=== PATIENT | male | born 1955 | race Caucasian/White ===

== ENCOUNTER 2020-02-08 06:24 | Inpatient (IN) ==
--- OUTSIDE RECORDS SUMMARY | 2020-02-08 06:28 | External Medical Summary | Continuity of Care Document ---
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 Refills: 0 metFORMIN HCl - 500 MG Oral Tablet; Take 1 tablet twice ugo y with meals Quantity: 60 Refills: 3 Spironolactone 25 MG Oral Tablet; TAKE 1 TABLET DAILY. Refills: 0 Potassium Chloride 10 MEQ TBCR; TAKE 1 TABLET DAILY. Refills: 0 Furosemide 40 MG Oral Tablet; TAKE 1 TABLET DAILY. Refills: 0 Amiodarone HCl - 200 MG Oral Tablet; TAKE 1/2 TABLET DAILY. Refills: 0 Valsartan 160 MG Oral Tablet; take 1/2 tablet once daily. Refills: 0 Atorvastatin Calcium 40 MG Oral Tablet; TAKE 1/2 TABLET UGO Y. Refills: 0 Warfarin Sodium 7.5 MG Oral Tablet; TAKE 1 1/2 TABLET DAILY. Refills: 0 Procedures History of Appendectomy Status: Complete d History of Pilonidal Cyst Resection Stat us: Completed History of Surgery Vas Deferens Vasectomy Status: Completed History of Tonsillectomy Status: Complet ed History of Foot Surgery Status: Complete d History of Complete Colonoscopy Status: Completed History of Incision And Drainage Of Skin Abscess Status: Completed Neck Posterior History of Excision Of Lesion Neck Benign 2.1 To Status: Completed 29-Dec-2015 0:00 3cm Immunizations Immunizations not documented Family History Mother Family history of hypertension (V17.49) (Z82.49) Status: Act christiano Family history of borderline diabetes mellitus (V18.0) (Z83. 3) Status: Active Family history of malignant neoplasm (V16.9) (Z80.9) Status: Active Father Family history of hypertension (V17.49) (Z82.49) Status: Act christiano Family history of Emphysema lung (492.8) (J43.9) Status: Act christiano Grandmother Family history of borderline diabetes mellitus (V18.0) (Z83. 3) Status: Active Grandfather Family history of cardiac disorder (V17.49) (Z82.49) Status: Active Social History - Smoking Status Ex-smoker Plan of Treatment Planned Observations Planned Goals not documented Results No Known Results Results not documented Encounters Appointment; Surg SC1, Nursing Station 12-Jan-2016 8:30 Encounter Diagnosis: Problem not documented
--- OUTSIDE RECORDS SUMMARY | 2020-02-08 06:28 | External Medical Summary | Continuity of Care Document ---
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 Refills: 0 Atorvastatin Calcium 40 MG Oral Tablet; TAKE 1/2 TABLET UGO Y. Refills: 0 Valsartan 160 MG Oral Tablet; take 1/2 tablet once daily. Refills: 0 Amiodarone HCl - 200 MG Oral Tablet; TAKE 1/2 TABLET DAILY. Refills: 0 Furosemide 40 MG Oral Tablet; TAKE 1 TABLET DAILY. Refills: 0 Potassium Chloride 10 MEQ TBCR; TAKE 1 TABLET DAILY. Refills: 0 Spironolactone 25 MG Oral Tablet; TAKE 1 TABLET DAILY. Refills: 0 metFORMIN HCl - 500 MG Oral Tablet; Take 1 tablet twice ugo y with meals Quantity: 60 Refills: 3 Coreg 6.25 MG Oral Tablet; TAKE 1 TABLET TWICE DAILY WITH ME ALS. Refills: 0 Procedures History of Appendectomy Status: [...] (Z82.49) Status: Act christiano Family history of malignant neoplasm (V16.9) (Z80.9) Status: Active Family history of borderline diabetes mellitus (V18.0) (Z83. 3) Status: Active Father Family history of hypertension (V17.49) (Z82.49) Status: Act christiano Family history of Emphysema lung (492.8) (J43.9) Status: Act christiano Grandfather Family history of cardiac disorder (V17.49) (Z82.49) Status: Active Grandmother Family history of borderline diabetes mellitus (V18.0) (Z83. 3) Status: Active Social History - Smoking Status Ex-smoker Plan of Treatment Planned Observations Planned Goals not documented Results No Known Results Results not documented Encounters Appointment; Surg SC1, Nursing Station 12-Jan-2016 8:30 Encounter Diagnosis: Problem not documented
[2020-02-08] MEDS ORDERED: METOPROLOL TARTRATE 1 MG/ML VIAL IV STA ×2 (06:35→07:27)
[2020-02-08 06:52] LABS: Basophils # (auto) 0.03 K/uL (0-0.2); Basophils % (auto) 0.2 %; Eosinophils # (auto) 0.26 K/uL (0-0.5); Eosinophils % (auto) 1.9 %; Hematocrit (blood only) 41.1 % (42-52); Hemoglobin 13.3 g/dL (14.0-18.0); Immature Granulocytes # (auto) 0.05 K/uL (0.00-0.02); Immature Granulocytes % (auto) 0.4 %; Lymphocytes # (auto) 2.88 K/uL (1.2-3.4); Lymphocytes % (auto) 20.7 %; Mean Corpuscular Hemoglobin 26.3 pg (25-34); Mean Corpuscular Hgb Conc 32.4 g/dL (32-36); Mean Corpuscular Volume 81.4 fL (80-100); Mean Platelet Volume 10.5 fL (7.4-10.4); Monocytes # (auto) 1.13 K/uL (0.11-0.59); Monocytes % (auto) 8.1 %; Neutrophils # (auto) 9.59 K/uL (1.4-6.5); Neutrophils % (auto) 68.7 %; Platelet Count 274 K/uL (130-400); RDW Coefficient of Variation 14.3 % (11.5-14.5); RDW Standard Deviation 42.3 fL (36.4-46.3); Red Blood Count 5.05 M/uL (4.7-6.1); White Blood Count 13.94 K/uL (4.8-10.8)
[2020-02-08 07:09] LABS: Albumin Level 3.9 gm/dl (3.4-5.0); BUN Creatinine Ratio 13.6 (10-20); Calcium 9.1 mg/dl (8.5-10.1); Creatinine Clr Calc Pharmacy 64.8 ml/min; Est GFR (African American) 56.4; Est GFR (Non-African American) 48.7; Magnesium 2.2 mg/dl (1.8-2.4); Potassium 4.3 mmol/L (3.5-5.1)
[2020-02-08 07:20] LABS: Globulin 4.1 gm/dl (2.5-4.0); Phosphorus 3.4 mg/dl (2.5-4.9); Thyroid Stimulating Hormone 1.5 uIu/ml (0.300-4.500)
[2020-02-08 07:45] LABS: Partial Thromboplastin Ratio 1.1; Partial Thromboplastin Time 29.9 Seconds (21.0-31.0)
[2020-02-08] MEDS ORDERED: dilTIAZem HCl 5 MG/ML 5 ML VIAL IV STA (07:47)
--- NOTE | 2020-02-08 07:52 | XRay Report ---
XR chest 1V portable CLINICAL HISTORY: atrial fib COMPARISON STUDY: Chest radiograph May 05, 2015. FINDINGS: Lung volumes are normal. There is moderate cardiomegaly. No pneumothorax is noted. There ar e suspected trace bilateral pleural effusions. Interstitial thickening favors mild pulmonary edema. T here are Cecy B lines. Cardiomegaly is unchanged. IMPRESSION: 1. Interstitial thickening suggestive of mild pulmonary edema. 2. Suspected trace bilateral pleural effusions. 3. Cardiomegaly. ACT 112: Negative or not required by law. Electronically signed by: Bird Chatman M.D. 02/08/2020 7:51 AM
[2020-02-08] MEDS ORDERED: FUROSEMIDE 40 MG/4 ML VIAL IV STA (08:36)
[2020-02-08] MEDS ORDERED: ACETAMINOPHEN 325 MG TAB PO PRN (08:38)
[2020-02-08] MEDS ORDERED: POLYETHYLENE (MIRALAX) 17 GM PACK PO PRN (08:38)
--- NOTE | 2020-02-08 09:07 | History & Physical Report ---
Date of Service February 08, 2020 Assessment & Plan (1) Atrial fibrillation with RVR: History of A. fib with RVR, status post cardioversion in 2016 Recurrence of A. fib with RVR, and was planned for cardioversion early next week, however presented with increased shortness of breath EKG in ED, shows A. fib with RVR, and chronic LBBB, chest x-ray notable for increased interstitial markings, proBNP around 3000 potassium normal at 4.3, magnesium normal at 2.2, will keep K>4, Mg>2 TSH normal 1.5 History of cardiomyopathy, in 2016, then return to normal LV function, however now presents with CHF exacerbation likely secondary to increased heart rate Plan to obtain echocardiogram Plan for cardioversion tomorrow, February 08 NPO after MN Cont. home medications, Coreg, losartan, spironolactone, furosemide Patient received 40 mg IV furosemide in the ED Dr. Bolden, cardiology, contacted by the ED provider, appreciate their input (2) Hypertension: Continue home Coreg, losartan, spironolactone (3) Hyperlipidemia: Continue home Lipitor (4) CKD (chronic kidney disease) stage 3, GFR 30-59 ml/min: Continue monitor renal function, currently at baseline Try to avoid NSAIDs, nephrotoxic agents (5) Diabetes: At home, patient is on oral regimen Metformin and Invokana As it is expected that patient will be likely discharged after cardioversion tomorrow, will continue home medications DVT ppx: On Eliquis Full code Disposition: Plan to return home after cardioversion tomorrow History of Present Illness Chief Complaint: Shortness of breath, Afib w/ RVR Primary Care Provider: Ivan Justin DO Patient is a 65-year-old male, with history of A. fib, hx of nonischemic cardiomyopathy in 2016, with return to normal LV function, chronic left bundle branch block, hypertension, hyperlipidemia, type of diabetes mellitus, hyperferritinenemia, who presents with shortness of breath. Patient has history of A. fib with RVR, underwent cardioversion in 2016. Since then he has been doing well until about 3 weeks ago when he again became dizzy, and short of breath. Patient states he never experienced palpitations. He follows with Dr. Bolden, from cardiology service, for his atrial fibrillation and as a matter of fact he was scheduled for cardioversion early next week. However over the weekend patient developed increased shortness of breath and therefore now presented to the emergency room. Patient was also recently started on Eliquis by Dr. Bolden. Patient denies any fevers or chills. Denies any sick contacts. Had Covid testing done on February 05, and was negative. Denies any abdominal pain, nausea or vomiting. Says that he has good appetite, however he lost significant amount of weight, since his [facility] in June 2019 . Patient states that he has been more active in his yard, and unfortunately his work was very sedentary. He did notice though that in the past couple of days he accumulated more fluid in his abdominal girth and lower extremities. Patient's is at the bedside, and confirms that his abdomen is now little bigger than his normal after he lost weight. Also she feels that his lower extremities are slightly more swollen. Chest x-ray in emergency room showed some interstitial pulmonary edema. In emergency room, patient was given IV Lasix 40 mg, metoprolol IV and diltiazem IV. Dr. Bolden was contacted by ED provider. Plan for cardioversion tomorrow (02/09/2020). Allergies Allergy/AdvReac Type Severity Reaction Status Date / Time cephalexin Allergy Intermediate hives Verified 02/08/20 06:54 Home Medications Home Medications Medication Instructions Recorded Confirmed Type apixaban [Eliquis] 5 mg PO BID 02/08/20 02/08/20 History atorvastatin 40 mg PO DAILY 02/08/20 02/08/20 History canagliflozin [Invokana] 300 mg PO DAILY 02/08/20 02/08/20 History carvedilol 9.375 mg PO BID 02/08/20 02/08/20 History furosemide [Lasix] 20 mg PO DAILY 02/08/20 02/08/20 History losartan 50 mg PO DAILY 02/08/20 02/08/20 History metformin 1,000 mg PO BIDM 02/08/20 02/08/20 History potassium chloride 10 meq PO DAILY 02/08/20 02/08/20 History spironolactone 25 mg PO DAILY 02/08/20 02/08/20 History Past Med/Surg History Medical History (Updated 02/08/20 @ 11:41 by [place] Mckinney MD) Atrial fibrillation with RVR CKD (chronic kidney disease) stage 3, GFR 30-59 ml/min Diabetes H/O pilonidal cyst Hyperlipidemia Hypertension LBBB (left bundle branch block) Tachycardia induced cardiomyopathy Thyroid nodule Surgical History H/O colonoscopy S/P appendectomy S/P T&A (status post tonsillectomy and adenoidectomy) S/P vasectomy Family History Mother Cancer lung Father Emphysema lung Hypertension Grandfather (Paternal) Heart disease [place] at age 65 Grandmother Diabetes Social History Smoking Status: Never smoker Hx Alcohol Use: Yes Hx Substance Use: No Preferred Language: German Communication Ability: Effective Beliefs That Will Affect Care: None Current Living Situation: Spouse Other Information That Helps Us Care for You: No Feels Safe at Home: Yes Safety Concerns: Feels Safe At This Time Assistive Devices: Glasses Assistive Devices Comment: reading glasses Review of Systems Review of Systems: All systems reviewed & are unremarkable except as noted in HPI & below Constitutional: no fever and no chills Eyes: no problem reported Ear, Nose, Mouth, Throat: no problem reported Respiratory: + dyspnea; no cough Cardiovascular: + edema (abdominal girth and LE edema b/l); no chest pain and no palpitations Gastrointestinal: no abdominal pain, no nausea and no vomiting Genitourinary: no problem reported Musculoskeletal: no problem reported Integumentary: no problem reported Neurologic: no problem reported Psychiatric: no problem reported Endocrine: no problem reported Hematologic / Lymphatic: no problem reported Allergy / Immunological: no problem reported Physical Exam Physical Exam: Constitutional: Elderly male, lying in bed, in no acute distress, WD/WN, vitals as above Eyes: PERRL, EOMI, conjunctivae normal, anicteric sclerae ENMT: external ear and nose normal, oropharynx normal Neck: trachea midline, no thyromegaly Respiratory: normal respiratory effort, lungs clear to auscultation Cardiovascular: Rate/Rhythm: + tachycardic and + irregularly irregular Heart Sounds: normal S1 and normal S2; no gallop and no murmur, no JVD and no carotid bruit Extremities: + edema (1-2+) Gastrointestinal (Abdomen): normal bowel sounds, soft, nontender, mildly distended Musculoskeletal: no cyanosis or clubbing, extremities motor strength 5/5, moves extremities spontaneously Skin: no rashes, warm and dry Neurologic: PERRL, EOMI, no face palsy, no dysarthria, moves extremities spontaneously Psychiatric: A+Ox3, euthymic affect Results & Data Results & Data ([facility]) Vital Signs (Past 12 Hours) Vital Signs Temp Pulse Pulse Resp BP BP Pulse Ox 02/08/20 08:30 95 H 18 130/83 96 02/08/20 08:20 110 H 20 97 02/08/20 08:10 93 H 18 96 02/08/20 08:02 126 H 19 121/95 95 02/08/20 08:01 118 H 132 H 19 121/95 96 02/08/20 08:00 121 H 21 97 02/08/20 07:50 113 H 18 95 02/08/20 07:40 102 H 18 95 02/08/20 07:35 102 H 20 136/85 96 02/08/20 07:31 120 H 20 136/85 96 02/08/20 07:30 127 H 16 97 02/08/20 07:20 118 H 21 96 02/08/20 07:10 130 H 18 96 02/08/20 07:00 122 H 17 96 02/08/20 06:50 106 H 17 98 02/08/20 06:44 132 H 123/89 02/08/20 06:41 98 02/08/20 06:40 136 H 16 97 02/08/20 06:32 37.1 C 126 H 20 123/89 99 02/08/20 06:31 157 H 18 123/89 98 02/08/20 06:30 117 H 9 L Laboratory Results 02/08/20 02/08/20 02/08/20 Range/Units 06:37 06:37 06:37 WBC 13.94 H (4.8-10.8) K/uL RBC 5.05 (4.7-6.1) M/uL Hgb 13.3 L (14.0-18.0) g/dL Hct 41.1 L (42-52) % MCV 81.4 (80-100) fL MCH 26.3 (25-34) pg MCHC 32.4 (32-36) g/dL RDW Std Deviation 42.3 (36.4-46.3) fL RDW Coeff of Josey 14.3 (11.5-14.5) % Plt Count 274 (130-400) K/uL MPV 10.5 H (7.4-10.4) fL Immature Gran % (Auto) 0.4 % Neut % (Auto) 68.7 % Lymph % (Auto) 20.7 % [place] % (Auto) 8.1 % Eos % (Auto) 1.9 % Baso % (Auto) 0.2 % Neut # (Auto) 9.59 H (1.4-6.5) K/uL Lymph # (Auto) 2.88 (1.2-3.4) K/uL [place] # (Auto) 1.13 H (0.11-0.59) K/uL Eos # (Auto) 0.26 (0-0.5) K/uL Baso # (Auto) 0.03 (0-0.2) K/uL Immature Gran # (Auto) 0.05 H (0.00-0.02) K/uL APTT 29.9 (21.0-31.0) Seconds PTT Ratio 1.1 Sodium 137 (136-145) mmol/L Potassium 4.3 (3.5-5.1) mmol/L Chloride 105 (98-107) mmol/L Carbon Dioxide 26 (21-32) mmol/L Anion Gap 6.0 (3-11) BUN 20 H (7-18) mg/dl Creatinine 1.47 H (0.6-1.4) mg/dl Est Cr Clr Drug Dosing 64.8 ml/min Est GFR ( Amer) 56.4 Est GFR (Non-Af Amer) 48.7 BUN/Creatinine Ratio 13.6 (10-20) Glucose 144 H (70-99) mg/dl Calcium 9.1 (8.5-10.1) mg/dl Phosphorus 3.4 (2.5-4.9) mg/dl Magnesium 2.2 (1.8-2.4) mg/dl Total Bilirubin 1.0 (0.2-1) mg/dl AST 15 (15-37) U/L ALT 28 (12-78) U/L Alkaline Phosphatase 73 (45-117) U/L Total Protein 8.0 (6.4-8.2) gm/dl Albumin 3.9 (3.4-5.0) gm/dl Globulin 4.1 H (2.5-4.0) gm/dl Albumin/Globulin Ratio 1.0 (0.9-2) TSH 1.500 (0.300-4.500) uIu/ml Diagnostic Findings CXR 02/08/2020 IMPRESSION: 1. Interstitial thickening suggestive of mild pulmonary edema. 2. Suspected trace bilateral pleural effusions. 3. Cardiomegaly.
--- NOTE | 2020-02-08 10:27 | Cardiology Consultation ---
Date of Consultation February 08, 2020 Assessment & Plan (1) Atrial fibrillation with RVR: Patient is a 65-year-old male with past history of tachycardia mediated cardiomyopathy, chronic left bundle branch block presents now with episodic dyspnea. He is recently been observed of lapsed back into atrial fibrillation and has anticipated synchronized electrical cardioversion. Exam and history suggest moderate heart failure due to elevation in heart rates, possible decline in overall systolic Plan: Patient received a single dose of IV furosemide appropriately in the emergency room. Echocardiogram will be ordered to assess LV function Patient to be kept n.p.o. with anticipation of synchronized electrical cardioversion in a.m. Continue prehospital medications (2) LBBB (left bundle branch block): (3) Tachycardia induced cardiomyopathy: Echocardiogram to be reviewed today (4) Congestive heart failure due to cardiomyopathy: Agree with IV furosemide administered today (5) CKD (chronic kidney disease) stage 3, GFR 30-59 ml/min: (6) Hypertension: (7) Diabetes: History of Present Illness Reason for Consultation: Atrial fibrillation with rapid response, acute dyspnea Requesting Physician: Dr. Guerra Attending Physician: Dr Mckinney History of Present Illness Patient is a 65-year-old male with ongoing issues which include 1. Nonischemic cardiomyopathy diagnosed April 2015 with return to normal LV function 2. Tachycardia mediated LV dysfunction with atrial fibrillation with rapid response 3. Chronic left bundle branch block 4. Hypertension 5. Cardiac catheterization 2015 without obstructive coronary disease 6. Hyperlipidemia on therapy 7. Hyperglycemia Patient's recent history is notable for a lapse back into atrial fibrillation documented on 01/15/2020. Anticoagulation was reinitiated. He is currently scheduled for planned cardioversion next week however is had episodic events of acute dyspnea at night. He presented emergency room due to symptoms or complaints. Atrial fibrillation rates elevated on presentation. Chest x-ray with mild increase in interstitial markings and edema. No fevers chills unexplained infections. No bleeding difficulties. COVID-19 screen 02/06/2020 negative Allergies Allergy/AdvReac Type Severity Reaction Status Date / Time cephalexin Allergy Intermediate hives Verified 02/08/20 06:54 Home Medications Home Medications Medication Instructions Recorded Confirmed Type apixaban [Eliquis] 5 mg PO BID 02/08/20 02/08/20 History atorvastatin 40 mg PO DAILY 02/08/20 02/08/20 History canagliflozin [Invokana] 300 mg PO DAILY 02/08/20 02/08/20 History carvedilol 9.375 mg PO BID 02/08/20 02/08/20 History furosemide [Lasix] 20 mg PO DAILY 02/08/20 02/08/20 History losartan 50 mg PO DAILY 02/08/20 02/08/20 History metformin 1,000 mg PO BIDM 02/08/20 02/08/20 History potassium chloride 10 meq PO DAILY 02/08/20 02/08/20 History spironolactone 25 mg PO DAILY 02/08/20 02/08/20 History Patient History Medical History Atrial fibrillation with RVR Diabetes H/O pilonidal cyst Hyperlipidemia Hypertension Thyroid nodule Surgical History H/O colonoscopy S/P appendectomy S/P T&A (status post tonsillectomy and adenoidectomy) S/P vasectomy Family History Mother Cancer lung Father Emphysema lung Hypertension Grandfather (Paternal) Heart disease [place] at age 65 Grandmother Diabetes Social History Smoking Status: Never smoker Feels Safe at Home: Yes Review of Systems Review of Systems: All systems reviewed & are unremarkable except as noted in HPI & below Physical Exam Constitutional: WD/WN, vitals as above Eyes: PERRL, conjunctivae normal, anicteric sclerae ENMT: external ear and nose normal, oropharynx normal Neck: trachea midline, no thyromegaly Respiratory: normal respiratory effort, lungs clear to auscultation Cardiovascular: Rate/Rhythm: + tachycardic and + irregularly irregular Heart Sounds: normal S1 and normal S2; no gallop and no murmur Palpation: normal PMI Vessels: normal carotid upstroke and radial pulses present; no JVD and no carotid bruit Extremities: + edema (1-2+) Gastrointestinal (Abdomen): normal bowel sounds, soft, nontender, no hepatosplenomegaly Musculoskeletal: no cyanosis or clubbing, extremities motor strength 5/5 Skin: no rashes, warm and dry Neurologic: PERRL, EOMI, accommodation nl, no face palsy, no dysarthria Psychiatric: A+Ox3, euthymic affect Results & Data ([facility]) Vital Signs (Past 12 Hours) Vital Signs Temp Pulse Pulse Resp BP BP Pulse Ox 02/08/20 10:00 110 H 19 97/84 L 97 02/08/20 09:50 89 17 98 02/08/20 09:40 75 15 98 02/08/20 09:34 104 H 20 126/79 98 02/08/20 09:33 120 H 18 97 02/08/20 09:20 98 H 19 96 02/08/20 09:10 94 H 18 96 02/08/20 09:00 117 H 22 120/85 97 02/08/20 08:50 99 H 17 96 02/08/20 08:40 95 H 15 97 02/08/20 08:30 95 H 18 130/83 96 02/08/20 08:20 110 H 20 97 02/08/20 08:10 93 H 18 96 02/08/20 08:02 126 H 19 121/95 95 02/08/20 08:01 118 H 132 H 19 121/95 96 02/08/20 08:00 121 H 21 97 02/08/20 07:50 113 H 18 95 02/08/20 07:40 102 H 18 95 02/08/20 07:35 102 H 20 136/85 96 02/08/20 07:31 120 H 20 136/85 96 02/08/20 07:30 127 H 16 97 02/08/20 07:20 118 H 21 96 02/08/20 07:10 130 H 18 96 02/08/20 07:00 122 H 17 96 02/08/20 06:50 106 H 17 98 02/08/20 06:44 132 H 123/89 02/08/20 06:41 98 02/08/20 06:40 136 H 16 97 02/08/20 06:32 37.1 C 126 H 20 123/89 99 02/08/20 06:31 157 H 18 123/89 98 02/08/20 06:30 117 H 9 L Laboratory Results Laboratory Results - last 24 hr 02/08/20 02/08/20 02/08/20 06:37 06:37 06:37 WBC 13.94 H RBC 5.05 Hgb 13.3 L Hct 41.1 L MCV 81.4 MCH 26.3 MCHC 32.4 RDW Std Deviation 42.3 RDW Coeff of Josey 14.3 Plt Count 274 MPV 10.5 H Immature Gran % (Auto) 0.4 Neut % (Auto) 68.7 Lymph % (Auto) 20.7 [place] % (Auto) 8.1 Eos % (Auto) 1.9 Baso % (Auto) 0.2 Neut # (Auto) 9.59 H Lymph # (Auto) 2.88 [place] # (Auto) 1.13 H Eos # (Auto) 0.26 Baso # (Auto) 0.03 Immature Gran # (Auto) 0.05 H APTT 29.9 PTT Ratio 1.1 Sodium 137 Potassium 4.3 Chloride 105 Carbon Dioxide 26 Anion Gap 6.0 BUN 20 H Creatinine 1.47 H Est Cr Clr Drug Dosing 64.8 Est GFR ( Amer) 56.4 Est GFR (Non-Af Amer) 48.7 BUN/Creatinine Ratio 13.6 Glucose 144 H Calcium 9.1 Phosphorus 3.4 Magnesium 2.2 Total Bilirubin 1.0 AST 15 ALT 28 Alkaline Phosphatase 73 NT-Pro-B Natriuret Pep Total Protein 8.0 Albumin 3.9 Globulin 4.1 H Albumin/Globulin Ratio 1.0 TSH 1.500 02/08/20 06:37 WBC RBC Hgb Hct MCV MCH MCHC RDW Std Deviation RDW Coeff of Josey Plt Count MPV Immature Gran % (Auto) Neut % (Auto) Lymph % (Auto) [place] % (Auto) Eos % (Auto) Baso % (Auto) Neut # (Auto) Lymph # (Auto) [place] # (Auto) Eos # (Auto) Baso # (Auto) Immature Gran # (Auto) APTT PTT Ratio Sodium Potassium Chloride Carbon Dioxide Anion Gap BUN Creatinine Est Cr Clr Drug Dosing Est GFR ( Amer) Est GFR (Non-Af Amer) BUN/Creatinine Ratio Glucose Calcium Phosphorus Magnesium Total Bilirubin AST ALT Alkaline Phosphatase NT-Pro-B Natriuret Pep 3037 H Total Protein Albumin Globulin Albumin/Globulin Ratio TSH
[2020-02-08] MEDS ORDERED: PERFLUTREN LIPID MICROSPHERE (DEFINITY) IV ONE (11:44)
[2020-02-08] MEDS: carvediloL 6.25 MG TAB PO SCH ×2 (12:15→20:33)
[2020-02-08] MEDS: SPIRONOLACTONE 25 MG TAB PO SCH (12:16)
[2020-02-08] MEDS: LOSARTAN POTASSIUM 50 MG TAB PO SCH (12:16)
[2020-02-08] MEDS: FUROSEMIDE 20 MG TAB PO SCH (12:17)
[2020-02-08] MEDS: ATORVASTATIN 40 MG TAB PO SCH (12:17)
[2020-02-08] MEDS: APIXABAN 5 MG TABLET PO SCH ×2 (12:17→20:34)
--- NOTE | 2020-02-08 13:17 | Anesthesiology Consultation ---
Date of Service February 08, 2020 Assessment & Plan Chart Review Chart Review: Acceptable Risk for Surgery and Patient NOT seen in Pre Admission Testing History Height/Weight Height: 6 ft 1 in Weight: 112.5 kg Allergies Allergy/AdvReac Type Severity Reaction Status Date / Time cephalexin Allergy Intermediate hives Verified 02/08/20 06:54 Medications Home Medications Medication Instructions Recorded Confirmed Last Taken apixaban [Eliquis] 5 mg PO BID 02/08/20 02/08/20 02/07/20 atorvastatin 40 mg PO DAILY 02/08/20 02/08/20 02/07/20 canagliflozin [Invokana] 300 mg PO DAILY 02/08/20 02/08/20 02/07/20 carvedilol 9.375 mg PO BID 02/08/20 02/08/20 02/07/20 furosemide [Lasix] 20 mg PO DAILY 02/08/20 02/08/20 02/07/20 losartan 50 mg PO DAILY 02/08/20 02/08/20 02/07/20 metformin 1,000 mg PO BIDM 02/08/20 02/08/20 02/07/20 potassium chloride 10 meq PO DAILY 02/08/20 02/08/20 02/07/20 spironolactone 25 mg PO DAILY 02/08/20 02/08/20 02/07/20 Active Medications Generic Name Dose Route Start Last Admin Trade Name Freq PRN Reason Stop Dose Admin Apixaban 5 mg 02/08/20 11:15 02/08/20 12:17 Apixaban 5 Mg Tablet PO 03/09/20 11:14 5 mg BID MYNOR Administration Atorvastatin Calcium 40 mg 02/08/20 11:15 02/08/20 12:17 Atorvastatin 40 Mg Tab PO 03/09/20 11:14 40 mg DAILY MYNOR Administration Carvedilol 9.375 mg 02/08/20 11:15 02/08/20 12:15 Carvedilol 6.25 Mg Tab PO 03/09/20 11:14 9.375 mg BID MYNOR Administration Furosemide 20 mg 02/08/20 11:15 02/08/20 12:17 Furosemide 20 Mg Tab PO 03/09/20 11:14 Not Given DAILY MYNOR Losartan Potassium 50 mg 02/08/20 11:15 02/08/20 12:16 Losartan Potassium 50 Mg Tab PO 03/09/20 11:14 50 mg DAILY MYNOR Administration Miscellaneous 1 ea 02/08/20 12:00 02/08/20 12:18 Canagliflozin [Invokana] 300 Mg: Order Awaiting Action N/A 03/09/20 11:59 Not Given QS MYNOR Spironolactone 25 mg 02/08/20 11:15 02/08/20 12:16 Spironolactone 25 Mg Tab PO 03/09/20 11:14 25 mg DAILY MYNOR Administration Past Medical History Medical History Atrial fibrillation with RVR CKD (chronic kidney disease) stage 3, GFR 30-59 ml/min Diabetes H/O pilonidal cyst Hyperlipidemia Hypertension LBBB (left bundle branch block) Tachycardia induced cardiomyopathy Thyroid nodule Past Family History Family History Mother Cancer lung Father Emphysema lung Hypertension Grandfather (Paternal) Heart disease [place] at age 65 Grandmother Diabetes Past Surgical History Surgical History H/O colonoscopy S/P appendectomy S/P T&A (status post tonsillectomy and adenoidectomy) S/P vasectomy Social History Smoking Status: Never smoker Hx Alcohol Use: Yes alcohol intake frequency: a few times a month Hx Substance Use: No substance use type: does not use Physical Exam Vital Signs Last Vital Signs Temp 36.3 C L 02/08/20 11:45 Pulse 109 H 02/08/20 11:45 Resp 18 02/08/20 11:45 BP 135/85 02/08/20 11:45 Pulse Ox 99 02/08/20 11:45 Testing Laboratory Results 02/08/20 06:37 02/08/20 06:37 APTT 29.9 Seconds (21.0-31.0) 02/08/20 06:37 02/08/20 11:58 POC Glucose 113 H
--- NOTE | 2020-02-08 14:06 | Emergency Department Note ---
History of Present Illness General Chief complaint: Tachycardia Stated complaint: SOB,A-FIB Time Seen by Provider: 02/08/20 06:34 Source: patient and RN notes reviewed Mode of arrival: ambulatory Limitations: no limitations History of Present Illness Provider complaint: Shortness of breath, cough Maximum Pain Intensity: 0 This patient is a 65-year-old male who presents to the emergency department with complaints of sudden onset shortness of breath sometime around 2 AM. The patient states he has a history of atrial fibrillation and follows with Dr. Edgar Bolden of cardiology at [facility]. He is scheduled for cardioversion in 3 days, patient states he is taking Eliquis and has tested Covid negative in preparation for the procedure. He denies any palpitations or chest pain related to the atrial fibrillation, rather states he is primarily short of breath. He states last time he was "in congestive heart failure" and his symptoms were much worse, but he waited much longer. He denies any cough, fever, abdominal pain, vomiting or diarrhea. The patient did not take his morning medications. The patient had a half a cup of tea at approximately 130/2:00 this morning but denies any other food or fluid ingestion in the last 8 hours. Home Medications Home Medications Medication Instructions Recorded Confirmed Type apixaban [Eliquis] 5 mg PO BID 02/08/20 02/08/20 History atorvastatin 40 mg PO DAILY 02/08/20 02/08/20 History canagliflozin [Invokana] 300 mg PO DAILY 02/08/20 02/08/20 History carvedilol 9.375 mg PO BID 02/08/20 02/08/20 History furosemide [Lasix] 20 mg PO DAILY 02/08/20 02/08/20 History losartan 50 mg PO DAILY 02/08/20 02/08/20 History metformin 1,000 mg PO BIDM 02/08/20 02/08/20 History potassium chloride 10 meq PO DAILY 02/08/20 02/08/20 History spironolactone 25 mg PO DAILY 02/08/20 02/08/20 History Allergies Allergy/AdvReac Type Severity Reaction Status Date / Time cephalexin Allergy Intermediate hives Verified 02/08/20 06:54 Past Med/Surg History Medical History Atrial fibrillation with RVR CKD (chronic kidney disease) stage 3, GFR 30-59 ml/min Diabetes H/O pilonidal cyst Hyperlipidemia Hypertension LBBB (left bundle branch block) Tachycardia induced cardiomyopathy Thyroid nodule Surgical History H/O colonoscopy S/P appendectomy S/P T&A (status post tonsillectomy and adenoidectomy) S/P vasectomy Family History Mother Cancer lung Father Emphysema lung Hypertension Grandfather (Paternal) Heart disease [place] at age 65 Grandmother Diabetes Social History Smoking Status: Never smoker Hx Alcohol Use: Yes Hx Substance Use: No Preferred Language: Romanian Communication Ability: Effective Beliefs That Will Affect Care: None Current Living Situation: Spouse Other Information That Helps Us Care for You: No Feels Safe at Home: Yes Safety Concerns: Feels Safe At This Time Assistive Devices: Glasses Assistive Devices Comment: reading glasses Review of Systems See HPI for pertinent positives & negatives. and A total of 10 systems reviewed and were otherwise negative Physical Exam Vital Signs Vital Signs - 24 hr 02/08/20 06:30 02/08/20 06:31 02/08/20 06:32 Temperature 37.1 C Temperature Source Oral Pulse Rate 117 H 157 H 126 H Pulse Rate [Right Finger] Pulse Rate from SpO2 Sensor 114 H Pulse Rhythm Irregular Respiratory Rate 9 L 18 20 Respiratory Effort / Characteristics Non-Labored Respiratory Depth Normal Respiratory Pattern Blood Pressure 123/89 123/89 Blood Pressure [Right Arm] Blood Pressure Mean 102 100 Blood Pressure Mean [Right Arm] Blood Pressure Position [Right Arm] Pulse Oximetry 98 99 Oxygen Delivery Method Room Air Room Air Sepsis Recent Fever Within 48 Hours No Sepsis New/Unexplained Change in Mental Status No Sepsis Action Taken by Nursing No Action Required 02/08/20 06:40 02/08/20 06:41 02/08/20 06:44 Temperature Temperature Source Pulse Rate 136 H 132 H Pulse Rate [Right Finger] Pulse Rate from SpO2 Sensor 126 H Pulse Rhythm Respiratory Rate 16 Respiratory Effort / Characteristics Respiratory Depth Respiratory Pattern Blood Pressure 123/89 Blood Pressure [Right Arm] Blood Pressure Mean Blood Pressure Mean [Right Arm] Blood Pressure Position [Right Arm] Pulse Oximetry 97 98 Oxygen Delivery Method Room Air Sepsis Recent Fever Within 48 Hours Sepsis New/Unexplained Change in Mental Status Sepsis Action Taken by Nursing 02/08/20 06:50 02/08/20 07:00 02/08/20 07:10 Temperature Temperature Source Pulse Rate 106 H 122 H 130 H Pulse Rate [Right Finger] Pulse Rate from SpO2 Sensor 97 H 107 H 118 H Pulse Rhythm Respiratory Rate 17 17 18 Respiratory Effort / Characteristics Respiratory Depth Respiratory Pattern Blood Pressure Blood Pressure [Right Arm] Blood Pressure Mean Blood Pressure Mean [Right Arm] Blood Pressure Position [Right Arm] Pulse Oximetry 98 96 96 Oxygen Delivery Method Room Air Room Air Sepsis Recent Fever Within 48 Hours Sepsis New/Unexplained Change in Mental Status Sepsis Action Taken by Nursing 02/08/20 07:20 02/08/20 07:30 02/08/20 07:31 Temperature Temperature Source Pulse Rate 118 H 127 H 120 H Pulse Rate [Right Finger] Pulse Rate from SpO2 Sensor 117 H 100 H 94 H Pulse Rhythm Respiratory Rate 21 16 20 Respiratory Effort / Characteristics Respiratory Depth Respiratory Pattern Blood Pressure 136/85 Blood Pressure [Right Arm] Blood Pressure Mean 94 Blood Pressure Mean [Right Arm] Blood Pressure Position [Right Arm] Pulse Oximetry 96 97 96 Oxygen Delivery Method Room Air Sepsis Recent Fever Within 48 Hours Sepsis New/Unexplained Change in Mental Status Sepsis Action Taken by Nursing 02/08/20 07:35 02/08/20 07:40 02/08/20 07:50 Temperature Temperature Source Pulse Rate 102 H 113 H Pulse Rate [Right Finger] 102 H Pulse Rate from SpO2 Sensor 111 H 100 H Pulse Rhythm Respiratory Rate 20 18 18 Respiratory Effort / Characteristics Non-Labored Spontaneous Respiratory Depth Normal Respiratory Pattern Regular Blood Pressure Blood Pressure [Right Arm] 136/85 Blood Pressure Mean Blood Pressure Mean [Right Arm] 102 Blood Pressure Position [Right Arm] Lying Pulse Oximetry 96 95 95 Oxygen Delivery Method Room Air Sepsis Recent Fever Within 48 Hours Sepsis New/Unexplained Change in Mental Status Sepsis Action Taken by Nursing 02/08/20 08:00 02/08/20 08:01 02/08/20 08:02 Temperature Temperature Source Pulse Rate 121 H 118 H 126 H Pulse Rate [Right Finger] 132 H Pulse Rate from SpO2 Sensor 113 H 109 H 100 H Pulse Rhythm Respiratory Rate 21 19 19 Respiratory Effort / Characteristics Respiratory Depth Respiratory Pattern Blood Pressure 121/95 Blood Pressure [Right Arm] 121/95 Blood Pressure Mean 96 99 Blood Pressure Mean [Right Arm] 103 Blood Pressure Position [Right Arm] Pulse Oximetry 97 96 95 Oxygen Delivery Method Room Air Sepsis Recent Fever Within 48 Hours Sepsis New/Unexplained Change in Mental Status Sepsis Action Taken by Nursing 02/08/20 08:10 02/08/20 08:20 02/08/20 08:30 Temperature Temperature Source Pulse Rate 93 H 110 H 95 H Pulse Rate [Right Finger] Pulse Rate from SpO2 Sensor 105 H 104 H 85 Pulse Rhythm Respiratory Rate 18 20 18 Respiratory Effort / Characteristics Respiratory Depth Respiratory Pattern Blood Pressure 130/83 Blood Pressure [Right Arm] Blood Pressure Mean 91 Blood Pressure Mean [Right Arm] Blood Pressure Position [Right Arm] Pulse Oximetry 96 97 96 Oxygen Delivery Method Sepsis Recent Fever Within 48 Hours Sepsis New/Unexplained Change in Mental Status Sepsis Action Taken by Nursing Vital signs reviewed. General: Well-appearing 65-year-old male, in no significant distress. HEENT: No scleral icterus, PERRLA, neck supple. Atraumatic. Cardiovascular: Rapid and irregular, no extra sounds. Pulmonary: Clear to auscultation bilaterally, normal work of breathing. Abdomen: Soft, obese, nontender, nondistended, positive bowel sounds. Musculoskeletal: Atraumatic, minimal peripheral edema. Neurologic: Patient awake alert and oriented x 3 Skin: Warm, dry, no rash. Superficial spider varicosities noted to the distal lower extremities Course Administered Medications Apixaban (Apixaban 5 Mg Tablet) 5 mg PO BID MYNOR Stop: 03/09/20 11:14 Last Admin: 02/08/20 12:17 Dose: 5 mg Documented by: [id number] Atorvastatin Calcium (Atorvastatin 40 Mg Tab) 40 mg PO DAILY MYNOR Stop: 03/09/20 11:14 Last Admin: 02/08/20 12:17 Dose: 40 mg Documented by: [id number] Carvedilol (Carvedilol 6.25 Mg Tab) 9.375 mg PO BID MYNOR Stop: 03/09/20 11:14 Last Admin: 02/08/20 12:15 Dose: 9.375 mg Documented by: [id number] Furosemide (Furosemide 20 Mg Tab) 20 mg PO DAILY MYNOR Stop: 03/09/20 11:14 Last Admin: 02/08/20 12:17 Dose: Not Given Documented by: [id number] Losartan Potassium (Losartan Potassium 50 Mg Tab) 50 mg PO DAILY MYNOR Stop: 03/09/20 11:14 Last Admin: 02/08/20 12:16 Dose: 50 mg Documented by: [id number] Miscellaneous (Canagliflozin [Invokana] 300 Mg: Order Awaiting Action) 1 ea N/A QS MYNOR Stop: 03/09/20 11:59 Last Admin: 02/08/20 12:18 Dose: Not Given Documented by: [id number] Spironolactone (Spironolactone 25 Mg Tab) 25 mg PO DAILY MYNOR Stop: 03/09/20 11:14 Last Admin: 02/08/20 12:16 Dose: 25 mg Documented by: [id number] Discontinued Medications Diltiazem HCl (Diltiazem Hcl 5 Mg/Ml 5 Ml Vial) 10 mg IV NOW STA Stop: 02/08/20 07:48 Last Admin: 02/08/20 08:02 Dose: 10 mg Documented by: [id number] Cosigned by: [id number] Furosemide (Furosemide 40 Mg/4 Ml Vial) 40 mg IV NOW STA Stop: 02/08/20 08:37 Last Admin: 02/08/20 08:55 Dose: 40 mg Documented by: [id number] Metoprolol Tartrate (Metoprolol Tartrate 1 Mg/Ml Vial) 5 mg IV NOW STA Stop: 02/08/20 06:36 Last Admin: 02/08/20 06:44 Dose: 5 mg Documented by: [id number] Metoprolol Tartrate (Metoprolol Tartrate 1 Mg/Ml Vial) 5 mg IV NOW STA Stop: 02/08/20 07:28 Last Admin: 02/08/20 07:31 Dose: 5 mg Documented by: [id number] Perflutren Lipid Microsphere (Perflutren Lipid Microsphere (Definity)) 2 ml IV ONCE ONE Stop: 02/08/20 11:45 Last Admin: 02/08/20 11:45 Dose: 2 ml Documented by: [id number] Critical Care Time Critical Care Time: Yes Total Critical Care Time: 40 I have personally spent greater than 40 minutes of critical care time in the direct management of this patient. This includes bedside care, interpretation of diagnostic studies, and testing, discussion with consultants, patient, and family members, and other required patient management activities. This 40 minutes is in excess of all separately billable procedures. Medical Decision Making Differential Diagnosis DDx: Dysrhythmia, reactive airway disease, pneumonia, pneumothorax, COPD, CHF, infections, cardiac ischemia, pulmonary embolism, musculoskeletal, gastrointestinal, as well as other pathologies. Medical Records Attestation: I reviewed the patient's medical records. Home Medications Current Medication List: was personally reviewed by me Laboratory Data Attestation: I reviewed the patient's lab results. Result diagrams: 02/08/20 06:37 02/08/20 06:37 Lab Results 02/08/20 02/08/20 02/08/20 Range/Units 06:37 06:37 06:37 WBC 13.94 H (4.8-10.8) K/uL RBC 5.05 (4.7-6.1) M/uL Hgb 13.3 L (14.0-18.0) g/dL Hct 41.1 L (42-52) % MCV 81.4 (80-100) fL MCH 26.3 (25-34) pg MCHC 32.4 (32-36) g/dL RDW Std Deviation 42.3 (36.4-46.3) fL RDW Coeff of Josey 14.3 (11.5-14.5) % Plt Count 274 (130-400) K/uL MPV 10.5 H (7.4-10.4) fL Immature Gran % (Auto) 0.4 % Neut % (Auto) 68.7 % Lymph % (Auto) 20.7 % Kleberg % (Auto) 8.1 % Eos % (Auto) 1.9 % Baso % (Auto) 0.2 % Neut # (Auto) 9.59 H (1.4-6.5) K/uL Lymph # (Auto) 2.88 (1.2-3.4) K/uL Kleberg # (Auto) 1.13 H (0.11-0.59) K/uL Eos # (Auto) 0.26 (0-0.5) K/uL Baso # (Auto) 0.03 (0-0.2) K/uL Immature Gran # (Auto) 0.05 H (0.00-0.02) K/uL APTT 29.9 (21.0-31.0) Seconds PTT Ratio 1.1 Sodium 137 (136-145) mmol/L Potassium 4.3 (3.5-5.1) mmol/L Chloride 105 (98-107) mmol/L Carbon Dioxide 26 (21-32) mmol/L Anion Gap 6.0 (3-11) BUN 20 H (7-18) mg/dl Creatinine 1.47 H (0.6-1.4) mg/dl Est Cr Clr Drug Dosing 64.8 ml/min Est GFR ( Amer) 56.4 Est GFR (Non-Af Amer) 48.7 BUN/Creatinine Ratio 13.6 (10-20) Glucose 144 H (70-99) mg/dl Calcium 9.1 (8.5-10.1) mg/dl Phosphorus 3.4 (2.5-4.9) mg/dl Magnesium 2.2 (1.8-2.4) mg/dl Total Bilirubin 1.0 (0.2-1) mg/dl AST 15 (15-37) U/L ALT 28 (12-78) U/L Alkaline Phosphatase 73 (45-117) U/L NT-Pro-B Natriuret Pep (0-900) pg/ml Total Protein 8.0 (6.4-8.2) gm/dl Albumin 3.9 (3.4-5.0) gm/dl Globulin 4.1 H (2.5-4.0) gm/dl Albumin/Globulin Ratio 1.0 (0.9-2) TSH 1.500 (0.300-4.500) uIu/ml 02/08/20 Range/Units 06:37 WBC (4.8-10.8) K/uL RBC (4.7-6.1) M/uL Hgb (14.0-18.0) g/dL Hct (42-52) % MCV (80-100) fL MCH (25-34) pg MCHC (32-36) g/dL RDW Std Deviation (36.4-46.3) fL RDW Coeff of Josey (11.5-14.5) % Plt Count (130-400) K/uL MPV (7.4-10.4) fL Immature Gran % (Auto) % Neut % (Auto) % Lymph % (Auto) % Kleberg % (Auto) % Eos % (Auto) % Baso % (Auto) % Neut # (Auto) (1.4-6.5) K/uL Lymph # (Auto) (1.2-3.4) K/uL Kleberg # (Auto) (0.11-0.59) K/uL Eos # (Auto) (0-0.5) K/uL Baso # (Auto) (0-0.2) K/uL Immature Gran # (Auto) (0.00-0.02) K/uL APTT (21.0-31.0) Seconds PTT Ratio Sodium (136-145) mmol/L Potassium (3.5-5.1) mmol/L Chloride (98-107) mmol/L Carbon Dioxide (21-32) mmol/L Anion Gap (3-11) BUN (7-18) mg/dl Creatinine (0.6-1.4) mg/dl Est Cr Clr Drug Dosing ml/min Est GFR ( Amer) Est GFR (Non-Af Amer) BUN/Creatinine Ratio (10-20) Glucose (70-99) mg/dl Calcium (8.5-10.1) mg/dl Phosphorus (2.5-4.9) mg/dl Magnesium (1.8-2.4) mg/dl Total Bilirubin (0.2-1) mg/dl AST (15-37) U/L ALT (12-78) U/L Alkaline Phosphatase (45-117) U/L NT-Pro-B Natriuret Pep 3037 H (0-900) pg/ml Total Protein (6.4-8.2) gm/dl Albumin (3.4-5.0) gm/dl Globulin (2.5-4.0) gm/dl Albumin/Globulin Ratio (0.9-2) TSH (0.300-4.500) uIu/ml Imaging Data Radiologist's Impression: XR chest 1V portable CLINICAL HISTORY: atrial fib COMPARISON STUDY: Chest radiograph May 05, 2015. FINDINGS: Lung volumes are normal. There is moderate cardiomegaly. No pneumothorax is noted. There are suspected trace bilateral pleural effusions. Interstitial thickening favors mild pulmonary edema. There are Cecy B lines. Cardiomegaly is unchanged. IMPRESSION: 1. Interstitial thickening suggestive of mild pulmonary edema. 2. Suspected trace bilateral pleural effusions. 3. Cardiomegaly. ACT 112: Negative or not required by law. Electronically signed by: Bird Chatman M.D. 02/08/2020 7:51 AM Dictated: 02/08/[id number] Transcribed: 10/25/20 0750 ECG Data Attestation: I personally reviewed and interpreted this ECG as follows: Indication: + SOB/dyspnea Rate (beats per minute): 117 Rhythm: + atrial fibrillation ECG Intervals/blocks: + Left bundle branch block and + Prolonged QT (499) ECG ST segments: + Nonspecific ST abnormalities ECG Findings: + PVCs; no PACs Comparison ECG Date: from (05/01/2015) Change: the following changes noted (Atrial fibrillation with RVR has replaced sinus rhythm with frequent ectopy. Left bundle branch block is persistent) Blood Pressure Blood Pressure Findings: Normal blood pressure Blood Pressure Disposition: did not require urgent referral MDM Narrative This patient was evaluated and appeared to be in no significant distress. IV access was obtained and laboratory work was drawn. An order for cardiac monitoring was placed and the patient is noted to be in a rapid atrial fibrillation. Patient was given 2 doses of 5 mg IV metoprolol with moderate improvement in his heart rate. Laboratory work reveals an elevation of the WBC to 14,000, INR of 1.1 although the patient is on Eliquis and a creatinine of 1.47. Chest x-ray reveals some mild pulmonary vascular congestion. Patient was given 40 mg of IV Lasix. He was then given 10 mg of IV Cardizem with successful rate control. Case was discussed with Dr. Bolden of cardiology who requested hospitalist consultation for admission and likely cardioversion tomorrow. Patient was made aware of the plan and agrees. The [facility] hospitalist service was consulted for further management. Impression & Plan Atrial fibrillation with RVR, LBBB (left bundle branch block), Chronic anticoag ulation Discharge Plan Visit Data Chief Complaint: Tachycardia Stated Complaint: SOB,A-FIB ED Provider: Yin Guerra Discharge Problem: Atrial fibrillation with RVR, LBBB (left bundle branch block), Chronic antico agulation Patient Disposition: Admitted As Inpatient Discharge Instructions Interventions: ED Discharge Assessment Last Done: 02/08/20 10:14
[2020-02-08] MEDS: INVOKANA 300 MG PO SCH (16:06)
[2020-02-08] MEDS: metFORMIN HCL ER 500 MG TABCR PO SCH (16:53)
--- NOTE | 2020-02-09 06:10 | Electrocardiogram Report ---
Test Reason : Blood Pressure : / mmHG Vent. Rate : 117 BPM Atrial Rate : 117 BPM P-R Int : 000 ms QRS Dur : 134 ms QT Int : 358 ms P-R-T Axes : 000 017 102 degrees QTc Int : 499 ms Atrial fibrillation with rapid ventricular response with premature ventricular or aberrantly conducte d complexes Left bundle branch block Abnormal ECG When compared with ECG of 01-MAY-2015 06:31, Atrial fibrillation has replaced Sinus rhythm Vent. rate has increased BY 45 BPM T wave inversion less evident in Anterolateral leads Confirmed by Compa Maldonado ([id number]) on 02/09/2020 6:10:35 AM Referred By: REFERRED SELF Confirmed By:Compa Maldonado
[2020-02-09] MEDS ORDERED: LIDOCAINE HCL 2% MPF (LOCAL) 5 ML VIAL INFIL ONE (07:18)
[2020-02-09] MEDS ORDERED: PROPOFOL IV EMULSION 10 MG/ML 20 ML VIAL IV ONE (07:18)
--- NOTE | 2020-02-09 07:37 | Cardioversion ---
Date of Service February 09, 2020 Electrical Cardioversion Rpt Electrical Cardioversion Report Patient was seen and examined. Procedure discussed in detail, informed consent obtained. Patient was sedated via anesthesia consult with continuous O2, BP, HR and CO2 monitoring. Single biphasic synchronized 200 J cardioversion performed with successful conversion to sinus rhythm. Patient aroused post procedure having tolerated well. EKG Sinus rhythm with occasional PVCs , LBBB rate 60 bpm QTC 472 Impression/Plan: Successful cardioversion Continue medical therapy
[2020-02-09] MEDS: FUROSEMIDE 20 MG TAB PO SCH (08:22)
[2020-02-09] MEDS: APIXABAN 5 MG TABLET PO SCH (08:22)
[2020-02-09] MEDS: LOSARTAN POTASSIUM 50 MG TAB PO SCH (08:22)
[2020-02-09] MEDS: ATORVASTATIN 40 MG TAB PO SCH (08:22)
[2020-02-09] MEDS: INVOKANA 300 MG PO SCH (08:23)
[2020-02-09] MEDS: metFORMIN HCL ER 500 MG TABCR PO SCH (08:23)
[2020-02-09] MEDS: SPIRONOLACTONE 25 MG TAB PO SCH (08:23)
[2020-02-09] MEDS: carvediloL 6.25 MG TAB PO SCH (08:24)
--- NOTE | 2020-02-09 08:24 | Anesthesiology Progress Note ---
Date of Service February 09, 2020 Anesthesia Post Procedure Vital Signs Vital Signs: Temp Pulse Pulse Pulse Pulse Resp BP 02/09/20 08:00 36.7 C 56 L 16 02/09/20 07:50 60 16 02/09/20 07:35 65 16 02/09/20 07:25 108 H 02/09/20 07:19 123 H 18 02/09/20 04:00 36.7 C 112 H 18 02/08/20 23:42 36.7 C 100 H 18 02/08/20 22:46 113 H 02/08/20 19:35 36.5 C 99 H 16 02/08/20 16:00 94 H 02/08/20 15:31 36.7 C 113 H 22 02/08/20 11:45 36.3 C L 109 H 18 02/08/20 10:25 36.6 C 112 H 110 H 18 02/08/20 10:00 110 H 19 97/84 L 02/08/20 09:50 89 17 02/08/20 09:40 75 15 02/08/20 09:34 104 H 20 126/79 02/08/20 09:33 120 H 18 02/08/20 09:20 98 H 19 02/08/20 09:10 94 H 18 02/08/20 09:00 117 H 22 120/85 02/08/20 08:50 99 H 17 02/08/20 08:40 95 H 15 02/08/20 08:30 95 H 18 130/83 BP BP Pulse Ox 02/09/20 08:00 109/73 96 02/09/20 07:50 103/69 96 02/09/20 07:35 104/67 96 02/09/20 07:25 02/09/20 07:19 109/89 96 02/09/20 04:00 144/95 H 92 02/08/20 23:42 116/86 97 02/08/20 22:46 02/08/20 19:35 125/80 97 02/08/20 16:00 02/08/20 15:31 107/74 97 02/08/20 11:45 135/85 99 02/08/20 10:25 121/84 99 02/08/20 10:00 97 02/08/20 09:50 98 02/08/20 09:40 98 02/08/20 09:34 98 10/25/20 09:33 97 02/08/20 09:20 96 02/08/20 09:10 96 02/08/20 09:00 97 02/08/20 08:50 96 02/08/20 08:40 97 02/08/20 08:30 96 Transfer of Care Handoff Completed per policy Notes Mental Status: alert / awake / arousable and participated in evaluation Patient Amnestic to Procedure: Yes Nausea / Vomiting: adequately controlled Pain: adequately controlled Airway Patency, RR, SpO2: stable & adequate BP & HR: stable & adequate Hydration State: stable & adequate Anesthetic Complications: no major complications apparent
--- NOTE | 2020-02-09 08:29 | Cardiology Progress Note ---
Date of Service February 09, 2020 Assessment & Plan (1) Atrial fibrillation with RVR: Patient is a 65-year-old male with past history of tachycardia mediated cardiomyopathy, chronic left bundle branch block presents now with episodic dyspnea. He is recently been observed of lapsed back into atrial fibrillation and has anticipated synchronized electrical cardioversion. Exam and history reflects mildmoderate heart failure due to elevation in heart rates. Plan: Patient underwent synchronized electrical cardioversion today with successful return to sinus rhythm. (2) LBBB (left bundle branch block): (3) Tachycardia induced cardiomyopathy: Echocardiogram as expected demonstrated decline in ejection fraction EF 25 to 30% with diffuse LV dysfunction (4) Congestive heart failure due to cardiomyopathy: Agree with IV furosemide administered today (5) CKD (chronic kidney disease) stage 3, GFR 30-59 ml/min: (6) Hypertension: (7) Diabetes: Admission and Anticipated Discharge Date Admission Date: February 08, 2020 Subjective Patient seen and examined, chart, medications, telemetry reviewed. Did not sleep well last night with mild dyspnea but no acute respiratory distress no profound pauses or arrhythmias. Good diuresis overnight Patient underwent synchronized electrical cardioversion this morning with successful conversion to sinus rhythm with good tolerance for procedure Physical Exam Constitutional: WD/WN, vitals as above Eyes: PERRL, conjunctivae normal, anicteric sclerae ENMT: external ear and nose normal, oropharynx normal Neck: trachea midline, no thyromegaly Respiratory: normal respiratory effort, lungs clear to auscultation Cardiovascular: Rate/Rhythm: regular rate and regular rhythm Heart Sounds: normal S1 and normal S2; no gallop and no murmur Palpation: normal PMI Vessels: normal carotid upstroke and radial pulses present; no JVD and no carotid bruit Extremities: + edema (1-2+) Gastrointestinal (Abdomen): normal bowel sounds, soft, nontender, no hepatosplenomegaly Musculoskeletal: no cyanosis or clubbing, extremities motor strength 5/5 Skin: no rashes, warm and dry Neurologic: PERRL, EOMI, accommodation nl, no face palsy, no dysarthria Psychiatric: A+Ox3, euthymic affect Results & Data ([facility]) Vital Signs (Past 12 Hours) Vital Signs Temp Pulse Pulse Resp BP BP Pulse Ox 02/09/20 08:00 36.7 C 56 L 16 109/73 96 02/09/20 07:50 60 16 103/69 96 10/26/20 07:35 65 16 104/67 96 02/09/20 07:25 108 H 02/09/20 07:19 123 H 18 109/89 96 02/09/20 04:00 36.7 C 112 H 18 144/95 H 92 02/08/20 23:42 36.7 C 100 H 18 116/86 97 02/08/20 22:46 113 H
[2020-02-09 09:15] LABS: Hematocrit (blood only) 37.5 % (42-52); Hemoglobin 12.3 g/dL (14.0-18.0); Mean Corpuscular Hemoglobin 26.2 pg (25-34); Mean Corpuscular Hgb Conc 32.8 g/dL (32-36); Mean Corpuscular Volume 79.8 fL (80-100); Mean Platelet Volume 10.2 fL (7.4-10.4); Platelet Count 234 K/uL (130-400); White Blood Count 11.74 K/uL (4.8-10.8)
--- NOTE | 2020-02-09 09:44 | Hospitalist Progress Note ---
Date of Service February 09, 2020 Assessment & Plan (1) Atrial fibrillation with RVR: Tachycardia induced cardiomyopathy systolic CHF exacerbation History of A. fib with RVR, status post cardioversion in 2016 Recurrence of A. fib with RVR, and was planned for cardioversion early next week, however presented with increased shortness of breath EKG in ED, shows A. fib with RVR, and chronic LBBB, chest x-ray notable for increased interstitial markings, proBNP around 3000 Potassium normal at 4.3, Magnesium normal at 2.2, will keep K>4, Mg>2 TSH normal 1.5 History of cardiomyopathy, in 2016, then return to normal LV function, however now presents with CHF exacerbation likely secondary to increased heart rate Echocardiogram obtained, LV is normal in size. Normal LV wall thickness. Septal motion is consistent with conduction abnormality. There is moderate global hypokinesis of the left ventricle. EF 25 to 30%. Mitral valve leaflets are mildly thickened. There is moderate mitral regurg. Pt is now s/p successful cardioversion, February 08, converted to normal sinus rhythm, tolerated procedure well Patient received 40 mg IV furosemide in the ED Dr. Bolden, cardiology, contacted by the ED provider, appreciate their input Cont. home medications, Coreg, losartan, spironolactone, increase furosemide to 40 mg daily on discharge Follow-up with cardiology in a week (2) Hypertension: Continue home Coreg, losartan, spironolactone (3) Hyperlipidemia: Continue home Lipitor (4) CKD (chronic kidney disease) stage 3, GFR 30-59 ml/min: Continue monitor renal function, currently at baseline Try to avoid NSAIDs, nephrotoxic agents (5) Diabetes: At home, patient is on oral regimen Metformin and Invokana As it was expected that patient would be likely discharged after cardioversion, continued home medications DVT ppx: On Eliquis Full code Disposition: Plan to return home after cardioversion tomorrow Admission and Anticipated Discharge Date Admission Date: February 08, 2020 Subjective Patient underwent cardioversion earlier this morning, successfully converted to sinus rhythm, feels well. Currently no chest pain, no shortness of breath, lower extremity edema improved, overall patient feels well not lightheaded or dizzy, and inquires about going home. Review of Systems Review of Systems: All systems reviewed & are unremarkable except as noted in HPI & below Constitutional: no fever and no chills Respiratory: no cough and no dyspnea Cardiovascular: no chest pain and no palpitations Gastrointestinal: no abdominal pain, no nausea and no vomiting Physical Exam Physical Exam: Constitutional: Elderly male, lying in bed, in no acute distress, WD/WN, vitals as above Eyes: PERRL, EOMI, conjunctivae normal, anicteric sclerae ENMT: external ear and nose normal, oropharynx normal Neck: trachea midline, no thyromegaly Respiratory: normal respiratory effort, lungs clear to auscultation Cardiovascular: Rate/Rhythm: RRR Heart Sounds: normal S1 and normal S2; no gallop and no murmur, no JVD and no carotid bruit Extremities: + trace LE edema b/l Gastrointestinal (Abdomen): normal bowel sounds, soft, nontender, mildly distended Musculoskeletal: no cyanosis or clubbing, extremities motor strength 5/5, moves extremities spontaneously Skin: no rashes, warm and dry Neurologic: PERRL, EOMI, no face palsy, no dysarthria, moves extremities spontaneously Psychiatric: A+Ox3, euthymic affect Results & Data Results & Data ([facility]) Vital Signs (Past 12 Hours) Vital Signs Temp Pulse Pulse Resp BP BP Pulse Ox 02/09/20 08:40 67 14 105/71 94 02/09/20 08:10 71 14 125/74 98 02/09/20 08:03 67 02/09/20 08:00 36.7 C 56 L 16 109/73 96 02/09/20 07:50 60 16 103/69 96 02/09/20 07:35 65 16 104/67 96 02/09/20 07:25 108 H 02/09/20 07:19 123 H 18 109/89 96 02/09/20 04:00 36.7 C 112 H 18 144/95 H 92 02/08/20 23:42 36.7 C 100 H 18 116/86 97 02/08/20 22:46 113 H Laboratory Results 02/09/20 02/09/20 02/09/20 Range/Units 11:40 08:56 08:56 WBC 11.74 H (4.8-10.8) K/uL RBC 4.70 (4.7-6.1) M/uL Hgb 12.3 L (14.0-18.0) g/dL Hct 37.5 L (42-52) % MCV 79.8 L (80-100) fL MCH 26.2 (25-34) pg MCHC 32.8 (32-36) g/dL RDW Std Deviation 40.0 (36.4-46.3) fL RDW Coeff of Josey 14.0 (11.5-14.5) % Plt Count 234 (130-400) K/uL MPV 10.2 (7.4-10.4) fL Sodium 136 (136-145) mmol/L Potassium 4.4 (3.5-5.1) mmol/L Chloride 103 (98-107) mmol/L Carbon Dioxide 26 (21-32) mmol/L Anion Gap 7.0 (3-11) BUN 23 H (7-18) mg/dl Creatinine 1.48 H (0.6-1.4) mg/dl Est Cr Clr Drug Dosing 63.7 ml/min Est GFR ( Amer) 55.9 Est GFR (Non-Af Amer) 48.3 BUN/Creatinine Ratio 15.3 (10-20) Glucose 151 H (70-99) mg/dl POC Glucose 145 H (70-99) mg/dl Calcium 8.7 (8.5-10.1) mg/dl Magnesium 2.3 (1.8-2.4) mg/dl 02/09/20 02/08/20 Range/Units 08:18 20:41 WBC (4.8-10.8) K/uL RBC (4.7-6.1) M/uL Hgb (14.0-18.0) g/dL Hct (42-52) % MCV (80-100) fL MCH (25-34) pg MCHC (32-36) g/dL RDW Std Deviation (36.4-46.3) fL RDW Coeff of Josey (11.5-14.5) % Plt Count (130-400) K/uL MPV (7.4-10.4) fL Sodium (136-145) mmol/L Potassium (3.5-5.1) mmol/L Chloride (98-107) mmol/L Carbon Dioxide (21-32) mmol/L Anion Gap (3-11) BUN (7-18) mg/dl Creatinine (0.6-1.4) mg/dl Est Cr Clr Drug Dosing ml/min Est GFR ( Amer) Est GFR (Non-Af Amer) BUN/Creatinine Ratio (10-20) Glucose (70-99) mg/dl POC Glucose 119 H 139 H (70-99) mg/dl Calcium (8.5-10.1) mg/dl Magnesium (1.8-2.4) mg/dl Medications Administered Current Inpatient Medications Acetaminophen (Acetaminophen 325 Mg Tab) 650 mg PO Q4H PRN PRN Reason: Pain or Fever Stop: 03/09/20 08:37 Apixaban (Apixaban 5 Mg Tablet) 5 mg PO BID MYNOR Stop: 03/09/20 11:14 Last Admin: 02/09/20 08:22 Dose: 5 mg Documented by: Atorvastatin Calcium (Atorvastatin 40 Mg Tab) 40 mg PO DAILY MYNOR Stop: 03/09/20 11:14 Last Admin: 02/09/20 08:22 Dose: 40 mg Documented by: Carvedilol (Carvedilol 6.25 Mg Tab) 9.375 mg PO BID MYNOR Stop: 03/09/20 11:14 Last Admin: 02/09/20 08:24 Dose: 9.375 mg Documented by: Furosemide (Furosemide 20 Mg Tab) 20 mg PO DAILY MYNOR Stop: 03/09/20 11:14 Last Admin: 02/09/20 08:22 Dose: 20 mg Documented by: Losartan Potassium (Losartan Potassium 50 Mg Tab) 50 mg PO DAILY MYNOR Stop: 03/09/20 11:14 Last Admin: 02/09/20 08:22 Dose: 50 mg Documented by: Metformin HCl (Metformin Hcl Er 500 Mg Tabcr) 1,000 mg PO BIDM MYNOR Stop: 03/09/20 11:50 Last Admin: 02/09/20 08:23 Dose: 1,000 mg Documented by: Invokana 300 Mg ~ Non-Formulary Patient's Own Med 1 ea PO DAILY MYNOR Stop: 03/09/20 14:59 Last Admin: 02/09/20 08:23 Dose: 1 tab Documented by: Polyethylene Glycol (Polyethylene (Miralax) 17 Gm Pack) 17 gm PO DAILY PRN PRN Reason: Constipation Stop: 03/09/20 08:37 Spironolactone (Spironolactone 25 Mg Tab) 25 mg PO DAILY MYNOR Stop: 03/09/20 11:14 Last Admin: 02/09/20 08:23 Dose: 25 mg Documented by:
[2020-02-09 09:57] LABS: BUN Creatinine Ratio 15.3 (10-20); Calcium 8.7 mg/dl (8.5-10.1); Creatinine Clr Calc Pharmacy 63.7 ml/min; Est GFR (African American) 55.9; Est GFR (Non-African American) 48.3; Magnesium 2.3 mg/dl (1.8-2.4); Potassium 4.4 mmol/L (3.5-5.1)
--- NOTE | 2020-02-09 14:14 | Communication Note ---
Date of Service: February 09, 2020 Patient seen post synchronized electrical cardioversion. Tolerated procedure well and maintaining sinus rhythm. Note chest pains or discomfort. Respiratory status feels substantially improved per patient. Echocardiogram as noted demonstrates moderate diffuse LV dysfunction consistent with history of tachycardia mediated cardiomyopathy. Plan: The patient to be discharged home after ambulation. We will continue furosemide at 40 mg/day Follow-up to be scheduled with [facility] cardiology in 1 week's time (appointment being arranged)
--- NOTE | 2020-02-09 15:55 | Discharge Summary ---
Date of Service February 09, 2020 Admission HPI Per Admitting Provider Patient is a 65-year-old male, with history of A. fib, hx of nonischemic cardiomyopathy in 2016, with return to normal LV function, chronic left bundle branch block, hypertension, hyperlipidemia, type of diabetes mellitus, hyperferritinenemia, who presents with shortness of breath. Patient has history of A. fib with RVR, underwent cardioversion in 2016. Since then he has been doing well until about 3 weeks ago when he again became dizzy, and short of breath. Patient states he never experienced palpitations. He follows with Dr. Bolden, from cardiology service, for his atrial fibrillation and as a matter of fact he was scheduled for cardioversion early next week. However over the weekend patient developed increased shortness of breath and therefore now presented to the emergency room. Patient was also recently started on Eliquis by Dr. Bolden. Patient denies any fevers or chills. Denies any sick contacts. Had Covid testing done on February 05, and was negative. Denies any abdominal pain, nausea or vomiting. Says that he has good appetite, however he lost significant amount of weight, since his intermediate in June 2019. Patient states that he has been more active in his yard, and unfortunately his work was very sedentary. He did notice though that in the past couple of days he accumulated more fluid in his abdominal girth and lower extremities. Patient's is at the bedside, and confirms that his abdomen is now little bigger than his normal after he lost weight. Also she feels that his lower extremities are slightly more swollen. Chest x-ray in emergency room showed some interstitial pulmonary edema. In emergency room, patient was given IV Lasix 40 mg, metoprolol IV and diltiazem IV. Dr. Bolden was contacted by ED provider. Plan for cardioversion tomorrow (02/09/2020). Admission Exam Per Admitting Provider Constitutional: Elderly male, lying in bed, in no acute distress, WD/WN, vitals as above Eyes: PERRL, EOMI, conjunctivae normal, anicteric sclerae ENMT: external ear and nose normal, oropharynx normal Neck: trachea midline, no thyromegaly Respiratory: normal respiratory effort, lungs clear to auscultation Cardiovascular: Rate/Rhythm: + tachycardic and + irregularly irregular Heart Sounds: normal S1 and normal S2; no gallop and no murmur, no JVD and no carotid bruit Extremities: + edema (1-2+) Gastrointestinal (Abdomen): normal bowel sounds, soft, nontender, mildly distended Musculoskeletal: no cyanosis or clubbing, extremities motor strength 5/5, moves extremities spontaneously Skin: no rashes, warm and dry Neurologic: PERRL, EOMI, no face palsy, no dysarthria, moves extremities spontaneously Psychiatric: A+Ox3, euthymic affect Principal Diagnosis A. fib with RVR now status post cardioversion Tachycardia mediated cardiomyopathy Mild to moderate heart failure due to elevated heart rate Discharge Exam Constitutional: Elderly male, lying in bed, in no acute distress, WD/WN, vitals as above Eyes: PERRL, EOMI, conjunctivae normal, anicteric sclerae ENMT: external ear and nose normal, oropharynx normal Neck: trachea midline, no thyromegaly Respiratory: normal respiratory effort, lungs clear to auscultation Cardiovascular: Rate/Rhythm: RRR Heart Sounds: normal S1 and normal S2; no gallop and no murmur, no JVD and no carotid bruit Extremities: + trace LE edema b/l Gastrointestinal (Abdomen): normal bowel sounds, soft, nontender, mildly distended Musculoskeletal: no cyanosis or clubbing, extremities motor strength 5/5, moves extremities spontaneously Skin: no rashes, warm and dry Neurologic: PERRL, EOMI, no face palsy, no dysarthria, moves extremities spontaneously Psychiatric: A+Ox3, euthymic affect Discharge Data Allergies Allergy/AdvReac Type Severity Reaction Status Date / Time cephalexin Allergy Intermediate hives Verified 02/08/20 06:54 Consultations 02/08/20 08:38 Consult Cardiology Routine 02/08/20 08:43 ED Decision to Admit Stat 02/09/20 07:30 Consult Anesthesiology Routine Procedures Performed Operation Date: 02/09/20 07:30 Actual Procedures p Cardioversion - Edgar Bolden MD Hospital Course (1) Atrial fibrillation with RVR: Tachycardia induced cardiomyopathy Systolic CHF exacerbation History of A. fib with RVR, status post cardioversion in 2016 Recurrence of A. fib with RVR, and was planned for cardioversion early next week, however presented with increased shortness of breath EKG in ED, shows A. fib with RVR, and chronic LBBB, chest x-ray notable for increased interstitial markings, proBNP around 3000 Potassium normal at 4.3, Magnesium normal at 2.2, will keep K>4, Mg>2 TSH normal 1.5 History of cardiomyopathy, in 2016, then return to normal LV function, however now presents with CHF exacerbation likely secondary to increased heart rate Echocardiogram obtained, LV is normal in size. Normal LV wall thickness. Septal motion is consistent with conduction abnormality. There is moderate global hypokinesis of the left ventricle. EF 25 to 30%. Mitral valve leaflets are mildly thickened. There is moderate mitral regurg. Pt is now s/p successful cardioversion, February 08, converted to normal sinus rhythm, tolerated procedure well Patient received 40 mg IV furosemide in the ED Dr. Bolden, cardiology, contacted by the ED provider, appreciate their input Cont. home medications, Coreg, losartan, spironolactone, increase furosemide to 40 mg daily on discharge Follow-up with cardiology in a week (2) Hypertension: Continue home Coreg, losartan, spironolactone (3) Hyperlipidemia: Continue home Lipitor (4) CKD (chronic kidney disease) stage 3, GFR 30-59 ml/min: Continue monitor renal function, currently at baseline Try to avoid NSAIDs, nephrotoxic agents (5) Diabetes: At home, patient is on oral regimen Metformin and Invokana As it was expected that patient would be likely discharged after cardioversion, continued home medications DVT ppx: On Eliquis Full code Disposition: Plan to return home after cardioversion tomorrow Total Time Total Time Spent Total Time Spent (In Minutes): 40 Total Time Includes: Examination of the Patient, Discharge Planning, Medication Reconciliation and Communication With Other Providers Discharge Plan Discharge Items Patient Disposition: Home - Self-Care Reason For Visit: AFIB RVR Discharge Diagnosis: A. fib with RVR now status post cardioversion Tachycardia mediated cardiomyopathy Mild to moderate heart failure due to elevated heart rate Activity: Per Instructions section Non-emergency contact: Primary Care Provider and Complaint Adjuster Call non-emergency contact if: you have any medication questions and your symptoms worsen Follow-up/Referrals: Ivan Justin DO [Primary Care Provider] - (Date & Time 02/13/2020 11:00 AM Provider Ivan Justin DO [facility] ) Diet: Carb Consistent or DM2, Heart Healthy and Low Sodium (2gm) Fluids: 1800ml (7 cups) Addtl Attending Provider Instructions: Follow-up with primary care provider, appointment was scheduled for you on February 12. You will also need to follow-up with complaint coordinator, Dr. Bolden. You will be contacted about the appointment. Increase your furosemide/Lasix dose to 40 mg daily. Weigh yourself daily and record your weight. Provide your complaint coordinator and primary care doctor with your weights. Please read detailed instructions below. Addtl Cost Accounting Clerk Provider Instructions: Call your Primary Care doctor if any of the following symptoms or problems start or get worse: * Shortness of breath or difficulty breathing * Wake up at night short of breath * Chest pain * Cough * Swelling of your hands, feet, or legs * More fatigued or tired with your normal activity * Palpitations - sudden fast heart beats WEIGHT * Weigh yourself every morning after using the bathroom. * Use the same scale. * Wear the same amount of clothing. * Write your weight down on a chart. * Call your Primary Care doctor if you gain more than 2-3 pounds in 1-2 days. MEDICATIONS * Use this discharge instruction sheet for medication instructions. * Take your medications at the time your doctor ordered. * Do not skip a dose of your medicines. * If you miss a dose of medicine, take it as soon as possible, but DO NOT DOUBLE A DOSE. * Read your medicine information when you get home. * Know all of the side effects of your medicine. If in doubt, ask your pharmacist * Call your Primary Care doctor's office if you have any side effects. * Be sure all of your doctors know what medicine and herbs you take (including cold, flu, and herbal medicine). Take the following with you to your follow-up doctor appointments: * Weight Chart * Medication List * List of questions Do not drink excessive alcohol, beer or wine. Pending Studies at Discharge: No Stand-Alone Forms: [employer], Smoking Cessation Medications and DC Order Prescriptions: Continued atorvastatin 40 mg Tablet 40 mg PO DAILY RF: 0 Eliquis 5 mg Tablet 5 mg PO BID RF: 0 potassium chloride 10 mEq Capsule, Extended Release 10 meq PO DAILY RF: 0 carvedilol 6.25 mg Tablet 9.375 mg PO BID RF: 0 spironolactone 25 mg Tablet 25 mg PO DAILY RF: 0 losartan 100 mg Tablet 50 mg PO DAILY RF: 0 metformin 500 mg Tablet Extended Release 24 Hr 1,000 mg PO BIDM RF: 0 Invokana 300 mg Tablet 300 mg PO DAILY RF: 0 Changed furosemide [Lasix] 40 mg Tablet 40 mg PO DAILY Qty: 0 RF: 0 Discharge Orders: Discharge Order (Routine); Ordered 02/09/20 Ordered By: [place] Ryder/Other Patient Handouts: Carvedilol tablets, Furosemide tablets Admission Data Admit Date/Time: 02/08/20 08:38 Attending Provider: [place] M[place]inney Admit Provider: [place] Primary Care Provider: Ivan Justin Other Providers: Edgar Bolden ; Stevie Burnette ; Nikia Rojas ; Natalia Reid ; Yvonne Miranda ; Lennie Sandoval ; Jen Denton ; Britney Navarro ; Saúl Kelley ; Jalen Welsh ; Keven Huffman ; Gerber Burgess ; Ingrid Burgess ; Eber Mcguire ; Elen Goetz ; [place] ; Joe Ahumada ; Qamar Sharpe ; Baron Huitron ; Selin Hernandez ; Raymond Perez ; Columba Thompson ; Tanya Perez ; Oh Lopez ; Zuleima Pulliam ; Manjit Simpson ; Bryanna Garcia ; Diane Durbin ; Zuleima Lipscomb ; Jenni Yang ; Marcelo Castaneda ; Joyce Faria ; Yulia Mendiola ; Chantel Duncan ; Yin Moya ; Saúl Moya V ; Tate Zurita ; Yvonne Castillo ; Jm Stover ; Dylan De La Torre ; Carmen Sainz ; Gloria Reyes ; Saúl Colbert ; Rohit Hernandez ; Minh Wang ; Chantel Saenz ; Keven Mercer ; Loretta Leal ; Eladio Houser ; Juan aMnuel Huitron ; Pat Lewis ; Emmanuel Friedman ; Marilee Morgan ; eDshawn Hammond ; Khanh Hare ; Tanya Zendejas
--- NOTE | 2020-02-09 22:30 | Electrocardiogram Report ---
Test Reason : Blood Pressure : / mmHG Vent. Rate : 060 BPM Atrial Rate : 060 BPM P-R Int : 178 ms QRS Dur : 148 ms QT Int : 472 ms P-R-T Axes : 063 003 123 degrees QTc Int : 472 ms Sinus rhythm with occasional Premature ventricular complexes Left bundle branch block Abnormal ECG When compared with ECG of 08-FEB-2020 06:32, Sinus rhythm has replaced Atrial fibrillation Vent. rate has decreased BY 57 BPM Confirmed by Compa Maldonado ([id number]) on 02/09/2020 10:29:40 PM Referred By: REFERRED SELF Confirmed By:Compa Maldonado
== END 2020-02-09 16:49 | disposition home or self-care (01) | DRG 308 ==
LOC: ED 06:24 → 2S 08:38

== ENCOUNTER 2021-06-10 12:53 | Inpatient (IN) ==
[2021-06-10 13:19] LABS: Basophils # (auto) 0.03 K/uL (0-0.2); Basophils % (auto) 0.2 %; Eosinophils % (auto) 1.4 %; Hematocrit (blood only) 42.6 % (42-52); Hemoglobin 14.3 g/dL (14.0-18.0); Immature Granulocytes # (auto) 0.05 K/uL (0.00-0.02); Immature Granulocytes % (auto) 0.4 %; Lymphocytes # (auto) 1.83 K/uL (1.2-3.4); Mean Corpuscular Hemoglobin 27.2 pg (25-34); Mean Corpuscular Hgb Conc 33.6 g/dL (32-36); Mean Corpuscular Volume 81.1 fL (80-100); Mean Platelet Volume 10.1 fL (7.4-10.4); Monocytes # (auto) 1.37 K/uL (0.11-0.59); Monocytes % (auto) 9.8 %; Neutrophils # (auto) 10.56 K/uL (1.4-6.5); Neutrophils % (auto) 75.2 %; Platelet Count 226 K/uL (130-400); RDW Coefficient of Variation 14.7 % (11.5-14.5); RDW Standard Deviation 43.2 fL (36.4-46.3); Red Blood Count 5.25 M/uL (4.7-6.1); White Blood Count 14.04 K/uL (4.8-10.8)
[2021-06-10 13:30] LABS: INR 1.1 (0.9-1.1); Partial Thromboplastin Ratio 1.1; Partial Thromboplastin Time 29.7 Seconds (21.0-31.0); Prothrombin Time 11.2 Seconds (9.0-12.0)
--- NOTE | 2021-06-10 13:35 | Emergency Department Note ---
Impression & Plan Atrial fibrillation with RVR, LBBB (left bundle branch block), Chronic anticoagulation, Chest pain ED Provider Note NAME: ANALISA DIETZ AGE: 66 SEX: M : 1955 ARRIVES VIA: Walk-In INFORMANT: Patient, ED PROVIDER(S): Matias Valentin MD Chief Complaint: Chest pain HPI: Patient did present with concern for centralized aching chest pain approxi- 7 out of 10 which began around 7-8 o'clock this morning. Patient states he had gotten up drinking coffee and eating a piece of toast when he developed this discomfort. The patient denies any fevers or chills. Patient does have a known history of A. fib and does follow with Dr. Bolden. Patient is anticoagulated on Eliquis. Patient denies any prior history of DVT or PE, no recent surgeries, procedures, hospitalizations or prolonged car or plane travel. Patient states he is compliant with his medications and did take his morning medicines. Patient is vaccinated for COVID-19. Patient denies any tobacco use but does occasionally use alcohol. Patient states that his pain occurred at rest has been fairly constant. No diaphoresis nausea or vomiting. ROS: See HPI for pertinent positives and negatives. A total of 10 systems were reviewed and otherwise negative. Past medical history: See below Surgical history: See below Social history: See below Physical Exam: GENERAL: NAD, wearing a mask, non-toxic. EYE EXAM: Normal conjunctiva. PERRL, no anisocoria and EOM's grossly intact w/o pain. NECK: Supple, no nuchal rigidity, no adenopathy, non-tender. No signs of meningismus. LUNGS: Clear to auscultation. Normal chest wall mechanics. HEART: Tachycardic and irregularly irregular, no MRG. ABDOMEN: Abdomen soft, non-tender, normo-active bowel sounds, no masses, no rebound or guarding. BACK: No CVA TTP. SKIN: No rashes and no bruising. UPPER EXTREMITIES: Upper extremities are grossly normal. LOWER EXTREMITIES: Grossly normal, no edema. Negative Homans' sign bilaterally. NEURO EXAM: A&O x3, cranial nerves II-XII grossly intact, normal speech, moves all 4 extremities on command w/o issue. Differential diagnoses: Cardiac ischemia, aortic dissection, pulmonary embolism, pneumothorax, pneumonia, pericarditis, myocarditis, esophageal rupture, GERD, cholecystitis, pancreatitis, musculoskeletal, as well as other pathologies. Course: Patient was seen and evaluated the bedside. Full history physical exam was performed. EKG interpreted by me A. fib with RVR, rate of 110, left axis deviation, left bundle branch block pattern. A. fib is a change from his sinus rhythm last seen February 09, 2020 EKG Imaging Studies: See Below Cardiac monitoring: An order was placed for continuous cardiac monitoring. The monitor shows a rate of 122 with irregularly irregular rhythm. MDM: Patient was seen due to concern for chest pain. The patient is in A. fib and typically is in sinus. The patient is anticoagulated. No strokelike symptoms. The patient's EKG did show left bundle but no obvious sgarbossa criteria. The patient was given a full dose aspirin and was ordered Lopressor and fluids. I did speak to the on-call patternmaker plastics Dr. Gomez who recommended continuing to trend his enzymes and admit to medicine. Patient with white count 14 normal H&H and platelet count. Kidney function is unremarkable. Glucose is elevated to 60. Initial troponin negative with normal LFTs. Covid negative. Patient's chest x-ray shows stable cardiomegaly. I did speak with the on-call hospitalist Tasha Christina PA-C and the patient was admitted to the medicine service by Dr. Romero. Critical Care: I have personally spent 35 minutes of critical care time in direct management of this patient. This includes bedside care, interpretation of diagnostic studies, and testing, discussion with consultants, patient, and family members, and other require inpatient management activities. This 35 minutes is in excess of all separately billable procedures. Past Med/Surg History Medical History (Updated 06/11/21 @ 08:40 by Matias Valentin MD) Atrial fibrillation with RVR CKD (chronic kidney disease) stage 3, GFR 30-59 ml/min Diabetes Diabetes mellitus, type II H/O pilonidal cyst Hyperlipidemia Hypertension LBBB (left bundle branch block) Nonischemic cardiomyopathy Paroxysmal atrial fibrillation Tachycardia induced cardiomyopathy Thyroid nodule Surgical History H/O colonoscopy S/P appendectomy S/P T&A (status post tonsillectomy and adenoidectomy) S/P vasectomy Family History Mother Cancer lung Father Emphysema lung Hypertension Grandfather (Paternal) Heart disease SC at age 65 Grandmother Diabetes Social History Smoking Status: Never smoker Second Hand Exposure: No; Do You Dip or Chew Tobacco: No; Tobacco Cessation Education Requested by Patient: No Hx Alcohol Use: Yes Alcohol type: beer Hx Substance Use: No Preferred Language: Serbian Communication Ability: Effective Support Architect Required: No Beliefs That Will Affect Care: None Current Living Situation: Spouse Other Information That Helps Us Care for You: No Feels Safe at Home: Yes Safety Concerns: Feels Safe At This Time Assistive Devices: None Allergies Allergies Allergy/AdvReac Type Severity Reaction Status Date / Time cephalexin Allergy Intermediate hives Verified 06/10/21 14:43 Home Meds Home Medications Medication Instructions Recorded Confirmed apixaban 5 mg tablet (Eliquis) 5 mg PO BID 02/08/20 06/10/21 atorvastatin 40 mg tablet 40 mg PO HS 02/08/20 06/10/21 canagliflozin 300 mg tablet 300 mg PO QAM 02/08/20 06/10/21 (Invokana) carvedilol 6.25 mg tablet 6.25 mg PO BID 02/08/20 06/10/21 metformin 500 mg tablet,extended 1,000 mg PO BIDM 02/08/20 06/10/21 release 24 hr potassium chloride 10 mEq 10 meq PO QAM 02/08/20 06/10/21 capsule,extended release spironolactone 25 mg tablet 25 mg PO QAM 02/08/20 06/10/21 furosemide 40 mg tablet (Lasix) 40 mg PO QAM 06/10/21 06/10/21 losartan 25 mg tablet 25 mg PO HS 06/10/21 06/10/21 Results & Data (ED) Vital Signs Vital Signs - 24 hr 06/10/21 12:59 06/10/21 13:38 06/10/21 13:40 Temperature 36 C L Temperature Source Temporal Artery Scan Pulse Rate 113 H 107 H 125 H Pulse Rate from SpO2 Sensor 96 H 109 H Respiratory Rate 18 17 17 Respiratory Effort / Characteristics Non-Labored Respiratory Depth Normal Blood Pressure 109/62 Blood Pressure Mean 77 Pulse Oximetry 95 100 100 Oxygen Delivery Method Room Air Sepsis Recent Fever Within 48 Hours No Sepsis New/Unexplained Change in Mental Status No Sepsis Action Taken by Nursing No Action Required 06/10/21 13:50 06/10/21 14:00 06/10/21 14:02 Temperature Temperature Source Pulse Rate 113 H 119 H 120 H Pulse Rate from SpO2 Sensor 111 H 119 H 103 H Respiratory Rate 20 23 21 Respiratory Effort / Characteristics Respiratory Depth Blood Pressure 115/77 Blood Pressure Mean 89 Pulse Oximetry 100 98 99 Oxygen Delivery Method Sepsis Recent Fever Within 48 Hours Sepsis New/Unexplained Change in Mental Status Sepsis Action Taken by Nursing 06/10/21 14:04 06/10/21 14:10 06/10/21 14:20 Temperature Temperature Source Pulse Rate 123 H 107 H 110 H Pulse Rate from SpO2 Sensor 94 H 97 H Respiratory Rate 18 20 Respiratory Effort / Characteristics Respiratory Depth Blood Pressure 108/72 Blood Pressure Mean Pulse Oximetry 99 99 Oxygen Delivery Method Sepsis Recent Fever Within 48 Hours Sepsis New/Unexplained Change in Mental Status Sepsis Action Taken by Nursing 06/10/21 14:30 06/10/21 14:40 06/10/21 14:42 Temperature Temperature Source Pulse Rate 95 H 105 H 120 H Pulse Rate from SpO2 Sensor 88 101 H 103 H Respiratory Rate 18 22 19 Respiratory Effort / Characteristics Respiratory Depth Blood Pressure 95/71 L 118/69 Blood Pressure Mean 79 85 Pulse Oximetry 99 98 99 Oxygen Delivery Method Sepsis Recent Fever Within 48 Hours Sepsis New/Unexplained Change in Mental Status Sepsis Action Taken by Nursing 06/10/21 14:50 06/10/21 14:51 06/10/21 15:00 Temperature Temperature Source Pulse Rate 105 H 112 H 103 H Pulse Rate from SpO2 Sensor 86 98 H Respiratory Rate 18 19 Respiratory Effort / Characteristics Respiratory Depth Blood Pressure 118/67 110/78 Blood Pressure Mean 88 Pulse Oximetry 99 98 Oxygen Delivery Method Sepsis Recent Fever Within 48 Hours Sepsis New/Unexplained Change in Mental Status Sepsis Action Taken by Nursing 06/10/21 15:10 06/10/21 15:18 06/10/21 15:20 Temperature Temperature Source Pulse Rate 119 H 116 H 101 H Pulse Rate from SpO2 Sensor 104 H 105 H Respiratory Rate 18 18 Respiratory Effort / Characteristics Respiratory Depth Blood Pressure 110/72 Blood Pressure Mean Pulse Oximetry 99 99 Oxygen Delivery Method Sepsis Recent Fever Within 48 Hours Sepsis New/Unexplained Change in Mental Status Sepsis Action Taken by Nursing 06/10/21 15:30 06/10/21 15:40 06/10/21 15:50 Temperature Temperature Source Pulse Rate 103 H 101 H 118 H Pulse Rate from SpO2 Sensor 104 H 93 H 110 H Respiratory Rate 16 19 19 Respiratory Effort / Characteristics Respiratory Depth Blood Pressure 108/73 Blood Pressure Mean 84 Pulse Oximetry 97 98 99 Oxygen Delivery Method Sepsis Recent Fever Within 48 Hours Sepsis New/Unexplained Change in Mental Status Sepsis Action Taken by Nursing 06/10/21 16:00 06/10/21 16:10 06/10/21 16:20 Temperature Temperature Source Pulse Rate 99 H 101 H 129 H Pulse Rate from SpO2 Sensor 101 H 105 H 91 H Respiratory Rate 19 17 19 Respiratory Effort / Characteristics Respiratory Depth Blood Pressure Blood Pressure Mean Pulse Oximetry 99 98 99 Oxygen Delivery Method Sepsis Recent Fever Within 48 Hours Sepsis New/Unexplained Change in Mental Status Sepsis Action Taken by Nursing 06/10/21 16:30 Temperature Temperature Source Pulse Rate 116 H Pulse Rate from SpO2 Sensor 95 H Respiratory Rate 19 Respiratory Effort / Characteristics Respiratory Depth Blood Pressure Blood Pressure Mean Pulse Oximetry 99 Oxygen Delivery Method Sepsis Recent Fever Within 48 Hours Sepsis New/Unexplained Change in Mental Status Sepsis Action Taken by Group Home Medications Current Medication List: was personally reviewed by me Laboratory Data Attestation: I reviewed the patient's lab results. Result diagrams: 06/11/21 03:24 06/11/21 03:24 Lab Results 06/10/21 06/10/21 06/10/21 Range/Units 13:09 13:09 13:09 WBC 14.04 H (4.8-10.8) K/uL RBC 5.25 (4.7-6.1) M/uL Hgb 14.3 (14.0-18.0) g/dL Hct 42.6 (42-52) % MCV 81.1 (80-100) fL MCH 27.2 (25-34) pg MCHC 33.6 (32-36) g/dL RDW Std Deviation 43.2 (36.4-46.3) fL RDW Coeff of Josey 14.7 H (11.5-14.5) % Plt Count 226 (130-400) K/uL MPV 10.1 (7.4-10.4) fL Immature Gran % (Auto) 0.4 % Neut % (Auto) 75.2 % Lymph % (Auto) 13.0 % Banner % (Auto) 9.8 % Eos % (Auto) 1.4 % Baso % (Auto) 0.2 % Neut # (Auto) 10.56 H (1.4-6.5) K/uL Lymph # (Auto) 1.83 (1.2-3.4) K/uL Banner # (Auto) 1.37 H (0.11-0.59) K/uL Eos # (Auto) 0.20 (0-0.5) K/uL Baso # (Auto) 0.03 (0-0.2) K/uL Immature Gran # (Auto) 0.05 H (0.00-0.02) K/uL PT 11.2 (9.0-12.0) Seconds INR 1.1 (0.9-1.1) APTT 29.7 (21.0-31.0) Seconds PTT Ratio 1.1 Sodium 137 (136-145) mmol/L Potassium 4.0 (3.5-5.1) mmol/L Chloride 103 (98-107) mmol/L Carbon Dioxide 27 (21-32) mmol/L Anion Gap 7 (3-11) BUN 21 (6-23) mg/dl Creatinine 1.39 (0.6-1.4) mg/dl Est Cr Clr Drug Dosing 66.9 ml/min Est GFR ( Amer) 59.9 ml/min Est GFR (Non-Af Amer) 51.7 ml/min BUN/Creatinine Ratio 15.1 (10-20) Glucose 260 H (70-99(Fasting)) mg/dl Calcium 9.3 (8.5-10.1) mg/dl Magnesium (1.7-2.4) mg/dl Total Bilirubin 0.8 (0.2-1.0) mg/dl AST 14 (13-39) U/L ALT 17 (7-52) U/L Alkaline Phosphatase 59 (34-104) U/L Troponin I < 0.03 (0-0.04) ng/ml Total Protein 7.1 (6.0-8.3) gm/dl Albumin 4.3 (3.4-5.0) gm/dl Globulin 2.8 (2.5-4.0) gm/dl Albumin/Globulin Ratio 1.5 (0.9-2) TSH (0.300-4.500) uIu/ml 06/10/21 06/10/21 Range/Units 13:09 13:09 WBC (4.8-10.8) K/uL RBC (4.7-6.1) M/uL Hgb (14.0-18.0) g/dL Hct (42-52) % MCV (80-100) fL MCH (25-34) pg MCHC (32-36) g/dL RDW Std Deviation (36.4-46.3) fL RDW Coeff of Josey (11.5-14.5) % Plt Count (130-400) K/uL MPV (7.4-10.4) fL Immature Gran % (Auto) % Neut % (Auto) % Lymph % (Auto) % Banner % (Auto) % Eos % (Auto) % Baso % (Auto) % Neut # (Auto) (1.4-6.5) K/uL Lymph # (Auto) (1.2-3.4) K/uL Banner # (Auto) (0.11-0.59) K/uL Eos # (Auto) (0-0.5) K/uL Baso # (Auto) (0-0.2) K/uL Immature Gran # (Auto) (0.00-0.02) K/uL PT (9.0-12.0) Seconds INR (0.9-1.1) APTT (21.0-31.0) Seconds PTT Ratio Sodium (136-145) mmol/L Potassium (3.5-5.1) mmol/L Chloride (98-107) mmol/L Carbon Dioxide (21-32) mmol/L Anion Gap (3-11) BUN (6-23) mg/dl Creatinine (0.6-1.4) mg/dl Est Cr Clr Drug Dosing ml/min Est GFR ( Amer) ml/min Est GFR (Non-Af Amer) ml/min BUN/Creatinine Ratio (10-20) Glucose (70-99(Fasting)) mg/dl Calcium (8.5-10.1) mg/dl Magnesium 2.0 (1.7-2.4) mg/dl Total Bilirubin (0.2-1.0) mg/dl AST (13-39) U/L ALT (7-52) U/L Alkaline Phosphatase (34-104) U/L Troponin I (0-0.04) ng/ml Total Protein (6.0-8.3) gm/dl Albumin (3.4-5.0) gm/dl Globulin (2.5-4.0) gm/dl Albumin/Globulin Ratio (0.9-2) TSH 0.817 (0.300-4.500) uIu/ml Administered Medications Apixaban (Apixaban 5 Mg Tablet) 5 mg PO BID MYNOR Stop: 07/10/21 21:15 Last Admin: 06/10/21 22:05 Dose: 5 mg Documented by: [id number] Atorvastatin Calcium (Atorvastatin 40 Mg Tab) 40 mg PO HS MYNOR Stop: 07/10/21 21:15 Last Admin: 06/10/21 22:06 Dose: 40 mg Documented by: [id number] Carvedilol (Carvedilol 6.25 Mg Tab) 6.25 mg PO BID MYNOR Stop: 07/10/21 21:15 Last Admin: 06/11/21 00:32 Dose: Not Given Documented by: [id number] Insulin Aspart (Insulin Aspart Per Unit) 0 units SC ACHS MYNOR Stop: 07/10/21 21:15 Last Admin: 06/11/21 08:06 Dose: Not Given Documented by: [id number] Admin: 06/10/21 22:04 Dose: 3 units Documented by: [id number] Cosigned by: [id number] Losartan Potassium (Losartan Potassium 25 Mg Tab) 25 mg PO HS [facility] Stop: 07/10/21 21:15 Last Admin: 06/10/21 22:06 Dose: 25 mg Documented by: [id number] Metoprolol Tartrate (Metoprolol Tartrate 1 Mg/Ml Vial) 5 mg IV Q6H PRN; Protocol PRN Reason: Tachycardia Stop: 07/10/21 21:15 Last Admin: 06/11/21 00:30 Dose: 5 mg Documented by: [id number] Discontinued Medications Aspirin (Aspirin Chew 324 Mg) 324 mg PO NOW STA Stop: 06/10/21 13:53 Last Admin: 06/10/21 14:04 Dose: 324 mg Documented by: [id number] Sodium Chloride (Nss 1000ml) 500 mls @ 999 mls/hr IV .Q31M ONE Stop: 06/10/21 15:20 Last Infusion: 06/10/21 15:18 Dose: 0 mls/hr Documented by: [id number] Admin: 06/10/21 14:51 Dose: 999 mls/hr Documented by: [id number] Metoprolol Tartrate (Metoprolol Tartrate 1 Mg/Ml Vial) 5 mg IV Q5M PRN; Protocol PRN Reason: Tachycardia Stop: 07/10/21 13:50 Last Admin: 06/10/21 19:52 Dose: 5 mg Documented by: [id number] Admin: 06/10/21 15:18 Dose: 5 mg Documented by: [id number] Admin: 06/10/21 14:51 Dose: 5 mg Documented by: [id number] Admin: 06/10/21 14:04 Dose: 5 mg Documented by: [id number] Imaging Data Radiologist's Impression: XR chest 1V portable CLINICAL HISTORY: Atypical chest pain. COMPARISON STUDY: Chest radiograph February 08, 2020. FINDINGS: Lung volumes are normal. Lungs are clear. There is no pneumothorax or pleural effusion. Cardiomegaly is unchanged. Mediastinal contours are normal. There is no evidence for pulmonary edema. IMPRESSION: No acute cardiopulmonary findings. Stable cardiomegaly. ACT 112: Negative or not required by law. Electronically signed by: Bird Chatman M.D. 06/10/2021 5:17 PM Dictated:[id number] Transcribed: [id number] Discharge Plan Visit Data Chief Complaint: Chest Pain Stated Complaint: CHEST PAIN/INDIGESTION Discharge Problem: Atrial fibrillation with RVR, LBBB (left bundle branch block), Chronic anticoagulation, Chest pain Patient Disposition: Admitted As Inpatient Discharge Instructions Interventions: ED Discharge Assessment Last Done: 06/10/21 20:41
[2021-06-10 13:40] LABS: Troponin I < 0.03 ng/ml (0-0.04)
[2021-06-10] MEDS ORDERED: ASPIRIN CHEW 324 MG PO STA (13:52)
[2021-06-10 13:55] LABS: Alanine Aminotransferase 17 U/L (7-52); Albumin Globulin Ratio 1.5 (0.9-2); Albumin Level 4.3 gm/dl (3.4-5.0); Alkaline Phosphatase 59 U/L (34-104); Anion Gap 7 (3-11); Aspartate Aminotransferase 14 U/L (13-39); BUN Creatinine Ratio 15.1 (10-20); Bilirubin,Total 0.8 mg/dl (0.2-1.0); Blood Urea Nitrogen 21 mg/dl (6-23); Calcium 9.3 mg/dl (8.5-10.1); Carbon Dioxide 27 mmol/L (21-32); Chloride 103 mmol/L (98-107); Creatinine Clr Calc Pharmacy 66.9 ml/min; Est GFR (African American) 59.9 ml/min; Est GFR (Non-African American) 51.7 ml/min; Globulin 2.8 gm/dl (2.5-4.0); Glucose 260 mg/dl (70-99(Fasting)); Sodium 137 mmol/L (136-145); Total Protein 7.1 gm/dl (6.0-8.3)
[2021-06-10] MEDS: METOPROLOL TARTRATE 1 MG/ML VIAL IV PRN ×4 (14:04→19:52)
--- NOTE | 2021-06-10 14:39 | Electrocardiogram Report ---
Test Reason : Blood Pressure : / mmHG Vent. Rate : 110 BPM Atrial Rate : 125 BPM P-R Int : 000 ms QRS Dur : 154 ms QT Int : 332 ms P-R-T Axes : 000 -16 105 degrees QTc Int : 449 ms Atrial fibrillation with rapid ventricular response Left bundle branch block Abnormal ECG When compared with ECG of 09-FEB-2020 07:32, Atrial fibrillation has replaced Sinus rhythm Vent. rate has increased BY 50 BPM Confirmed by Irwin Cortez ([id number]) on 06/10/2021 2:38:46 PM Referred By: Confirmed By:Zack Cortez
[2021-06-10] MEDS ORDERED: SODIUM CHLORIDE 0.9% 1000ML 500 ML IV ONE (14:50)
--- NOTE | 2021-06-10 16:32 | History & Physical Report ---
Date of Service June 10, 2021 Assessment & Plan (1) Chest pain: (2) Atrial fibrillation with RVR: (3) Paroxysmal atrial fibrillation: Plan: Patient is 66 y/o M with PMH paroxysmal atrial fibrillation s/p cardioversion in 01/2020, on chronic Eliquis, H/O CHF with episode A. fib RVR in 2019, nonischemic cardiomyopathy, DM II, HTN, dyslipidemia, chronic LBBB, CKD III presented to ER with complaint of anterior chest pressure today. Denies palpitations, syncope, dizziness, SOB Today in ER noted to be in afib RVR with rate in the 120s with reported anterior chest pressure, was given Lopressor total 15 mg with improvement of heart rate to high 90s low 100s with improvement of chest pressure from a 7 out of 10 to 1 out of 10. In ER was also given aspirin 324 mg p.o, NSS 500 mL CHEST PAIN R/O ACS, Possible secondary to a-fib RVR Initial troponin negative. EKG A. fib RVR, chronic LBBB History cardiac cath in 2016: No obstructive CAD -Monitor on tele -Repeat EKG in am -Will trend troponin -Echo -TSH,magnesium labs pending -Continue atorvastatin, carvedilol -Continue Eliquis -Lopressor as needed tachycardia -Cardiology consult, ER spoke to Dr Gomez who is aware (4) Nonischemic cardiomyopathy: Plan: In 2015 with return normal LV function Cardiac cath in 2016 no obstructive CAD (5) Diabetes mellitus, type II: Plan: A1c: 7.1 on 02/25/21 Hold home meds Novolog sliding scale per protocol (6) Hypertension: Plan: Continue carvedilol, losartan, lasix, spironolactone (7) Hyperlipidemia: Plan: Continue atorvastatin (8) LBBB (left bundle branch block): Plan: Chronic (9) CKD (chronic kidney disease) stage 3, GFR 30-59 ml/min: Plan: Cr: 1.39. Baseline Cr: 1.4-1.5 Monitor renal functions, avoid nephrotoxic agents when possible DVT Prophylaxis On Eliquis Full Code as per discussion with pt Follows with Dr Ivan Justin for routine care Pt was seen and care coordinated with Dr Romero. See addendum History of Present Illness Primary Care Provider: Ivan Justin DO Patient is 66 y/o M with PMH paroxysmal atrial fibrillation s/p cardioversion in 01/2020, on chronic Eliquis, H/O CHF with episode A. fib RVR in 2019, nonischemic cardiomyopathy, DM II, HTN, dyslipidemia, chronic LBBB, CKD III presented to ER with complaint of CP today. Patient reports this morning was sitting in chair watching TV when he had onset of anterior chest pressure that was nonradiating. Denies any noted palpitations, dizziness, shortness of breath. Patient states ate toast and 2 cups coffee earlier in the day. Patient reports he had episode of hiccups lasting 2 hours that resolved approximately 1 hour prior to chest pressure onset. Otherwise denies nausea, vomiting, diaphoresis. Patient reports history of paroxysmal atrial fibrillation and was in A. fib RVR in past patient was unaware and did not have palpitations or chest pain. Patient denies any missed doses of Eliquis or carvedilol. Denies fever/chills, diaphoresis, N/V/D/C, FON[place], dizziness, syncope, vision changes, neck pain, orthopnea, cough, sore throat, choking, otalgia, rhinorrhea, abdominal pain, paresthesias, weakness, extremity weakness, extremity edema, rashes, urinary symptoms. Today in ER noted to be in afib RVR with rate in the 120s with reported anterior chest pressure, was given Lopressor with improvement of heart rate to high 90s low 100s with improvement of chest pressure from a 7 out of 10 to 1 out of 10. Allergies Allergy/AdvReac Type Severity Reaction Status Date / Time cephalexin Allergy Intermediate hives Verified 06/10/21 14:43 Home Medications Medication Instructions Recorded Confirmed Type apixaban 5 mg tablet (Eliquis) 5 mg PO BID 02/08/20 06/10/21 History atorvastatin 40 mg tablet 40 mg PO HS 02/08/20 06/10/21 History canagliflozin 300 mg tablet 300 mg PO QAM 02/08/20 06/10/21 History (Invokana) carvedilol 6.25 mg tablet 6.25 mg PO BID 02/08/20 06/10/21 History metformin 500 mg tablet,extended 1,000 mg PO BIDM 02/08/20 06/10/21 History release 24 hr potassium chloride 10 mEq 10 meq PO QAM 02/08/20 06/10/21 History capsule,extended release spironolactone 25 mg tablet 25 mg PO QAM 02/08/20 06/10/21 History furosemide 40 mg tablet (Lasix) 40 mg PO QAM 06/10/21 06/10/21 History losartan 25 mg tablet 25 mg PO HS 06/10/21 06/10/21 History Past Med/Surg History Medical History (Updated 06/10/21 @ 19:18 by Deanna Christina PA-C) Atrial fibrillation with RVR CKD (chronic kidney disease) stage 3, GFR 30-59 ml/min Diabetes Diabetes mellitus, type II H/O pilonidal cyst Hyperlipidemia Hypertension LBBB (left bundle branch block) Nonischemic cardiomyopathy Paroxysmal atrial fibrillation Tachycardia induced cardiomyopathy Thyroid nodule Surgical History H/O colonoscopy S/P appendectomy S/P T&A (status post tonsillectomy and adenoidectomy) S/P vasectomy Family History Mother Cancer lung Father Emphysema lung Hypertension Grandfather (Paternal) Heart disease [place] at age 65 Grandmother Diabetes Social History Smoking Status: Never smoker Second Hand Exposure: No; Do You Dip or Chew Tobacco: No; Tobacco Cessation Education Requested by Patient: No Hx Alcohol Use: Yes Alcohol type: beer Hx Substance Use: No Preferred Language: Thai Communication Ability: Effective Embalmer Apprentice Required: No Beliefs That Will Affect Care: None Current Living Situation: Spouse Other Information That Helps Us Care for You: No Feels Safe at Home: Yes Safety Concerns: Feels Safe At This Time Assistive Devices: None Review of Systems Review of Systems: All systems reviewed & are unremarkable except as noted in HPI & below Physical Exam Physical Exam: General: no distress, obese Head: normocephalic, atraumatic Eyes: PERRL, EOM's intact, conjunctiva non-injected, anicteric ENT: normal inspection external ears, nose, mucous membranes moist Neck: supple, trachea midline Lungs: clear, no respiratory distress, no wheezing/rhonchi/rales CV: irregularly irregular, [id number], no JVD, no pretibial edema Abd: protuberant, normal BS, soft, non-tender Ext: no cyanosis, no calf tenderness Neuro: A&O x 3, no focal deficits noted, normal affect Skin: warm, dry Results & Data Results & Data ([facility]) Vital Signs (Past 12 Hours) Vital Signs Temp Pulse Resp BP Pulse Ox 06/10/21 15:18 116 H 110/72 06/10/21 14:51 112 H 118/67 06/10/21 14:04 123 H 108/72 06/10/21 14:02 120 H 21 115/77 99 06/10/21 14:00 119 H 23 98 06/10/21 13:50 113 H 20 100 06/10/21 13:40 125 H 17 100 06/10/21 13:38 107 H 17 100 06/10/21 12:59 36 C L 113 H 18 109/62 95 Laboratory Results Short CBC 06/10/21 Range/Units 13:09 WBC 14.04 H (4.8-10.8) K/uL Hgb 14.3 (14.0-18.0) g/dL Hct 42.6 (42-52) % Plt Count 226 (130-400) K/uL BMP 06/10/21 13:09 Sodium 137 Potassium 4.0 Chloride 103 Carbon Dioxide 27 BUN 21 Creatinine 1.39 Glucose 260 H Calcium 9.3 Cardiac Enzymes 06/10/21 Range/Units 13:09 Troponin I < 0.03 (0-0.04) ng/ml Liver Function 06/10/21 Range/Units 13:09 Total Bilirubin 0.8 (0.2-1.0) mg/dl AST 14 (13-39) U/L ALT 17 (7-52) U/L Alkaline Phosphatase 59 (34-104) U/L Albumin 4.3 (3.4-5.0) gm/dl Diagnostic Findings Chest X-Ray 06/10/21 16:39 XR chest 1V portable CLINICAL HISTORY: Atypical chest pain. COMPARISON STUDY: Chest radiograph February 08, 2020. FINDINGS: Lung volumes are normal. Lungs are clear. There is no pneumothorax or pleural effusion. Cardiomegaly is unchanged. Mediastinal contours are normal. There is no evidence for pulmonary edema. IMPRESSION: No acute cardiopulmonary findings. Stable cardiomegaly. ACT 112: Negative or not required by law. Electronically signed by: Bird Chatman M.D. 06/10/2021 5:17 PM Supervising Physician Co-Signing Physician Notes Care coordinated with Deanna Christina PA-C. Agree with above note. Patient seen and examined. Please refer to her notes for full details. Vital signs reviewed. Physical exam: General exam: Alert and oriented. Not in acute distress. CVS: S1 and S2 heard, regular rate and rhythm, no murmurs. RS: Clear to auscultation, no wheezing or crackles. ABD: Soft, bowel sounds present, nontender, no distention. WATERSHED MANAGER: Nonfocal. EXT: No edema, no erythema. Labs: Reviewed. Assessment and plan: 66M with PMH of DM, PAF, CKD stgae 3, presents with chest pain and rapid afib. Kalpesh was sitting in the chair when he felt chest pain 7/10 in severity. No palpitations. In the ER found to be in rapid a fib. After iv lopressor HR's improved and also chest pain. Hemodynamics stable Chest pain Improved after rapid a fib improved will follow serial CE and echo npo after midnight cardio consult in am' monitor in tele rapid a fib continue coreq and eliquis iv lopressor prn will monitor Other diagnosis and plan of care as per Deanna Christina PA-C.. Alexis delgado MD.
--- NOTE | 2021-06-10 17:18 | XRay Report ---
XR chest 1V portable CLINICAL HISTORY: Atypical chest pain. COMPARISON STUDY: Chest radiograph February 08, 2020. FINDINGS: Lung volumes are normal. Lungs are clear. There is no pneumothorax or pleural effusion. Car diomegaly is unchanged. Mediastinal contours are normal. There is no evidence for pulmonary edema. IMPRESSION: No acute cardiopulmonary findings. Stable cardiomegaly. ACT 112: Negative or not required by law. Electronically signed by: Bird Chatman M.D. 06/10/2021 5:17 PM
[2021-06-10] MEDS ORDERED: NITROGLYCERIN SL 0.4 MG/TAB TAB SL PRN (21:16)
[2021-06-10] MEDS ORDERED: METOPROLOL TARTRATE 1 MG/ML VIAL IV PRN (21:16)
[2021-06-10] MEDS ORDERED: GLUCAGON FOR INJ 1 MG VIAL SQ PRN (21:16)
[2021-06-10] MEDS ORDERED: CARBOHYDRATES FOR HYPOGLYCEMIA PO PRN (21:16)
[2021-06-10] MEDS ORDERED: GLUCOSE 10 TABS/TUBE PO PRN (21:16)
[2021-06-10] MEDS ORDERED: GLUCOSE 40% GEL 15 GM TUBE PO PRN (21:16)
[2021-06-10] MEDS ORDERED: ACETAMINOPHEN 325 MG TAB PO PRN (21:16)
[2021-06-10] MEDS ORDERED: DEXTROSE 50% 50 ML SYRINGE IV PRN (21:16)
[2021-06-10] MEDS: INSULIN ASPART PER UNIT SC SCH (22:04)
[2021-06-10] MEDS: APIXABAN 5 MG TABLET PO SCH (22:05)
[2021-06-10] MEDS: ATORVASTATIN 40 MG TAB PO SCH (22:06)
[2021-06-10] MEDS: LOSARTAN POTASSIUM 25 MG TAB PO SCH (22:06)
[2021-06-11] MEDS: carvediloL 6.25 MG TAB PO SCH ×3 (00:32→22:10)
[2021-06-11 03:32] LABS: Hematocrit (blood only) 39.9 % (42-52); Hemoglobin 13.6 g/dL (14.0-18.0); Mean Corpuscular Hemoglobin 27.9 pg (25-34); Mean Corpuscular Hgb Conc 34.1 g/dL (32-36); Mean Corpuscular Volume 81.8 fL (80-100); Platelet Count 204 K/uL (130-400); RDW Coefficient of Variation 14.9 % (11.5-14.5); RDW Standard Deviation 44.4 fL (36.4-46.3); Red Blood Count 4.88 M/uL (4.7-6.1); White Blood Count 14.28 K/uL (4.8-10.8)
[2021-06-11 04:05] LABS: BUN Creatinine Ratio 15.3 (10-20); Calcium 8.6 mg/dl (8.5-10.1); Creatinine Clr Calc Pharmacy 74.7 ml/min; Est GFR (African American) 68.8 ml/min; Est GFR (Non-African American) 59.4 ml/min; Potassium 4.2 mmol/L (3.5-5.1)
[2021-06-11 04:13] LABS: Basophils # (auto) 0.01 K/uL (0-0.2); Basophils % (auto) 0.1 %; Eosinophils # (auto) 0.08 K/uL (0-0.5); Eosinophils % (auto) 0.6 %; Immature Granulocytes # (auto) 0.04 K/uL (0.00-0.02); Immature Granulocytes % (auto) 0.3 %; Lymphocytes # (auto) 2.12 K/uL (1.2-3.4); Lymphocytes % (auto) 14.8 %; Monocytes # (auto) 1.96 K/uL (0.11-0.59); Monocytes % (auto) 13.7 %; Neutrophils # (auto) 10.07 K/uL (1.4-6.5); Neutrophils % (auto) 70.5 %
[2021-06-11 06:59] LABS: Estimated Average Glucose 169 mg/dl; Hemoglobin A1C 7.5 % (4.5-5.6)
[2021-06-11] MEDS: INSULIN ASPART PER UNIT SC SCH ×4 (08:06→21:22)
[2021-06-11] MEDS: APIXABAN 5 MG TABLET PO SCH ×2 (08:34→22:10)
[2021-06-11] MEDS: POTASSIUM CHLORIDE 10 MEQ TABCR PO SCH (08:34)
[2021-06-11] MEDS: FUROSEMIDE 40 MG TAB PO SCH (08:34)
[2021-06-11] MEDS: SPIRONOLACTONE 25 MG TAB PO SCH (08:35)
--- NOTE | 2021-06-11 10:37 | Electrocardiogram Report ---
Test Reason : Blood Pressure : / mmHG Vent. Rate : 113 BPM Atrial Rate : 104 BPM P-R Int : 000 ms QRS Dur : 150 ms QT Int : 388 ms P-R-T Axes : 000 -26 067 degrees QTc Int : 532 ms Atrial fibrillation with rapid ventricular response Left bundle branch block Abnormal ECG When compared with ECG of 10-JUN-2021 13:06, No significant change was found Confirmed by Martin Rivera ([id number]) on 06/11/2021 10:36:59 AM Referred By: REFERRED SELF Confirmed By:Martin Rivera
[2021-06-11 12:15] LABS: Appearance Urine Clear (Clear); Bilirubin Urine Negative (Negative); Blood Urine Negative (Negative); Color Urine Yellow; Glucose Urine UA 3+ (Negative); Ketones Urine Trace (Negative); Leukocyte Esterase Urine Negative (Negative); Nitrite Urine Negative (Negative); Protein Urine Negative (Negative); Specific Gravity Urine 1.024 (1.000-1.030); Urobilinogen Urine Negative (Negative)
--- NOTE | 2021-06-11 12:24 | Cardiology Consultation ---
Date of Consultation June 11, 2021 Assessment & Plan (1) Atrial fibrillation with RVR: (2) Paroxysmal atrial fibrillation: (3) Nonischemic cardiomyopathy: (4) Tachycardia induced cardiomyopathy: (5) Diabetes mellitus, type II: (6) LBBB (left bundle branch block): Patient is a 66-year-old male with paroxysmal atrial fibrillation past tachycardia mediated nonischemic cardiomyopathy presents now with acute onset of tachyarrhythmias and chest pressure improved with rate control. No recent symptoms of angina congestive heart failure with good exercise tolerance until current complaint Plan: Continue oral anticoagulants and current medications with anticipation of synchronized electrical cardioversion in a.m. We will review echocardiogram in interim History of Present Illness Reason for Consultation: Atrial fibrillation with rapid response, chest pressure Requesting Physician: Dr. Colin Attending Physician: Michael Colin MD History of Present Illness Patient is a 66-year-old male whose ongoing issues include 1. Nonischemic cardiomyopathy diagnosed April 2015 with return to normal LV function 2. Tachycardia mediated LV dysfunction with atrial fibrillation with rapid response 3. Chronic left bundle branch block 4. Hypertension 5. Cardiac catheterization 2015 without obstructive coronary disease 6. Hyperlipidemia on therapy 7. Hyperglycemia 8. Status post synchronized electrical cardioversion for recurrent atrial fibrillation, symptomatic with mild congestive heart failure February 09, 2020 Patient admitted currently after having developed sudden onset of tachypalpitations and chest pressure pain while sitting quietly yesterday morning. Symptoms were associated with elevated ventricular response rate atrial fibrillation on presentation to the ER and resolved after rate control with IV metoprolol. Currently feeling well this morning but has not yet received his carvedilol as of last night and this morning. No worsening cough shortness of breath tachypalpitations dizziness or lightheadedness prior to this. Has been physically active throughout fall and winter with good exercise tolerance and improving overall functional capacity by his own description. No acute weight gain or loss. No fevers chills or unexplained infections. No bleeding difficulties. Patient has remained chronically anticoagulated without interruption Allergies Allergy/AdvReac Type Severity Reaction Status Date / Time cephalexin Allergy Intermediate hives Verified 06/10/21 14:43 Home Medications Medication Instructions Recorded Confirmed Type apixaban 5 mg tablet (Eliquis) 5 mg PO BID 02/08/20 06/10/21 History atorvastatin 40 mg tablet 40 mg PO HS 02/08/20 06/10/21 History canagliflozin 300 mg tablet 300 mg PO QAM 02/08/20 06/10/21 History (Invokana) carvedilol 6.25 mg tablet 6.25 mg PO BID 02/08/20 06/10/21 History metformin 500 mg tablet,extended 1,000 mg PO BIDM 02/08/20 06/10/21 History release 24 hr potassium chloride 10 mEq 10 meq PO QAM 02/08/20 06/10/21 History capsule,extended release spironolactone 25 mg tablet 25 mg PO QAM 02/08/20 06/10/21 History furosemide 40 mg tablet (Lasix) 40 mg PO QAM 06/10/21 06/10/21 History losartan 25 mg tablet 25 mg PO HS 06/10/21 06/10/21 History Patient History Medical History Atrial fibrillation with RVR CKD (chronic kidney disease) stage 3, GFR 30-59 ml/min Diabetes Diabetes mellitus, type II H/O pilonidal cyst Hyperlipidemia Hypertension LBBB (left bundle branch block) Nonischemic cardiomyopathy Paroxysmal atrial fibrillation Tachycardia induced cardiomyopathy Thyroid nodule Surgical History H/O colonoscopy S/P appendectomy S/P T&A (status post tonsillectomy and adenoidectomy) S/P vasectomy Family History Mother Cancer lung Father Emphysema lung Hypertension Grandfather (Paternal) Heart disease [place] at age 65 Grandmother Diabetes Social History Smoking Status: Never smoker Second Hand Exposure: No; Do You Dip or Chew Tobacco: No; Tobacco Cessation Education Requested by Patient: No Hx Alcohol Use: Yes Alcohol type: beer Hx Substance Use: No Preferred Language: Icelandic Communication Ability: Effective Toxicology Supervisor Required: No Beliefs That Will Affect Care: None marital status: Current Living Situation: Spouse How many Children do You have: 2 Other Information That Helps Us Care for You: No Feels Safe at Home: Yes Safety Concerns: Feels Safe At This Time Assistive Devices: None Review of Systems Review of Systems: All systems reviewed & are unremarkable except as noted in HPI & below Physical Exam Constitutional: WD/WN, vitals as above Eyes: PERRL, conjunctivae normal, anicteric sclerae ENMT: external ear and nose normal, oropharynx normal Neck: trachea midline, no thyromegaly Respiratory: normal respiratory effort, lungs clear to auscultation Cardiovascular: Rate/Rhythm: + tachycardic and + irregularly irregular Heart Sounds: normal S1 and normal S2; no gallop and no murmur Palpation: normal PMI Vessels: normal carotid upstroke and radial pulses present; no JVD and no carotid bruit Extremities: no edema Gastrointestinal (Abdomen): normal bowel sounds, soft, nontender, no hepatosplenomegaly Musculoskeletal: no cyanosis or clubbing, extremities motor strength 5/5 Skin: no rashes, warm and dry Neurologic: PERRL, EOMI, accommodation nl, no face palsy, no dysarthria Psychiatric: A+Ox3, euthymic affect Results & Data ([facility]) Vital Signs (Past 12 Hours) Vital Signs Temp Pulse Pulse Resp BP BP Pulse Ox 06/11/21 08:13 36.5 C 97 H 18 111/75 96 06/11/21 03:15 36.7 C 110 H 16 100/68 96 06/11/21 00:30 115 H 104/72 06/11/21 00:25 37.0 C 115 H 18 104/72 96 Laboratory Results Laboratory Results - last 24 hr 06/10/21 06/10/21 06/10/21 13:09 13:09 13:09 WBC 14.04 H RBC 5.25 Hgb 14.3 Hct 42.6 MCV 81.1 MCH 27.2 MCHC 33.6 RDW Std Deviation 43.2 RDW Coeff of Josey 14.7 H Plt Count 226 MPV 10.1 Immature Gran % (Auto) 0.4 Neut % (Auto) 75.2 Lymph % (Auto) 13.0 Bullock % (Auto) 9.8 Eos % (Auto) 1.4 Baso % (Auto) 0.2 Neut # (Auto) 10.56 H Lymph # (Auto) 1.83 Bullock # (Auto) 1.37 H Eos # (Auto) 0.20 Baso # (Auto) 0.03 Immature Gran # (Auto) 0.05 H PT 11.2 INR 1.1 APTT 29.7 PTT Ratio 1.1 Sodium 137 Potassium 4.0 Chloride 103 Carbon Dioxide 27 Anion Gap 7 BUN 21 Creatinine 1.39 Est Cr Clr Drug Dosing 66.9 Est GFR ( Amer) 59.9 Est GFR (Non-Af Amer) 51.7 BUN/Creatinine Ratio 15.1 Glucose 260 H POC Glucose Estimat Average Glucose Hemoglobin A1c Calcium 9.3 Magnesium Total Bilirubin 0.8 AST 14 ALT 17 Alkaline Phosphatase 59 Troponin I < 0.03 Total Protein 7.1 Albumin 4.3 Globulin 2.8 Albumin/Globulin Ratio 1.5 TSH Urine Color Urine Appearance Urine pH Ur Specific [place] Urine Protein Urine Glucose (UA) Urine Ketones Urine Blood Urine Nitrite Urine Bilirubin Urine Urobilinogen Ur Leukocyte Esterase SARS-CoV-2, RNA, NAAT 06/10/21 06/10/21 06/10/21 13:09 13:09 16:50 WBC RBC Hgb Hct MCV MCH MCHC RDW Std Deviation RDW Coeff of Josey Plt Count MPV Immature Gran % (Auto) Neut % (Auto) Lymph % (Auto) Bullock % (Auto) Eos % (Auto) Baso % (Auto) Neut # (Auto) Lymph # (Auto) Bullock # (Auto) Eos # (Auto) Baso # (Auto) Immature Gran # (Auto) PT INR APTT PTT Ratio Sodium Potassium Chloride Carbon Dioxide Anion Gap BUN Creatinine Est Cr Clr Drug Dosing Est GFR ( Amer) Est GFR (Non-Af Amer) BUN/Creatinine Ratio Glucose POC Glucose Estimat Average Glucose Hemoglobin A1c Calcium Magnesium 2.0 Total Bilirubin AST ALT Alkaline Phosphatase Troponin I Total Protein Albumin Globulin Albumin/Globulin Ratio TSH 0.817 Urine Color Urine Appearance Urine pH Ur Specific [place] Urine Protein Urine Glucose (UA) Urine Ketones Urine Blood Urine Nitrite Urine Bilirubin Urine Urobilinogen Ur Leukocyte Esterase SARS-CoV-2, RNA, NAAT NEGATIVE 06/10/21 06/10/21 06/11/21 21:28 21:29 03:24 WBC RBC Hgb Hct MCV MCH MCHC RDW Std Deviation RDW Coeff of Josey Plt Count MPV Immature Gran % (Auto) Neut % (Auto) Lymph % (Auto) Bullock % (Auto) Eos % (Auto) Baso % (Auto) Neut # (Auto) Lymph # (Auto) Bullock # (Auto) Eos # (Auto) Baso # (Auto) Immature Gran # (Auto) PT INR APTT PTT Ratio Sodium Potassium Chloride Carbon Dioxide Anion Gap BUN Creatinine Est Cr Clr Drug Dosing Est GFR ( Amer) Est GFR (Non-Af Amer) BUN/Creatinine Ratio Glucose POC Glucose 228 H Estimat Average Glucose Hemoglobin A1c Calcium Magnesium Total Bilirubin AST ALT Alkaline Phosphatase Troponin I < 0.03 < 0.03 Total Protein Albumin Globulin Albumin/Globulin Ratio TSH Urine Color Urine Appearance Urine pH Ur Specific [place] Urine Protein Urine Glucose (UA) Urine Ketones Urine Blood Urine Nitrite Urine Bilirubin Urine Urobilinogen Ur Leukocyte Esterase SARS-CoV-2, RNA, NAAT 06/11/21 06/11/21 06/11/21 03:24 03:24 03:24 WBC 14.28 H RBC 4.88 Hgb 13.6 L Hct 39.9 L MCV 81.8 MCH 27.9 MCHC 34.1 RDW Std Deviation 44.4 RDW Coeff of Josey 14.9 H Plt Count 204 MPV 10.0 Immature Gran % (Auto) 0.3 Neut % (Auto) 70.5 Lymph % (Auto) 14.8 Bullock % (Auto) 13.7 Eos % (Auto) 0.6 Baso % (Auto) 0.1 Neut # (Auto) 10.07 H Lymph # (Auto) 2.12 Bullock # (Auto) 1.96 H Eos # (Auto) 0.08 Baso # (Auto) 0.01 Immature Gran # (Auto) 0.04 H PT INR APTT PTT Ratio Sodium 138 Potassium 4.2 Chloride 105 Carbon Dioxide 24 Anion Gap 9 BUN 19 Creatinine 1.24 Est Cr Clr Drug Dosing 74.7 Est GFR ( Amer) 68.8 Est GFR (Non-Af Amer) 59.4 BUN/Creatinine Ratio 15.3 Glucose 148 H POC Glucose Estimat Average Glucose 169 Hemoglobin A1c 7.5 H Calcium 8.6 Magnesium Total Bilirubin AST ALT Alkaline Phosphatase Troponin I Total Protein Albumin Globulin Albumin/Globulin Ratio TSH Urine Color Urine Appearance Urine pH Ur Specific [place] Urine Protein Urine Glucose (UA) Urine Ketones Urine Blood Urine Nitrite Urine Bilirubin Urine Urobilinogen Ur Leukocyte Esterase SARS-CoV-2, RNA, NAAT 06/11/21 06/11/21 06/11/21 07:18 11:13 11:58 WBC RBC Hgb Hct MCV MCH MCHC RDW Std Deviation RDW Coeff of Josey Plt Count MPV Immature Gran % (Auto) Neut % (Auto) Lymph % (Auto) Bull[place] % (Auto) Eos % (Auto) Baso % (Auto) Neut # (Auto) Lymph # (Auto) [place] # (Auto) Eos # (Auto) Baso # (Auto) Immature Gran # (Auto) PT INR APTT PTT Ratio Sodium Potassium Chloride Carbon Dioxide Anion Gap BUN Creatinine Est Cr Clr Drug Dosing Est GFR ( Amer) Est GFR (Non-Af Amer) BUN/Creatinine Ratio Glucose POC Glucose 124 H 124 H Estimat Average Glucose Hemoglobin A1c Calcium Magnesium Total Bilirubin AST ALT Alkaline Phosphatase Troponin I Total Protein Albumin Globulin Albumin/Globulin Ratio TSH Urine Color Yellow Urine Appearance Clear Urine pH 5.0 Ur Specific [place] 1.024 Urine Protein Negative Urine Glucose (UA) 3+ H Urine Ketones Trace H Urine Blood Negative Urine Nitrite Negative Urine Bilirubin Negative Urine Urobilinogen Negative Ur Leukocyte Esterase Negative SARS-CoV-2, RNA, NAAT Diagnostic Findings Echocardiogram 09/22/2020 There was sinus bradycardia during the examination. The left ventricular cavity size is normal. The LV wall thickness is mildly increased (concentric). The septal motion is abnormal consistent with intrventricular conduction delay. The remaining left ventricular wall segments are moderately hypokinetic. Calculated LV ejection Fraction = 40% (bi-plane method of discs). There is no significant valvular disease There is no evidence of pulmonary hypertension. Compared to last available study changes are noted as follows: There has been mild improvement overall LV cavity size and function ECG Indication: tachycardia Rhythm: atrial fibrillation Findings: + LBBB
--- NOTE | 2021-06-11 14:17 | Hospitalist Progress Note ---
Date of Service June 11, 2021 Assessment & Plan (1) Chest pain: (2) Atrial fibrillation with RVR: (3) Paroxysmal atrial fibrillation: Plan: Patient is 66 yr male with H/O Paroxysmal atrial fibrillation s/p cardioversion in 01/2020, on chronic Eliquis, H/O CHF with episode A. fib RVR in 2019, nonischemic cardiomyopathy, DM II, HTN, dyslipidemia, chronic LBBB, CKD III presented to ER with complaint of anterior chest pressure. Atrial fibrillation RVR Chronic left bundle branch block H/O nonischemic cardiomyopathy Chest Pain due to above --CXR:No acute cardiopulmonary findings. Stable cardiomegaly. --Troponin X 2: Negative --Normal TSH --ECHO: Mild concentric LVH. Septal motion is consistent with conduction abnormality. Mild to moderate global hypokinesis of left ventricle. EF 25 to 30%. Moderate MR. No signs of significant volume overload Continue carvedilol 6.25 mg twice daily Also on Lasix 40 mg daily Monitor volume status Lopressor as needed Continue Eliquis for anticoagulation Appreciate cardiology input Plan for synchronized cardioversion tomorrow N.p.o. after midnight (4) Nonischemic cardiomyopathy: Plan: In 2016 with return normal LV function Cardiac cath in 2016 no obstructive CAD Continue home diuretics Monitor I's and O's, daily weight, volume status (5) Diabetes mellitus, type II: Plan: A1c: 7.1 on 02/25/21 Hold home meds Novolog sliding scale per protocol (6) Hypertension: Plan: Continue carvedilol, losartan Also on lasix, spironolactone (7) Hyperlipidemia: Plan: Continue atorvastatin (8) LBBB (left bundle branch block): Plan: Chronic (9) CKD (chronic kidney disease) stage 3, GFR 30-59 ml/min: Plan: Baseline Cr: 1.4-1.5 Cr at baseline Monitor renal function Avoid nephrotoxic agents when possible DVT Px On Eliquis Code Status Full Code Admission and Anticipated Discharge Date Admission Date: June 10, 2021 Subjective Patient is seen and examined at bedside Chest pain much improved Denies any shortness of breath, dizziness, nausea, abdominal pain Offers no other complaints Planned for cardioversion tomorrow Review of Systems Review of Systems: All systems reviewed & are unremarkable except as noted in Subjective Physical Exam Physical Exam: Physical Exam: Vitals signs as noted above General Appearance:Moderately built and nourished, no apparent distress Head: normocephalic, Atraumatic Eyes: normal inspection, EOMI Neck: supple, Trachea midline Respiratory/Chest: Normal breath sounds, CTA, No accessory muscle use Cardiovascular: Irregularly irregular, tachycardia , No murmur Abdomen/GI:Soft, Non tender, Bowel sounds present Extremities/Musculoskeletal:normal inspection, Trace edema Neurologic/Psych:AAOX3, grossly no focal neurological deficits Skin: normal color, warm Results & Data Results & Data ([facility]) Vital Signs (Past 12 Hours) Vital Signs Temp Pulse Resp BP Pulse Ox 06/11/21 12:25 36.9 C 96 H 19 115/76 100 06/11/21 08:13 36.5 C 97 H 18 111/75 96 06/11/21 03:15 36.7 C 110 H 16 100/68 96 Laboratory Results Short CBC 06/11/21 Range/Units 03:24 WBC 14.28 H (4.8-10.8) K/uL Hgb 13.6 L (14.0-18.0) g/dL Hct 39.9 L (42-52) % Plt Count 204 (130-400) K/uL BMP 06/11/21 03:24 Sodium 138 Potassium 4.2 Chloride 105 Carbon Dioxide 24 BUN 19 Creatinine 1.24 Glucose 148 H Calcium 8.6 Cardiac Enzymes 06/10/21 06/11/21 Range/Units 21:29 03:24 Troponin I < 0.03 < 0.03 (0-0.04) ng/ml Urine 06/11/21 Range/Units 11:58 Urine Color Yellow Urine Appearance Clear (Clear) Urine pH 5.0 (4.5-7.5) Ur Specific [place] 1.024 (1.000-1.030) Urine Protein Negative (Negative) Urine Glucose (UA) 3+ H (Negative) (1) Chest pain Chest pain type: unspecified Qualified Code(s): R07.9 - Chest pain, unspecified
[2021-06-11] MEDS: LOSARTAN POTASSIUM 25 MG TAB PO SCH (22:11)
[2021-06-11] MEDS: ATORVASTATIN 40 MG TAB PO SCH (22:11)
[2021-06-12 06:50] LABS: Hematocrit (blood only) 41.3 % (42-52); Hemoglobin 13.6 g/dL (14.0-18.0); Mean Corpuscular Hgb Conc 32.9 g/dL (32-36); Mean Corpuscular Volume 81.9 fL (80-100); Mean Platelet Volume 10.3 fL (7.4-10.4); Platelet Count 206 K/uL (130-400); RDW Coefficient of Variation 14.7 % (11.5-14.5); RDW Standard Deviation 43.8 fL (36.4-46.3); Red Blood Count 5.04 M/uL (4.7-6.1); White Blood Count 14.86 K/uL (4.8-10.8)
[2021-06-12] MEDS ORDERED: PROPOFOL IV EMULSION 10 MG/ML 20 ML VIAL IV ONE (07:13)
[2021-06-12 07:14] LABS: BUN Creatinine Ratio 16.8 (10-20); Calcium 8.6 mg/dl (8.5-10.1); Creatinine Clr Calc Pharmacy 72.5 ml/min; Est GFR (African American) 64.4 ml/min; Est GFR (Non-African American) 55.5 ml/min; Magnesium 2.1 mg/dl (1.7-2.4); Potassium 4.4 mmol/L (3.5-5.1)
[2021-06-12] MEDS ORDERED: LIDOCAINE 2% MPF LOCAL 5 ML VIAL INFIL ONE (07:14)
--- NOTE | 2021-06-12 07:19 | Anesthesiology Consultation ---
Date of Service June 12, 2021 Assessment & Plan (1) Encounter for pre-operative examination: Chart Review Chart Review: Acceptable Risk for Surgery and Patient NOT seen in Pre Admission Testing Consults Requested none History Height/Weight Height: 6 ft 1 in Weight: 117.7 kg Allergies Allergy/AdvReac Type Severity Reaction Status Date / Time cephalexin Allergy Intermediate hives Verified 06/10/21 14:43 Medications Home Medications Medication Instructions Recorded Confirmed Last Taken apixaban 5 mg tablet (Eliquis) 5 mg PO BID 02/08/20 06/10/21 06/10/21 atorvastatin 40 mg tablet 40 mg PO HS 02/08/20 06/10/21 06/09/21 canagliflozin 300 mg tablet 300 mg PO QAM 02/08/20 06/10/21 06/10/21 (Invokana) carvedilol 6.25 mg tablet 6.25 mg PO BID 02/08/20 06/10/21 06/10/21 metformin 500 mg tablet,extended 1,000 mg PO BIDM 02/08/20 06/10/21 06/10/21 release 24 hr potassium chloride 10 mEq 10 meq PO QAM 02/08/20 06/10/21 06/10/21 capsule,extended release spironolactone 25 mg tablet 25 mg PO QAM 02/08/20 06/10/21 06/10/21 furosemide 40 mg tablet (Lasix) 40 mg PO QAM 06/10/21 06/10/21 06/10/21 losartan 25 mg tablet 25 mg PO HS 06/10/21 06/10/21 06/09/21 Active Medications Generic Name Dose Route Start Last Admin Trade Name Devynq PRN Reason Stop Dose Admin Apixaban 5 mg 06/10/21 21:16 06/11/21 22:10 Apixaban 5 Mg Tablet PO 07/10/21 21:15 5 mg BID MYNOR Administration Atorvastatin Calcium 40 mg 06/10/21 21:16 06/11/21 22:11 Atorvastatin 40 Mg Tab PO 07/10/21 21:15 40 mg HS MYNOR Administration Carvedilol 6.25 mg 06/10/21 21:16 06/11/21 22:10 Carvedilol 6.25 Mg Tab PO 07/10/21 21:15 6.25 mg BID MYNOR Administration Furosemide 40 mg 06/11/21 09:00 06/11/21 08:34 Furosemide 40 Mg Tab PO 07/11/21 08:59 40 mg QAM MYNOR Administration Insulin Aspart 0 units 06/10/21 21:16 06/11/21 21:22 Insulin Aspart Per Unit SC 07/10/21 21:15 Not Given ACHS MYNOR Losartan Potassium 25 mg 06/10/21 21:16 06/11/21 22:11 Losartan Potassium 25 Mg Tab PO 07/10/21 21:15 25 mg HS MYNOR Administration Metoprolol Tartrate 5 mg 06/10/21 21:16 06/11/21 00:30 Metoprolol Tartrate 1 Mg/Ml Vial IV 07/10/21 21:15 5 mg Q6H PRN Administration Tachycardia Protocol Potassium Chloride 10 meq 06/11/21 09:00 06/11/21 08:34 Potassium Chloride 10 Meq Tabcr PO 07/11/21 08:59 10 meq QAM MYNOR Administration Spironolactone 25 mg 06/11/21 09:00 06/11/21 08:35 Spironolactone 25 Mg Tab PO 07/11/21 08:59 25 mg QAM MYNOR Administration Past Medical History Medical History Atrial fibrillation with RVR CKD (chronic kidney disease) stage 3, GFR 30-59 ml/min Diabetes Diabetes mellitus, type II H/O pilonidal cyst Hyperlipidemia Hypertension LBBB (left bundle branch block) Nonischemic cardiomyopathy Paroxysmal atrial fibrillation Tachycardia induced cardiomyopathy Thyroid nodule Past Family History Family History Mother Cancer lung Father Emphysema lung Hypertension Grandfather (Paternal) Heart disease [place] at age 65 Grandmother Diabetes Past Surgical History Surgical History H/O colonoscopy S/P appendectomy S/P T&A (status post tonsillectomy and adenoidectomy) S/P vasectomy Social History Smoking Status: Never smoker Do You Dip or Chew Tobacco: No Hx Alcohol Use: Yes Alcohol type: beer alcohol intake frequency: a few times a week Hx Substance Use: No substance use type: does not use Physical Exam Vital Signs Last Vital Signs Temp 36.8 C 06/12/21 03:52 Pulse 122 H 06/12/21 03:52 Resp 20 06/12/21 03:52 BP 125/79 06/12/21 03:52 Pulse Ox 97 06/12/21 03:52 Testing Laboratory Results 06/12/21 06:18 06/12/21 06:18 PT 11.2 Seconds (9.0-12.0) 06/10/21 13:09 INR 1.1 (0.9-1.1) 06/10/21 13:09 APTT 29.7 Seconds (21.0-31.0) 06/10/21 13:09 Hemoglobin A1c 7.5 % (4.5-5.6) H 06/11/21 03:24 Urine Color Yellow 06/11/21 11:58 Urine Appearance Clear (Clear) 06/11/21 11:58 Urine pH 5.0 (4.5-7.5) 06/11/21 11:58 Ur Specific [place] 1.024 (1.000-1.030) 06/11/21 11:58 Urine Protein Negative (Negative) 06/11/21 11:58 Urine Glucose (UA) 3+ (Negative) H 06/11/21 11:58 Urine Ketones Trace (Negative) H 06/11/21 11:58 Urine Nitrite Negative (Negative) 06/11/21 11:58 Ur Leukocyte Esterase Negative (Negative) 06/11/21 11:58 06/11/21 20:05 POC Glucose 150 H
--- NOTE | 2021-06-12 07:47 | Cardioversion ---
Date of Service June 12, 2021 Electrical Cardioversion Rpt Electrical Cardioversion Report Patient was seen and examined, synchronized electrical cardioversion discussed in detail and informed consent was obtained. Patient was sedated via anesthesia consultation with continuous heart rate blood pressure oxygen and end-tidal CO2 monitoring. Synchronized electrical cardioversion performed a single 200 J biphasic shock with successful conversion to sinus rhythm. Patient aroused having tolerated well. EKG post procedure sinus rhythm with sinus arrhythmia, left bundle branch block Telemetry with occasional ventricular ectopic beats
[2021-06-12] MEDS: INSULIN ASPART PER UNIT SC SCH ×4 (08:09→21:31)
[2021-06-12] MEDS: APIXABAN 5 MG TABLET PO SCH ×2 (08:12→21:25)
[2021-06-12] MEDS: carvediloL 6.25 MG TAB PO SCH (08:12)
[2021-06-12] MEDS: POTASSIUM CHLORIDE 10 MEQ TABCR PO SCH (08:13)
[2021-06-12] MEDS: FUROSEMIDE 40 MG TAB PO SCH (08:13)
[2021-06-12] MEDS: SPIRONOLACTONE 25 MG TAB PO SCH (08:14)
--- NOTE | 2021-06-12 08:50 | Anesthesiology Progress Note ---
Date of Service June 12, 2021 Anesthesia Post Procedure Vital Signs Vital Signs: Temp Pulse Pulse Resp BP Pulse Ox 06/12/21 08:26 36.8 C 130 H 18 120/73 99 06/12/21 07:52 69 18 100/71 98 06/12/21 07:47 70 18 98/54 L 98 06/12/21 07:42 70 16 104/62 99 06/12/21 07:37 73 16 101/58 L 100 06/12/21 07:34 145 H 06/12/21 07:32 132 H 16 115/85 100 06/12/21 07:30 155 H 18 120/99 95 06/12/21 07:25 135 H 16 107/87 100 06/12/21 07:20 144 H 16 109/89 98 06/12/21 06:51 36.8 C 107 H 18 115/68 96 06/12/21 03:52 36.8 C 122 H 20 125/79 97 06/11/21 23:08 36.8 C 101 H 16 94/62 L 95 06/11/21 23:00 140 H 06/11/21 19:36 37.0 C 117 H 20 116/84 97 06/11/21 16:07 37.3 C 103 H 19 116/72 98 06/11/21 12:25 36.9 C 96 H 19 115/76 100 Pain Intensity Chest: Pain Intensity: 6 Transfer of Care Handoff Completed per policy Notes Mental Status: alert / awake / arousable and participated in evaluation Patient Amnestic to Procedure: Yes Nausea / Vomiting: adequately controlled Pain: adequately controlled Airway Patency, RR, SpO2: stable & adequate BP & HR: stable & adequate Hydration State: stable & adequate Anesthetic Complications: no major complications apparent and Pt Satisfied with anesthetic care
--- NOTE | 2021-06-12 12:58 | Electrocardiogram Report ---
Test Reason : Blood Pressure : / mmHG Vent. Rate : 068 BPM Atrial Rate : 068 BPM P-R Int : 192 ms QRS Dur : 140 ms QT Int : 450 ms P-R-T Axes : 059 -01 067 degrees QTc Int : 478 ms Normal sinus rhythm with sinus arrhythmia Left bundle branch block Abnormal ECG When compared with ECG of 11-JUN-2021 05:22, Sinus rhythm has replaced Atrial fibrillation Vent. rate has decreased BY 45 BPM Confirmed by Martin Rivera ([id number]) on 06/12/2021 12:57:47 PM Referred By: REFERRED SELF Confirmed By:Martin Rivera
--- NOTE | 2021-06-12 12:59 | Electrocardiogram Report ---
Test Reason : Blood Pressure : / mmHG Vent. Rate : 135 BPM Atrial Rate : 366 BPM P-R Int : 000 ms QRS Dur : 150 ms QT Int : 368 ms P-R-T Axes : 000 -06 086 degrees QTc Int : 552 ms Possible Atrial flutter with variable A-V block Left bundle branch block Abnormal ECG When compared with ECG of 12-JUN-2021 07:36, (unconfirmed) Atrial flutter has replaced Sinus rhythm Vent. rate has increased BY 67 BPM Confirmed by Martin Rivera ([id number]) on 06/12/2021 12:58:46 PM Referred By: REFERRED SELF Confirmed By:Martin Rivera
[2021-06-12] MEDS: AMIODARONE 200 MG TAB PO SCH ×2 (13:38→17:15)
--- NOTE | 2021-06-12 13:50 | Cardiology Progress Note ---
Date of Service June 12, 2021 Assessment & Plan (1) Atrial fibrillation with RVR: (2) Paroxysmal atrial fibrillation: (3) Nonischemic cardiomyopathy: (4) Tachycardia induced cardiomyopathy: (5) Diabetes mellitus, type II: (6) LBBB (left bundle branch block): Plan: Patient is a 66-year-old male with paroxysmal atrial fibrillation past tachycardia mediated nonischemic cardiomyopathy presents now with acute onset of tachyarrhythmias and chest pressure improved with rate control. No recent symptoms of angina congestive heart failure with good exercise tolerance until current complaint Patient underwent synchronized electrical cardioversion with initial success however lapsed back into atrial fibrillation after 30 minutes Plan: Continue oral anticoagulants Initiate antiarrhythmic therapy with amiodarone 40 mg p.o. 3 times daily while reducing carvedilol dose EKG a.m. maintain telemetry minimum of 48 hours If amiodarone not tolerated will need to investigate pulmonary vein isolation ablation Admission and Anticipated Discharge Date Admission Date: June 10, 2021 Subjective Patient seen and examined both prior and after synchronized electrical cardioversion this morning. No acute complaints overall feeling well Underwent synchronized electrical cardioversion with successful conversion to s inus rhythm only to lapsed back into atrial fibrillation shortly after. No chest pains or worsening shortness of breath. No dizziness or lightheadedness. Review of Systems Review of Systems: All systems reviewed & are unremarkable except as noted in Subjective Physical Exam Constitutional: WD/WN, vitals as above Eyes: PERRL, conjunctivae normal, anicteric sclerae ENMT: external ear and nose normal, oropharynx normal Neck: trachea midline, no thyromegaly Respiratory: normal respiratory effort, lungs clear to auscultation Cardiovascular: Rate/Rhythm: + tachycardic and + irregularly irregular Heart Sounds: normal S1 and normal S2; no gallop and no murmur Palpation: normal PMI Vessels: normal carotid upstroke and radial pulses present; no JVD and no carotid bruit Extremities: no edema Gastrointestinal (Abdomen): normal bowel sounds, soft, nontender, no hepatosplenomegaly Musculoskeletal: no cyanosis or clubbing, extremities motor strength 5/5 Skin: no rashes, warm and dry Neurologic: PERRL, EOMI, accommodation nl, no face palsy, no dysarthria Psychiatric: A+Ox3, euthymic affect Results & Data ([facility]) Vital Signs (Past 12 Hours) Vital Signs Temp Pulse Pulse Resp BP Pulse Ox 06/12/21 11:46 36.8 C 101 H 16 99/62 L 97 06/12/21 08:26 36.6 C 116 H 18 105/68 99 06/12/21 07:52 69 18 100/71 98 06/12/21 07:47 70 18 98/54 L 98 06/12/21 07:42 70 16 104/62 99 06/12/21 07:37 73 16 101/58 L 100 06/12/21 07:34 145 H 06/12/21 07:32 132 H 16 115/85 100 06/12/21 07:30 155 H 18 120/99 95 06/12/21 07:25 135 H 16 107/87 100 06/12/21 07:20 144 H 16 109/89 98 06/12/21 06:51 36.8 C 107 H 18 115/68 96 06/12/21 03:52 36.8 C 122 H 20 125/79 97 Laboratory Results Laboratory Results - last 24 hr 06/11/21 06/11/21 06/12/21 16:17 20:05 06:18 WBC 14.86 H RBC 5.04 Hgb 13.6 L Hct 41.3 L MCV 81.9 MCH 27.0 MCHC 32.9 RDW Std Deviation 43.8 RDW Coeff of Josey 14.7 H Plt Count 206 MPV 10.3 Sodium Potassium Chloride Carbon Dioxide Anion Gap BUN Creatinine Est Cr Clr Drug Dosing Est GFR ( Amer) Est GFR (Non-Af Amer) BUN/Creatinine Ratio Glucose POC Glucose 132 H 150 H Calcium Magnesium 06/12/21 06/12/21 06/12/21 06:18 08:08 11:15 WBC RBC Hgb Hct MCV MCH MCHC RDW Std Deviation RDW Coeff of Josey Plt Count MPV Sodium 137 Potassium 4.4 Chloride 103 Carbon Dioxide 24 Anion Gap 10 BUN 22 Creatinine 1.31 Est Cr Clr Drug Dosing 72.5 Est GFR ( Amer) 64.4 Est GFR (Non-Af Amer) 55.5 BUN/Creatinine Ratio 16.8 Glucose 114 H POC Glucose 126 H 183 H Calcium 8.6 Magnesium 2.1
--- NOTE | 2021-06-12 19:45 | Hospitalist Progress Note ---
Date of Service June 12, 2021 Assessment & Plan (1) Chest pain: (2) Atrial fibrillation with RVR: (3) Paroxysmal atrial fibrillation: Plan: Patient is 66 yr male with H/O Paroxysmal atrial fibrillation s/p cardioversion in 01/2020, on chronic Eliquis, H/O CHF with episode A. fib RVR in 2019, nonischemic cardiomyopathy, DM II, HTN, dyslipidemia, chronic LBBB, CKD III presented to ER with complaint of anterior chest pressure. Atrial fibrillation RVR Chronic left bundle branch block H/O nonischemic cardiomyopathy Chest Pain due to above --CXR:No acute cardiopulmonary findings. Stable cardiomegaly. --Troponin X 2: Negative --Normal TSH --ECHO: Mild concentric LVH. Septal motion is consistent with conduction abnormality. Mild to moderate global hypokinesis of left ventricle. EF 25 to 30%. Moderate MR. No signs of significant volume overload Failed cardioversion on 06/12/2019 Decrease carvedilol 3.125 mg twice daily Continue Lasix 40 mg daily Monitor volume status Lopressor as needed Continue Eliquis for anticoagulation Appreciate cardiology input Started on amiodarone 400 mg 3 times daily Plan for pulmonary vein isolation if intolerance to amiodarone as per cardiology (4) Nonischemic cardiomyopathy: Plan: In 2016 with return normal LV function Cardiac cath in 2016 no obstructive CAD Continue home diuretics Monitor I's and O's, daily weight, volume status (5) Diabetes mellitus, type II: Plan: A1c: 7.1 on 02/25/21 Hold home meds Novolog sliding scale per protocol (6) Hypertension: Plan: Continue carvedilol, losartan Also on lasix, spironolactone (7) Hyperlipidemia: Plan: Continue atorvastatin (8) LBBB (left bundle branch block): Plan: Chronic (9) CKD (chronic kidney disease) stage 3, GFR 30-59 ml/min: Plan: Baseline Cr: 1.4-1.5 Cr at baseline Monitor renal function Avoid nephrotoxic agents when possible DVT Px On Eliquis Code Status Full Code Admission and Anticipated Discharge Date Admission Date: June 10, 2021 Subjective Patient is seen and examined at bedside Failed synchronized cardioversion this morning Patient subjectively feels well No complaints Denies any chest pain, shortness of breath, dizziness, nausea, abdominal pain Review of Systems Review of Systems: All systems reviewed & are unremarkable except as noted in Subjective Physical Exam Physical Exam: Physical Exam: Vitals signs as noted above General Appearance:Moderately built and nourished, no apparent distress Head: normocephalic, Atraumatic Eyes: normal inspection, EOMI Neck: supple, Trachea midline Respiratory/Chest: Normal breath sounds, CTA, No accessory muscle use Cardiovascular: Irregularly irregular, tachycardia , No murmur Abdomen/GI:Soft, Non tender, Bowel sounds present Extremities/Musculoskeletal:normal inspection, Trace edema Neurologic/Psych:AAOX3, grossly no focal neurological deficits Skin: normal color, warm Results & Data Results & Data ([facility]) Vital Signs (Past 12 Hours) Vital Signs Temp Pulse Pulse Resp BP Pulse Ox 06/12/21 15:34 36.9 C 103 H 18 106/73 97 06/12/21 14:53 115 H 06/12/21 11:46 36.8 C 101 H 16 99/62 L 97 06/12/21 08:26 36.6 C 116 H 18 105/68 99 06/12/21 07:52 69 18 100/71 98 06/12/21 07:47 70 18 98/54 L 98 06/12/21 07:42 70 16 104/62 99 Laboratory Results Short CBC 06/12/21 Range/Units 06:18 WBC 14.86 H (4.8-10.8) K/uL Hgb 13.6 L (14.0-18.0) g/dL Hct 41.3 L (42-52) % Plt Count 206 (130-400) K/uL BMP 06/12/21 06:18 Sodium 137 Potassium 4.4 Chloride 103 Carbon Dioxide 24 BUN 22 Creatinine 1.31 Glucose 114 H Calcium 8.6 (1) Chest pain Chest pain type: unspecified Qualified Code(s): R07.9 - Chest pain, unspecified
[2021-06-12] MEDS: ATORVASTATIN 40 MG TAB PO SCH (21:25)
[2021-06-12] MEDS: LOSARTAN POTASSIUM 25 MG TAB PO SCH (21:27)
[2021-06-12] MEDS: carvediloL 3.125 MG TAB PO SCH (21:27)
[2021-06-13 07:10] LABS: Hematocrit (blood only) 39.8 % (42-52); Hemoglobin 13.5 g/dL (14.0-18.0); Mean Corpuscular Hemoglobin 27.6 pg (25-34); Mean Corpuscular Hgb Conc 33.9 g/dL (32-36); Mean Corpuscular Volume 81.2 fL (80-100); Mean Platelet Volume 10.6 fL (7.4-10.4); Platelet Count 224 K/uL (130-400); RDW Coefficient of Variation 14.7 % (11.5-14.5); RDW Standard Deviation 43.2 fL (36.4-46.3); White Blood Count 10.62 K/uL (4.8-10.8)
[2021-06-13 07:37] LABS: BUN Creatinine Ratio 19.2 (10-20); Calcium 8.3 mg/dl (8.5-10.1); Est GFR (African American) 68.1 ml/min; Est GFR (Non-African American) 58.8 ml/min; Potassium 4.1 mmol/L (3.5-5.1)
[2021-06-13] MEDS: INSULIN ASPART PER UNIT SC SCH ×4 (08:15→20:29)
[2021-06-13] MEDS: POTASSIUM CHLORIDE 10 MEQ TABCR PO SCH (08:21)
[2021-06-13] MEDS: AMIODARONE 200 MG TAB PO SCH ×3 (08:21→17:28)
[2021-06-13] MEDS: carvediloL 3.125 MG TAB PO SCH ×2 (08:21→20:28)
[2021-06-13] MEDS: FUROSEMIDE 40 MG TAB PO SCH (08:21)
[2021-06-13] MEDS: SPIRONOLACTONE 25 MG TAB PO SCH (08:21)
[2021-06-13] MEDS: APIXABAN 5 MG TABLET PO SCH ×2 (08:22→20:27)
--- NOTE | 2021-06-13 13:29 | Cardiology Progress Note ---
Date of Service June 13, 2021 Assessment & Plan (1) Atrial fibrillation with RVR: (2) Paroxysmal atrial fibrillation: (3) Nonischemic cardiomyopathy: (4) Tachycardia induced cardiomyopathy: (5) Diabetes mellitus, type II: (6) LBBB (left bundle branch block): Plan: Patient is a 66-year-old male with paroxysmal atrial fibrillation past tachycardia mediated nonischemic cardiomyopathy presents now with acute onset of tachyarrhythmias and chest pressure improved with rate control. No recent symptoms of angina congestive heart failure with good exercise tolerance until current complaint Patient underwent synchronized electrical cardioversion with initial success however lapsed back into atrial fibrillation after 30 minutes Plan: Continue oral anticoagulants Continue amiodarone load. Keep n.p.o. after midnight for possible synchronized electrical cardioversion in am Admission and Anticipated Discharge Date Admission Date: June 10, 2021 Subjective Patient was seen and examined, chart, medications, telemetry reviewed. Remains in atrial fibrillation heart rate approximately 100. No cardiac complaints. No chest pain shortness of breath dizziness or lightheadedness. No arrhythmias on telemetry Review of Systems Review of Systems: All systems reviewed & are unremarkable except as noted in Subjective Physical Exam Constitutional: WD/WN, vitals as above Eyes: PERRL, conjunctivae normal, anicteric sclerae ENMT: external ear and nose normal, oropharynx normal Neck: trachea midline, no thyromegaly Respiratory: normal respiratory effort, lungs clear to auscultation Cardiovascular: Rate/Rhythm: + tachycardic and + irregularly irregular Heart Sounds: normal S1 and normal S2; no gallop and no murmur Palpation: normal PMI Vessels: normal carotid upstroke and radial pulses present; no JVD and no carotid bruit Extremities: no edema Gastrointestinal (Abdomen): normal bowel sounds, soft, nontender, no hepatosplenomegaly Musculoskeletal: no cyanosis or clubbing, extremities motor strength 5/5 Skin: no rashes, warm and dry Neurologic: PERRL, EOMI, accommodation nl, no face palsy, no dysarthria Psychiatric: A+Ox3, euthymic affect Results & Data ([facility]) Vital Signs (Past 12 Hours) Vital Signs Temp Pulse Resp BP Pulse Ox 06/13/21 11:42 36.8 C 107 H 14 99/67 L 97 06/13/21 07:52 37.2 C 105 H 13 115/81 99 06/13/21 04:24 36.4 C L 94 H 17 111/77 97 Laboratory Results Laboratory Results - last 24 hr 06/12/21 06/12/21 06/13/21 16:18 20:59 06:15 WBC 10.62 RBC 4.90 Hgb 13.5 L Hct 39.8 L MCV 81.2 MCH 27.6 MCHC 33.9 RDW Std Deviation 43.2 RDW Coeff of Josey 14.7 H Plt Count 224 MPV 10.6 H Sodium Potassium Chloride Carbon Dioxide Anion Gap BUN Creatinine Est Cr Clr Drug Dosing Est GFR ( Amer) Est GFR (Non-Af Amer) BUN/Creatinine Ratio Glucose POC Glucose 137 H 182 H Calcium 06/13/21 06/13/21 06/13/21 06:15 07:40 11:40 WBC RBC Hgb Hct MCV MCH MCHC RDW Std Deviation RDW Coeff of Josey Plt Count MPV Sodium 137 Potassium 4.1 Chloride 103 Carbon Dioxide 25 Anion Gap 9 BUN 24 H Creatinine 1.25 Est Cr Clr Drug Dosing 76.0 Est GFR ( Amer) 68.1 Est GFR (Non-Af Amer) 58.8 BUN/Creatinine Ratio 19.2 Glucose 122 H POC Glucose 123 H 197 H Calcium 8.3 L
--- NOTE | 2021-06-13 17:21 | Hospitalist Progress Note ---
Date of Service June 13, 2021 Assessment & Plan (1) Chest pain: (2) Atrial fibrillation with RVR: (3) Paroxysmal atrial fibrillation: Plan: Patient is 66 yr male with H/O Paroxysmal atrial fibrillation s/p cardioversion in 01/2020, on chronic Eliquis, H/O CHF with episode A. fib RVR in 2019, nonischemic cardiomyopathy, DM II, HTN, dyslipidemia, chronic LBBB, CKD III presented to ER with complaint of anterior chest pressure. Atrial fibrillation RVR Chronic left bundle branch block H/O nonischemic cardiomyopathy Chest Pain due to above --CXR:No acute cardiopulmonary findings. Stable cardiomegaly. --Troponin X 2: Negative --Normal TSH --ECHO: Mild concentric LVH. Septal motion is consistent with conduction abnormality. Mild to moderate global hypokinesis of left ventricle. EF 25 to 30%. Moderate MR. No signs of significant volume overload Failed cardioversion on 06/12/2019 Decrease carvedilol 3.125 mg twice daily Continue Lasix 40 mg daily Monitor volume status Lopressor as needed Continue Eliquis for anticoagulation Appreciate cardiology input Continue amiodarone load Plan for pulmonary vein isolation if intolerance to amiodarone as per cardiology NPO after midnight for possible repeat cardioversion in the morning Monitor QTC (4) Nonischemic cardiomyopathy: Plan: In 2016 with return normal LV function Cardiac cath in 2016 no obstructive CAD Continue home diuretics Monitor I's and O's, daily weight, volume status (5) Diabetes mellitus, type II: Plan: A1c: 7.1 on 02/25/21 Hold home meds Novolog sliding scale per protocol (6) Hypertension: Plan: Continue carvedilol, losartan Also on lasix, spironolactone (7) Hyperlipidemia: Plan: Continue atorvastatin (8) LBBB (left bundle branch block): Plan: Chronic (9) CKD (chronic kidney disease) stage 3, GFR 30-59 ml/min: Plan: Baseline Cr: 1.4-1.5 Cr at baseline Monitor renal function Avoid nephrotoxic agents when possible DVT Px On Eliquis Code Status Full Code Admission and Anticipated Discharge Date Admission Date: June 10, 2021 Subjective Patient is seen and examined at bedside Offers no complaints Feels well Cussed with cardiology today. Denies any chest pain, shortness of breath, dizziness, nausea, abdominal pain Review of Systems Review of Systems: All systems reviewed & are unremarkable except as noted in Subjective Physical Exam Physical Exam: Physical Exam: Vitals signs as noted above General Appearance:Moderately built and nourished, no apparent distress Head: normocephalic, Atraumatic Eyes: normal inspection, EOMI Neck: supple, Trachea midline Respiratory/Chest: Normal breath sounds, CTA, No accessory muscle use Cardiovascular: Irregularly irregular, tachycardia , No murmur Abdomen/GI:Soft, Non tender, Bowel sounds present Extremities/Musculoskeletal:normal inspection, Trace edema Neurologic/Psych:AAOX3, grossly no focal neurological deficits Skin: normal color, warm Results & Data Results & Data ([facility]) Vital Signs (Past 12 Hours) Vital Signs Temp Pulse Resp BP Pulse Ox 06/13/21 16:02 36.6 C 91 H 17 108/70 100 06/13/21 11:42 36.8 C 107 H 14 99/67 L 97 06/13/21 07:52 37.2 C 105 H 13 115/81 99 Laboratory Results Short CBC 06/13/21 Range/Units 06:15 WBC 10.62 (4.8-10.8) K/uL Hgb 13.5 L (14.0-18.0) g/dL Hct 39.8 L (42-52) % Plt Count 224 (130-400) K/uL BMP 06/13/21 06:15 Sodium 137 Potassium 4.1 Chloride 103 Carbon Dioxide 25 BUN 24 H Creatinine 1.25 Glucose 122 H Calcium 8.3 L (1) Chest pain Chest pain type: unspecified Qualified Code(s): R07.9 - Chest pain, unspecified
[2021-06-13] MEDS: ATORVASTATIN 40 MG TAB PO SCH (20:27)
[2021-06-13] MEDS: LOSARTAN POTASSIUM 25 MG TAB PO SCH (20:27)
[2021-06-14 07:43] LABS: BUN Creatinine Ratio 17.7 (10-20); Calcium 8.3 mg/dl (8.5-10.1); Creatinine Clr Calc Pharmacy 67.5 ml/min; Est GFR (African American) 58.9 ml/min; Est GFR (Non-African American) 50.8 ml/min; Potassium 3.9 mmol/L (3.5-5.1)
[2021-06-14] MEDS: INSULIN ASPART PER UNIT SC SCH ×4 (07:49→21:23)
[2021-06-14] MEDS: APIXABAN 5 MG TABLET PO SCH ×2 (08:28→21:38)
[2021-06-14] MEDS: carvediloL 3.125 MG TAB PO SCH ×2 (08:28→21:37)
[2021-06-14] MEDS: FUROSEMIDE 40 MG TAB PO SCH (08:29)
[2021-06-14] MEDS: SPIRONOLACTONE 25 MG TAB PO SCH (08:29)
[2021-06-14] MEDS: POTASSIUM CHLORIDE 10 MEQ TABCR PO SCH (08:29)
[2021-06-14] MEDS: AMIODARONE 200 MG TAB PO SCH ×3 (08:29→21:37)
--- NOTE | 2021-06-14 10:19 | Cardiology Progress Note ---
Date of Service June 14, 2021 Assessment & Plan (1) Atrial fibrillation with RVR: (2) Paroxysmal atrial fibrillation: (3) Nonischemic cardiomyopathy: (4) Tachycardia induced cardiomyopathy: (5) Diabetes mellitus, type II: (6) LBBB (left bundle branch block): Plan: Patient is a 66-year-old male with paroxysmal atrial fibrillation past tachycardia mediated nonischemic cardiomyopathy presents now with acute onset of tachyarrhythmias and chest pressure improved with rate control. No recent symptoms of angina congestive heart failure with good exercise tolerance until current complaint Patient underwent synchronized electrical cardioversion with initial success however lapsed back into atrial fibrillation after 30 minutes on 06/12/2021 Rates are improving but he remains in atrial fibrillation QT corrected improved Plan: Synchronized electrical cardioversion this morning, Future considerations for PVI ablation Admission and Anticipated Discharge Date Admission Date: June 10, 2021 Physical Exam Constitutional: WD/WN, vitals as above Eyes: PERRL, conjunctivae normal, anicteric sclerae ENMT: external ear and nose normal, oropharynx normal Neck: trachea midline, no thyromegaly Respiratory: normal respiratory effort, lungs clear to auscultation Cardiovascular: Rate/Rhythm: + tachycardic and + irregularly irregular Heart Sounds: normal S1 and normal S2; no gallop and no murmur Palpation: normal PMI Vessels: normal carotid upstroke and radial pulses present; no JVD and no carotid bruit Extremities: no edema Gastrointestinal (Abdomen): normal bowel sounds, soft, nontender, no hepatosplenomegaly Musculoskeletal: no cyanosis or clubbing, extremities motor strength 5/5 Skin: no rashes, warm and dry Neurologic: PERRL, EOMI, accommodation nl, no face palsy, no dysarthria Psychiatric: A+Ox3, euthymic affect Results & Data ([facility]) Vital Signs (Past 12 Hours) Vital Signs Temp Pulse Pulse Resp BP Pulse Ox 06/14/21 07:23 36.8 C 96 H 17 138/97 97 06/14/21 03:27 36.6 C 98 H 17 107/73 97 06/13/21 23:00 112 H 06/13/21 22:31 36.4 C L 95 H 18 101/70 98 Laboratory Results Laboratory Results - last 24 hr 06/13/21 06/13/21 06/13/21 11:40 16:04 20:27 Sodium Potassium Chloride Carbon Dioxide Anion Gap BUN Creatinine Est Cr Clr Drug Dosing Est GFR ( Amer) Est GFR (Non-Af Amer) BUN/Creatinine Ratio Glucose POC Glucose 197 H 200 H 129 H Calcium 06/14/21 06/14/21 06:54 07:00 Sodium 136 Potassium 3.9 Chloride 103 Carbon Dioxide 26 Anion Gap 7 BUN 25 H Creatinine 1.41 H Est Cr Clr Drug Dosing 67.5 Est GFR ( Amer) 58.9 Est GFR (Non-Af Amer) 50.8 BUN/Creatinine Ratio 17.7 Glucose 139 H POC Glucose 141 H Calcium 8.3 L ECG Additional Comments: 14-JUN-2021 03:22:54 [facility]-PCU ROUTINE RETRIEVAL Atrial fibrillation with premature ventricular or aberrantly conducted complexes Left axis deviation Left bundle branch block Abnormal ECG When compared with ECG of 13-JUN-2021 14:11, (unconfirmed) QRS axis Shifted left QT has shortened, QTC 469
--- NOTE | 2021-06-14 10:48 | Anesthesiology Consultation ---
Date of Service June 14, 2021 Assessment & Plan (1) Encounter for pre-operative examination: Chart Review Chart Review: Acceptable Risk for Surgery Consults Requested none ASA ASA4 Proposed Anesthesia Anesthesia Type: MAC Risk / Benefits Reviewed With: PT / POA / Parent / Guardian, Accepts Plan and Informed Consent Obtained History Surgery Operation Date: 06/14/21 10:30 Proposed Procedures p Cardioversion - Edgar Bolden MD Height/Weight Height: 6 ft 1 in Weight: 118 kg Allergies Allergy/AdvReac Type Severity Reaction Status Date / Time cephalexin Allergy Intermediate hives Verified 06/10/21 14:43 Medications Home Medications Medication Instructions Recorded Confirmed Last Taken apixaban 5 mg tablet (Eliquis) 5 mg PO BID 02/08/20 06/10/21 06/10/21 atorvastatin 40 mg tablet 40 mg PO HS 02/08/20 06/10/21 06/09/21 canagliflozin 300 mg tablet 300 mg PO QAM 02/08/20 06/10/21 06/10/21 (Invokana) carvedilol 6.25 mg tablet 6.25 mg PO BID 02/08/20 06/10/21 06/10/21 metformin 500 mg tablet,extended 1,000 mg PO BIDM 02/08/20 06/10/21 06/10/21 release 24 hr potassium chloride 10 mEq 10 meq PO QAM 02/08/20 06/10/21 06/10/21 capsule,extended release spironolactone 25 mg tablet 25 mg PO QAM 02/08/20 06/10/21 06/10/21 furosemide 40 mg tablet (Lasix) 40 mg PO QAM 06/10/21 06/10/21 06/10/21 losartan 25 mg tablet 25 mg PO HS 06/10/21 06/10/21 06/09/21 Active Medications Generic Name Dose Route Start Last Admin Trade Name Freq PRN Reason Stop Dose Admin Amiodarone HCl 400 mg 06/12/21 13:00 06/14/21 08:29 Amiodarone 200 Mg Tab PO 07/12/21 12:59 400 mg TIDM MYNOR Administration Apixaban 5 mg 06/10/21 21:16 06/14/21 08:28 Apixaban 5 Mg Tablet PO 07/10/21 21:15 5 mg BID MYNOR Administration Atorvastatin Calcium 40 mg 06/10/21 21:16 06/13/21 20:27 Atorvastatin 40 Mg Tab PO 07/10/21 21:15 40 mg HS MYNOR Administration Carvedilol 3.125 mg 06/12/21 21:00 06/14/21 08:28 Carvedilol 3.125 Mg Tab PO 07/12/21 20:59 3.125 mg BID MYNOR Administration Furosemide 40 mg 06/11/21 09:00 06/14/21 08:29 Furosemide 40 Mg Tab PO 07/11/21 08:59 40 mg QAM MYNOR Administration Insulin Aspart 0 units 06/10/21 21:16 06/14/21 07:49 Insulin Aspart Per Unit SC 07/10/21 21:15 Not Given ACHS MYNOR Losartan Potassium 25 mg 06/10/21 21:16 06/13/21 20:27 Losartan Potassium 25 Mg Tab PO 07/10/21 21:15 25 mg HS MYNOR Administration Metoprolol Tartrate 5 mg 06/10/21 21:16 06/11/21 00:30 Metoprolol Tartrate 1 Mg/Ml Vial IV 07/10/21 21:15 5 mg Q6H PRN Administration Tachycardia Protocol Potassium Chloride 10 meq 06/11/21 09:00 06/14/21 08:29 Potassium Chloride 10 Meq Tabcr PO 07/11/21 08:59 10 meq QAM MYNOR Administration Spironolactone 25 mg 06/11/21 09:00 06/14/21 08:29 Spironolactone 25 Mg Tab PO 07/11/21 08:59 25 mg QAM MYNOR Administration NPO Date Last Intake of Fluids: 06/11/21 Time Last Intake of Fluids: 23:59 Date Last Intake of Solids: 06/11/21 Time Last Intake of Solids: 23:59 Past Medical History Medical History Atrial fibrillation with RVR CKD (chronic kidney disease) stage 3, GFR 30-59 ml/min Diabetes Diabetes mellitus, type II H/O pilonidal cyst Hyperlipidemia Hypertension LBBB (left bundle branch block) Nonischemic cardiomyopathy Paroxysmal atrial fibrillation Tachycardia induced cardiomyopathy Thyroid nodule Exercise / Class Metabolic Activity II 4-5 Yardwork/Stairs/Walk up hill Past Family History Family History Mother Cancer lung Father Emphysema lung Hypertension Grandfather (Paternal) Heart disease [place] at age 65 Grandmother Diabetes Past Surgical History Surgical History H/O colonoscopy S/P appendectomy S/P T&A (status post tonsillectomy and adenoidectomy) S/P vasectomy Past Anesthesia History No Hx of Anesthesia Complications and No Family Hx of Anesthesia Complications History of PONV No Hx of PONV and No Hx of Motion Sickness Social History Smoking Status: Never smoker Do You Dip or Chew Tobacco: No Hx Alcohol Use: Yes Alcohol type: beer alcohol intake frequency: a few times a week Hx Substance Use: No substance use type: does not use Physical Exam Vital Signs Last Vital Signs Temp 98.2 F 06/14/21 07:23 Pulse 180 H 06/14/21 10:41 Resp 18 06/14/21 10:41 BP 128/96 06/14/21 10:41 Pulse Ox 99 06/14/21 10:41 ENMT Mouth: + dental restorations Thyromental Distance: > or= 3.5 Finger Breadths Mallampati Class: II Neck normal visual inspection Respiratory normal respiratory effort Auscultation: lungs clear to auscultation bilaterally Cardiovascular Rate/Rhythm: + abnormal rate and + abnormal rhythm Testing Laboratory Results 06/13/21 06:15 06/14/21 06:54 PT 11.2 Seconds (9.0-12.0) 06/10/21 13:09 INR 1.1 (0.9-1.1) 06/10/21 13:09 APTT 29.7 Seconds (21.0-31.0) 06/10/21 13:09 Hemoglobin A1c 7.5 % (4.5-5.6) H 06/11/21 03:24 Urine Color Yellow 06/11/21 11:58 Urine Appearance Clear (Clear) 06/11/21 11:58 Urine pH 5.0 (4.5-7.5) 06/11/21 11:58 Ur Specific Heppner 1.024 (1.000-1.030) 06/11/21 11:58 Urine Protein Negative (Negative) 06/11/21 11:58 Urine Glucose (UA) 3+ (Negative) H 06/11/21 11:58 Urine Ketones Trace (Negative) H 06/11/21 11:58 Urine Nitrite Negative (Negative) 06/11/21 11:58 Ur Leukocyte Esterase Negative (Negative) 06/11/21 11:58 06/14/21 07:00 POC Glucose 141 H
[2021-06-14] MEDS ORDERED: LIDOCAINE 2% 2 ML VIAL/AMP(20MG/ML) INFIL ONE (11:02)
[2021-06-14] MEDS ORDERED: PROPOFOL IV EMULSION 10 MG/ML 20 ML VIAL IV ONE (11:02)
--- NOTE | 2021-06-14 11:14 | Cardioversion ---
Date of Service June 14, 2021 Electrical Cardioversion Rpt Electrical Cardioversion Report Patient was seen and examined, chart reviewed. Procedure of synchronized electrical cardioversion discussed in detail with the patient and informed consent obtained Patient sedated by anesthesia consultation, Dr. Huitron with continuous heart rate, O2 sat and end-tidal CO2 monitoring and underwent synchronized biphasic countershock of 200 J and 300 J with ultimately successful conversion to sinus rhythm. Patient aroused having tolerated well EKG: Sinus rhythm with premature ventricular beats, left bundle branch block. QT corrected 489
--- NOTE | 2021-06-14 12:32 | Anesthesiology Progress Note ---
Date of Service June 14, 2021 Anesthesia Post Procedure Vital Signs Vital Signs: Temp Pulse Pulse Resp BP Pulse Ox 06/14/21 12:09 73 16 105/64 97 06/14/21 11:25 72 16 109/68 96 06/14/21 11:10 62 14 112/74 99 06/14/21 10:55 64 14 117/61 99 06/14/21 10:41 180 H 18 128/96 99 06/14/21 07:23 98.2 F 96 H 17 138/97 97 06/14/21 03:27 97.9 F 98 H 17 107/73 97 06/13/21 23:00 112 H 06/13/21 22:31 97.5 F L 95 H 18 101/70 98 06/13/21 19:51 98.2 F 105 H 18 117/83 98 06/13/21 16:02 97.9 F 91 H 17 108/70 100 Pain Intensity Chest: Pain Intensity: 6 Transfer of Care Handoff Completed per policy Notes Mental Status: alert / awake / arousable and participated in evaluation Patient Amnestic to Procedure: Yes Nausea / Vomiting: adequately controlled Pain: adequately controlled Airway Patency, RR, SpO2: stable & adequate BP & HR: stable & adequate Hydration State: stable & adequate Anesthetic Complications: no major complications apparent and Pt Satisfied with anesthetic care
--- NOTE | 2021-06-14 12:59 | Electrocardiogram Report ---
Test Reason : Blood Pressure : / mmHG Vent. Rate : 106 BPM Atrial Rate : 106 BPM P-R Int : 000 ms QRS Dur : 156 ms QT Int : 410 ms P-R-T Axes : 000 014 127 degrees QTc Int : 544 ms Atrial flutter with variable A-V block Premature ventricular complexes Left bundle branch block Abnormal ECG When compared with ECG of 12-JUN-2021 08:27, No significant change Confirmed by Martin Rivera ([id number]) on 06/14/2021 12:59:09 PM Referred By: REFERRED SELF Confirmed By:Martin Rivera
--- NOTE | 2021-06-14 13:18 | Electrocardiogram Report ---
Test Reason : Blood Pressure : / mmHG Vent. Rate : 099 BPM Atrial Rate : 102 BPM P-R Int : 000 ms QRS Dur : 158 ms QT Int : 366 ms P-R-T Axes : 000 -33 103 degrees QTc Int : 469 ms Atrial flutter with variable A-V block Left axis deviation Left bundle branch block Abnormal ECG When compared with ECG of 13-JUN-2021 14:11, (unconfirmed) QRS axis Shifted left QT has shortened Confirmed by Martin Rivera ([id number]) on 06/14/2021 1:18:31 PM Referred By: REFERRED SELF Confirmed By:Martin Rivera
--- NOTE | 2021-06-14 14:55 | Hospitalist Progress Note ---
Date of Service June 14, 2021 Assessment & Plan (1) Chest pain: (2) Atrial fibrillation with RVR: (3) Paroxysmal atrial fibrillation: Plan: Patient is 66 yr male with H/O Paroxysmal atrial fibrillation s/p cardioversion in 01/2020, on chronic Eliquis, H/O CHF with episode A. fib RVR in 2019, nonischemic cardiomyopathy, DM II, HTN, dyslipidemia, chronic LBBB, CKD III presented to ER with complaint of anterior chest pressure. Atrial fibrillation RVR Chronic left bundle branch block H/O nonischemic cardiomyopathy Chest Pain due to above --CXR:No acute cardiopulmonary findings. Stable cardiomegaly. --Troponin X 2: Negative --Normal TSH --ECHO: Mild concentric LVH. Septal motion is consistent with conduction abnormality. Mild to moderate global hypokinesis of left ventricle. EF 25 to 30%. Moderate MR. No signs of significant volume overload Failed cardioversion on 06/12/2019 Successful Cardioversion on 06/14/21 Decrease carvedilol 3.125 mg twice daily Continue Lasix 40 mg daily Monitor volume status Lopressor as needed Continue Eliquis for anticoagulation Appreciate cardiology input Continue amiodarone 400mg TID Monitor QTC Currently in sinus Ventricular Tachycardia Patient had an asymptomatic 42 beats of VT on after Cardioversion this morning Currently in Sinus Monitor (4) Nonischemic cardiomyopathy: Plan: In 2016 with return normal LV function Cardiac cath in 2016 no obstructive CAD Continue home diuretics Monitor I's and O's, daily weight, volume status (5) Diabetes mellitus, type II: Plan: A1c: 7.1 on 02/25/21 Hold home meds Novolog sliding scale per protocol (6) Hypertension: Plan: Continue carvedilol, losartan Also on lasix, spironolactone (7) Hyperlipidemia: Plan: Continue atorvastatin (8) LBBB (left bundle branch block): Plan: Chronic (9) CKD (chronic kidney disease) stage 3, GFR 30-59 ml/min: Plan: Baseline Cr: 1.4-1.5 Cr at baseline Monitor renal function Avoid nephrotoxic agents when possible DVT Px On Eliquis Code Status Full Code Admission and Anticipated Discharge Date Admission Date: June 10, 2021 Subjective Patient is seen and examined at bedside Doing well prior to cardioversion Had cardioversion earlier today Denies any chest pain, shortness of breath, dizziness, nausea, abdominal pain No complaints Review of Systems Review of Systems: All systems reviewed & are unremarkable except as noted in Subjective Physical Exam Physical Exam: Physical Exam: Vitals signs as noted above General Appearance:Moderately built and nourished, no apparent distress Head: normocephalic, Atraumatic Eyes: normal inspection, EOMI Neck: supple, Trachea midline Respiratory/Chest: Normal breath sounds, CTA, No accessory muscle use Cardiovascular: Irregularly irregular, tachycardia , No murmur Abdomen/GI:Soft, Non tender, Bowel sounds present Extremities/Musculoskeletal:normal inspection, Trace edema Neurologic/Psych:AAOX3, grossly no focal neurological deficits Skin: normal color, warm Results & Data Results & Data ([facility]) Vital Signs (Past 12 Hours) Vital Signs Temp Pulse Resp BP Pulse Ox 06/14/21 12:09 73 16 105/64 97 06/14/21 11:25 72 16 109/68 96 06/14/21 11:10 62 14 112/74 99 06/14/21 10:55 64 14 117/61 99 06/14/21 10:41 180 H 18 128/96 99 06/14/21 07:23 36.8 C 96 H 17 138/97 97 06/14/21 03:27 36.6 C 98 H 17 107/73 97 Laboratory Results BMP 06/14/21 06:54 Sodium 136 Potassium 3.9 Chloride 103 Carbon Dioxide 26 BUN 25 H Creatinine 1.41 H Glucose 139 H Calcium 8.3 L (1) Chest pain Chest pain type: unspecified Qualified Code(s): R07.9 - Chest pain, unspecified
[2021-06-14] MEDS: LOSARTAN POTASSIUM 25 MG TAB PO SCH (21:36)
[2021-06-14] MEDS: ATORVASTATIN 40 MG TAB PO SCH (21:37)
[2021-06-15 07:39] LABS: BUN Creatinine Ratio 16.8 (10-20); Calcium 9.1 mg/dl (8.5-10.1); Creatinine Clr Calc Pharmacy 69.4 ml/min; Est GFR (Non-African American) 52.6 ml/min; Magnesium 1.9 mg/dl (1.7-2.4); Potassium 4.1 mmol/L (3.5-5.1)
[2021-06-15] MEDS: INSULIN ASPART PER UNIT SC SCH ×4 (08:16→20:50)
[2021-06-15] MEDS: AMIODARONE 200 MG TAB PO SCH ×4 (08:17→20:47)
[2021-06-15] MEDS: APIXABAN 5 MG TABLET PO SCH ×2 (08:18→20:49)
[2021-06-15] MEDS: carvediloL 3.125 MG TAB PO SCH ×2 (08:18→20:48)
[2021-06-15] MEDS: SPIRONOLACTONE 25 MG TAB PO SCH (08:19)
[2021-06-15] MEDS: POTASSIUM CHLORIDE 10 MEQ TABCR PO SCH (08:19)
--- NOTE | 2021-06-15 10:08 | Hospitalist Progress Note ---
Date of Service June 15, 2021 Assessment & Plan (1) Chest pain: (2) Atrial fibrillation with RVR: (3) Paroxysmal atrial fibrillation: Plan: per Dr. Colin's notes with addendum: Patient is 66 yr male with H/O Paroxysmal atrial fibrillation s/p cardioversion in 01/2020, on chronic Eliquis, H/O CHF with episode A. fib RVR in 2019, nonischemic cardiomyopathy, DM II, HTN, dyslipidemia, chronic LBBB, CKD III presented to ER with complaint of anterior chest pressure. Atrial fibrillation RVR Chronic left bundle branch block H/O nonischemic cardiomyopathy Chest Pain due to above --CXR:No acute cardiopulmonary findings. Stable cardiomegaly. --Troponin X 2: Negative --Normal TSH --ECHO: Mild concentric LVH. Septal motion is consistent with conduction abnormality. Mild to moderate global hypokinesis of left ventricle. EF 25 to 30%. Moderate MR. No signs of significant volume overload Failed cardioversion on 06/12/2019 Successful Cardioversion on 06/14/21 Decrease carvedilol 3.125 mg twice daily also on Amiodarone 200mg TID Continue Lasix 40 mg daily 06/15/21 remains in SR, HR 60s no cardiac symptoms d/c home when cleared by Cardiology Ventricular Tachycardia Patient had an asymptomatic 42 beats of VT on after Cardioversion 06/15/21 few episodes of PVC/V tach 4-5 beats asymptomatic on Metoprolol and Amiodarone per above (4) Nonischemic cardiomyopathy: Plan: In 2015 with return normal LV function Cardiac cath in 2015 no obstructive CAD -- euvolemic continue home diuretics (5) Diabetes mellitus, type II: Plan: A1c: 7.1 on 02/25/21 Hold home meds Novolog sliding scale per protocol (6) Hypertension: Plan: Continue carvedilol, losartan Also on lasix, spironolactone (7) Hyperlipidemia: Plan: Continue atorvastatin (8) LBBB (left bundle branch block): Plan: Chronic (9) CKD (chronic kidney disease) stage 3, GFR 30-59 ml/min: Plan: Baseline Cr: 1.4-1.5 Cr at baseline Monitor renal function Avoid nephrotoxic agents when possible DVT Px On Eliquis Code Status Full Code Disposition d/c home today when cleared by Cardiology service Admission and Anticipated Discharge Date Admission Date: June 10, 2021 Subjective ff up for A fib with RVR, etc seen resting in bed, comfortable tele: sinus rhythm, HR 60s, few episode PVCs/Vtach 4-5 beats no chest pain, dyspnea, palpitations, dizziness states he feels better overall ambulating with no problems states he is ready and would like to be discharged today if possible Review of Systems Review of Systems: all noted and negative except for above Physical Exam Physical Exam: General- oriented x 3, not in distress, speaks in sentences with no effort or accessory muscle use Eyes- anicteric Neck- no JVD Lungs- clear breath sounds bilaterally, no rales/wheezes Heart- normal rate, regular rhythm; no murmurs Abdomen- normal bowel sounds, nondistended, soft, nontender Extremities- no pretibial edema, no calf tenderness Neuro- alert, oriented x 3; no gross focal neurologic deficits Skin- warm & dry Results & Data Results & Data ([facility]) Vital Signs (Past 12 Hours) Vital Signs Temp Pulse Pulse Resp BP Pulse Ox 06/15/21 07:31 36.7 C 64 18 141/80 H 99 06/15/21 04:53 36.6 C 59 L 17 122/77 98 06/15/21 00:08 67 06/14/21 23:51 36.4 C L 76 17 107/70 96 all noted and reviewed including below (1) Chest pain Chest pain type: unspecified Qualified Code(s): R07.9 - Chest pain, un specified
--- NOTE | 2021-06-15 14:47 | Cardiology Progress Note ---
Date of Service June 15, 2021 Assessment & Plan (1) Atrial fibrillation with RVR: (2) Paroxysmal atrial fibrillation: (3) Nonischemic cardiomyopathy: (4) Tachycardia induced cardiomyopathy: (5) Diabetes mellitus, type II: (6) LBBB (left bundle branch block): Plan: Patient is a 66-year-old male with paroxysmal atrial fibrillation past tachycardia mediated nonischemic cardiomyopathy presents now with acute onset of tachyarrhythmias and chest pressure improved with rate control. No recent symptoms of angina congestive heart failure with good exercise tolerance until current complaint Patient underwent synchronized electrical cardioversion with initial success however lapsed back into atrial fibrillation after 30 minutes on 06/12/2021 Patient treated with oral amiodarone and subsequently underwent synchronized electrical cardioversion yesterday morning with successful return to sinus rhythm Yesterday afternoon at 1404 patient had 40 beat broken run of wide-complex tachycardia No further arrhythmias overnight currently ambulatory in the [facility] without d ifficulty. Plan: Discussed above findings in detail with patient and . We will continue amiodarone in hospital overnight Reassess LV systolic function in a.m. Given left bundle branch block, diffuse LV dysfunction, EF less than 35% patient would benefit from biventricular pacer defibrillator especially in light of wide-complex tachyarrhythmia yesterday Timing likely in 30 days and may warrant LifeVest in interim Admission and Anticipated Discharge Date Admission Date: June 10, 2021 Subjective Patient was seen and examined, chart, medications, telemetry reviewed Telemetry this morning demonstrates frequent ventricular ectopy and complex ventricular ectopy. Yesterday afternoon 40 beat broken run of wide-complex tachycardia asymptomatic No further atrial fibrillation no chest pains or discomfort Review of Systems Review of Systems: All systems reviewed & are unremarkable except as noted in Subjective Physical Exam Constitutional: WD/WN, vitals as above Eyes: PERRL, conjunctivae normal, anicteric sclerae ENMT: external ear and nose normal, oropharynx normal Neck: trachea midline, no thyromegaly Respiratory: normal respiratory effort, lungs clear to auscultation Cardiovascular: Rate/Rhythm: + tachycardic and + irregularly irregular Heart Sounds: normal S1 and normal S2; no gallop and no murmur Palpation: normal PMI Vessels: normal carotid upstroke and radial pulses present; no JVD and no carotid bruit Extremities: no edema Gastrointestinal (Abdomen): normal bowel sounds, soft, nontender, no hepatosplenomegaly Musculoskeletal: no cyanosis or clubbing, extremities motor strength 5/5 Skin: no rashes, warm and dry Neurologic: PERRL, EOMI, accommodation nl, no face palsy, no dysarthria Psychiatric: A+Ox3, euthymic affect Results & Data ([facility]) Vital Signs (Past 12 Hours) Vital Signs Temp Pulse Pulse Resp BP Pulse Ox 06/15/21 11:42 65 06/15/21 11:06 37.1 C 56 L 18 98/62 L 100 06/15/21 07:31 36.7 C 64 18 141/80 H 99 06/15/21 04:53 36.6 C 59 L 17 122/77 98 Laboratory Results Laboratory Results - last 24 hr 06/14/21 06/14/21 06/15/21 16:28 20:04 06:19 Sodium 135 L Potassium 4.1 Chloride 103 Carbon Dioxide 26 Anion Gap 6 BUN 23 Creatinine 1.37 Est Cr Clr Drug Dosing 69.4 Est GFR ( Amer) 61.0 Est GFR (Non-Af Amer) 52.6 BUN/Creatinine Ratio 16.8 Glucose 130 H POC Glucose 162 H 180 H Calcium 9.1 Magnesium 1.9 06/15/21 06/15/21 07:30 11:31 Sodium Potassium Chloride Carbon Dioxide Anion Gap BUN Creatinine Est Cr Clr Drug Dosing Est GFR ( Amer) Est GFR (Non-Af Amer) BUN/Creatinine Ratio Glucose POC Glucose 134 H 176 H Calcium Magnesium
--- NOTE | 2021-06-15 16:13 | Electrocardiogram Report ---
Test Reason : Blood Pressure : / mmHG Vent. Rate : 065 BPM Atrial Rate : 065 BPM P-R Int : 176 ms QRS Dur : 146 ms QT Int : 466 ms P-R-T Axes : 063 -07 112 degrees QTc Int : 484 ms Sinus rhythm with occasional Premature ventricular complexes Left bundle branch block Abnormal ECG When compared with ECG of 14-JUN-2021 03:22, Sinus rhythm has replaced Atrial flutter Vent. rate has decreased BY 34 BPM Confirmed by Martin Rivera ([id number]) on 06/15/2021 4:12:48 PM Referred By: REFERRED SELF Confirmed By:Martin Rivera
--- NOTE | 2021-06-15 16:25 | Electrocardiogram Report ---
Test Reason : Blood Pressure : / mmHG Vent. Rate : 063 BPM Atrial Rate : 063 BPM P-R Int : 176 ms QRS Dur : 150 ms QT Int : 522 ms P-R-T Axes : 041 -08 136 degrees QTc Int : 534 ms Sinus rhythm with frequent Premature ventricular complexes Left bundle branch block Abnormal ECG When compared with ECG of 14-JUN-2021 10:44, (unconfirmed) No significant change was found Confirmed by Martin Rivera ([id number]) on 06/15/2021 4:25:07 PM Referred By: REFERRED SELF Confirmed By:Martin Rivera
[2021-06-15] MEDS: ATORVASTATIN 40 MG TAB PO SCH (20:48)
[2021-06-15] MEDS: LOSARTAN POTASSIUM 25 MG TAB PO SCH (20:49)
[2021-06-16] MEDS: INSULIN ASPART PER UNIT SC SCH ×4 (08:22→21:11)
[2021-06-16] MEDS: carvediloL 3.125 MG TAB PO SCH ×2 (08:47→21:09)
[2021-06-16] MEDS: POTASSIUM CHLORIDE 10 MEQ TABCR PO SCH (08:48)
[2021-06-16] MEDS: SPIRONOLACTONE 25 MG TAB PO SCH (08:48)
[2021-06-16] MEDS: APIXABAN 5 MG TABLET PO SCH ×2 (08:48→21:09)
[2021-06-16] MEDS: AMIODARONE 200 MG TAB PO SCH ×4 (08:48→21:09)
--- NOTE | 2021-06-16 12:04 | Cardiology Progress Note ---
Date of Service June 16, 2021 Assessment & Plan (1) Atrial fibrillation with RVR: (2) Paroxysmal atrial fibrillation: (3) Nonischemic cardiomyopathy: (4) Tachycardia induced cardiomyopathy: (5) Diabetes mellitus, type II: (6) LBBB (left bundle branch block): Plan: Patient is a 66-year-old male with paroxysmal atrial fibrillation past tachycardia mediated nonischemic cardiomyopathy presents now with acute onset of tachyarrhythmias and chest pressure improved with rate control. No recent symptoms of angina congestive heart failure with good exercise tolerance until current complaint Patient underwent synchronized electrical cardioversion with initial success however lapsed back into atrial fibrillation after 30 minutes on 06/12/2021 Patient treated with oral amiodarone and subsequently underwent synchronized electrical cardioversion yesterday morning with successful return to sinus rhythm Yesterday afternoon at 1404 patient had 40 beat broken run of wide-complex tachycardia No further arrhythmias overnight currently ambulatory in the [facility] without d ifficulty. Plan: Echocardiogram demonstrates persistent LV dysfunction EF 25 to percent with dyssynergy contraction pattern Given left bundle branch block, diffuse LV dysfunction, EF less than 35% patient would benefit from biventricular pacer defibrillator especially in light of wide-complex tachyarrhythmia yesterday We will outpatient be discharged on current medical regimen Home with LifeVest modified settings rates greater than 180 bpm, 30 beats in duration for intervention Scheduled with electrophysiology N[place]ente, 06/20/2021, 8:30 AM Admission and Anticipated Discharge Date Admission Date: June 10, 2021 Subjective Patient seen and examined, chart, medications, telemetry reviewed. No difficulties overnight. No chest pains dizziness or lightheadedness.\ Telemetry did demonstrate once again several second run of wide-complex tachycardia. Review of Systems Review of Systems: All systems reviewed & are unremarkable except as noted in Subjective Physical Exam Constitutional: WD/WN, vitals as above Eyes: PERRL, conjunctivae normal, anicteric sclerae ENMT: external ear and nose normal, oropharynx normal Neck: trachea midline, no thyromegaly Respiratory: normal respiratory effort, lungs clear to auscultation Cardiovascular: Rate/Rhythm: + tachycardic and + irregularly irregular Heart Sounds: normal S1 and normal S2; no gallop and no murmur Palpation: normal PMI Vessels: normal carotid upstroke and radial pulses present; no JVD and no carotid bruit Extremities: no edema Gastrointestinal (Abdomen): normal bowel sounds, soft, nontender, no hepatosplenomegaly Musculoskeletal: no cyanosis or clubbing, extremities motor strength 5/5 Skin: no rashes, warm and dry Neurologic: PERRL, EOMI, accommodation nl, no face palsy, no dysarthria Psychiatric: A+Ox3, euthymic affect Results & Data ([facility]) Vital Signs (Past 12 Hours) Vital Signs Temp Pulse Resp BP Pulse Ox 06/16/21 11:24 36.5 C 61 18 109/76 99 06/16/21 08:44 68 110/67 06/16/21 07:55 36.7 C 71 20 127/82 97 06/16/21 03:54 36.7 C 62 20 104/73 98 Diagnostic Findings Laboratory Results - last 24 hr 06/15/21 06/15/21 06/16/21 16:33 20:31 07:24 POC Glucose 168 H 185 H 132 H 06/16/21 11:27 POC Glucose 174 H
--- NOTE | 2021-06-16 12:35 | Hospitalist Progress Note ---
Date of Service June 16, 2021 Assessment & Plan (1) Chest pain: (2) Atrial fibrillation with RVR: (3) Paroxysmal atrial fibrillation: Plan: per Dr. Colin's notes with addendum: Patient is 66 yr male with H/O Paroxysmal atrial fibrillation s/p cardioversion in 01/2020, on chronic Eliquis, H/O CHF with episode A. fib RVR in 2019, nonischemic cardiomyopathy, DM II, HTN, dyslipidemia, chronic LBBB, CKD III presented to ER with complaint of anterior chest pressure. Atrial fibrillation RVR Chronic left bundle branch block H/O nonischemic cardiomyopathy Chest Pain due to above --CXR:No acute cardiopulmonary findings. Stable cardiomegaly. --Troponin X 2: Negative --Normal TSH --ECHO: Mild concentric LVH. Septal motion is consistent with conduction abnormality. Mild to moderate global hypokinesis of left ventricle. EF 25 to 30%. Moderate MR. No signs of significant volume overload Failed cardioversion on 06/12/2019 Successful Cardioversion on 06/14/21 Decrease carvedilol 3.125 mg twice daily also on Amiodarone 200mg TID Continue Lasix 40 mg daily 06/16/21 no cardiac symptoms plan for Lifevest placement while admitted Ventricular Tachycardia Patient had an asymptomatic 42 beats of VT on after Cardioversion 06/16/21 (+) nonsustained Vtach episode overnight asymptomatic on Metoprolol and Amiodarone per above (4) Nonischemic cardiomyopathy: Plan: In 2016 with return normal LV function Cardiac cath in 2015 no obstructive CAD -- euvolemic continue home diuretics (5) Diabetes mellitus, type II: Plan: A1c: 7.1 on 02/25/21 Hold home meds Novolog sliding scale per protocol (6) Hypertension: Plan: Continue carvedilol, losartan Also on lasix, spironolactone (7) Hyperlipidemia: Plan: Continue atorvastatin (8) LBBB (left bundle branch block): Plan: Chronic (9) CKD (chronic kidney disease) stage 3, GFR 30-59 ml/min: Plan: Baseline Cr: 1.4-1.5 Cr at baseline Monitor renal function Avoid nephrotoxic agents when possible DVT Px On Eliquis Code Status Full Code Disposition d/c home today when cleared by Cardiology service Admission and Anticipated Discharge Date Admission Date: June 10, 2021 Subjective ff up for a fib RVR, V tach episode, etc had 15 sec V tach episode overnight resting in bed, comfortable states he feels fine overall no chest pain, dyspnea, palpitations, dizziness no other symptoms Review of Systems Review of Systems: all noted and negative except for above Physical Exam Physical Exam: General- oriented x 3, not in distress, speaks in sentences with no effort or accessory muscle use Eyes- anicteric Neck- no JVD Lungs- clear BS bilaterally, no rales/wheezes Heart- normal rate, regular rhythm; no murmurs Abdomen- normal bowel sounds, nondistended, soft, nontender Extremities- no pretibial edema, no calf tenderness Neuro- alert, oriented x 3; no gross focal neurologic deficits Skin- warm & dry Results & Data Results & Data ([facility]) Vital Signs (Past 12 Hours) Vital Signs Temp Pulse Resp BP Pulse Ox 06/16/21 11:24 36.5 C 61 18 109/76 99 06/16/21 08:44 68 110/67 06/16/21 07:55 36.7 C 71 20 127/82 97 06/16/21 03:54 36.7 C 62 20 104/73 98 all noted and reviewed including below (1) Chest pain Chest pain type: unspecified Qualified Code(s): R07.9 - Chest pain, unspecified
[2021-06-16] MEDS: ATORVASTATIN 40 MG TAB PO SCH (21:10)
[2021-06-16] MEDS: LOSARTAN POTASSIUM 25 MG TAB PO SCH (21:10)
[2021-06-17] MEDS: INSULIN ASPART PER UNIT SC SCH (09:38)
[2021-06-17] MEDS: carvediloL 3.125 MG TAB PO SCH (09:40)
[2021-06-17] MEDS: APIXABAN 5 MG TABLET PO SCH (09:40)
[2021-06-17] MEDS: AMIODARONE 200 MG TAB PO SCH (09:40)
[2021-06-17] MEDS: SPIRONOLACTONE 25 MG TAB PO SCH (09:41)
[2021-06-17] MEDS: POTASSIUM CHLORIDE 10 MEQ TABCR PO SCH (09:42)
--- NOTE | 2021-06-17 13:01 | Cardiology Progress Note ---
Date of Service June 17, 2021 Assessment & Plan (1) Atrial fibrillation with RVR: (2) Paroxysmal atrial fibrillation: (3) Nonischemic cardiomyopathy: (4) Tachycardia induced cardiomyopathy: (5) Diabetes mellitus, type II: (6) LBBB (left bundle branch block): Plan: Patient is a 66-year-old male with paroxysmal atrial fibrillation past tachycardia mediated nonischemic cardiomyopathy presents now with acute onset of tachyarrhythmias and chest pressure improved with rate control. No recent symptoms of angina congestive heart failure with good exercise tolerance until current complaint Patient underwent synchronized electrical cardioversion with initial success however lapsed back into atrial fibrillation after 30 minutes on 06/12/2021 Patient treated with oral amiodarone and subsequently underwent synchronized electrical cardioversion yesterday morning with successful return to sinus rhythm Yesterday afternoon at 1404 patient had 40 beat broken run of wide-complex tachycardia No further arrhythmias overnight currently ambulatory in the [facility] without d ifficulty. Plan: Echocardiogram demonstrates persistent LV dysfunction EF 25 to percent with dyssynergy contraction pattern Given left bundle branch block, diffuse LV dysfunction, EF less than 35% patient would benefit from biventricular pacer defibrillator especially in light of wide-complex tachyarrhythmia We will be discharged on current medical regimen Home with LifeVest modified settings rates greater than 180 bpm, 30 beats in duration for intervention Scheduled with electrophysiology [place], 06/20/2021, 8:30 AM Admission and Anticipated Discharge Date Admission Date: June 10, 2021 Subjective Patient was seen and examined, chart, telemetry reviewed. No symptoms overnight but short runs of ventricular complex ectopy. Being fitted for LifeVest this morning. Review of Systems Review of Systems: All systems reviewed & are unremarkable except as noted in Subjective Physical Exam Constitutional: WD/WN, vitals as above no acute distress Eyes: PERRL, conjunctivae normal, anicteric sclerae ENMT: external ear and nose normal, oropharynx normal Neck: trachea midline, no thyromegaly Respiratory: normal respiratory effort, lungs clear to auscultation Cardiovascular: RRR, no murmur, no edema Musculoskeletal: no cyanosis or clubbing, extremities motor strength 5/5 Skin: no rashes, warm and dry Results & Data ([facility]) Vital Signs (Past 12 Hours) Vital Signs Temp Pulse Pulse Resp BP Pulse Ox 06/17/21 10:49 36.6 C 59 L 20 119/70 98 06/17/21 08:00 59 L 06/17/21 07:54 36.6 C 59 L 20 119/70 98 06/17/21 03:44 36.5 C 61 18 120/76 97 Laboratory Results Laboratory Results - last 24 hr 06/16/21 06/16/21 06/17/21 16:35 20:11 07:27 POC Glucose 137 H 158 H 120 H
== END 2021-06-17 11:57 | disposition home or self-care (01) | DRG 309 ==
LOC: ED 12:53 → 2S 16:38 → SUATTDRO 16:38 → 2S 20:41 → 2E 06-14 10:32
DX: I48.0 Paroxysmal atrial fibrillation; I47.2 Ventricular tachycardia; Z82.49 Family history of ischemic heart disease and other diseases of the circulatory system; I44.7 Left bundle-branch block, unspecified; Z79.899 Other long term (current) drug therapy; Z79.84 Long term (current) use of oral hypoglycemic drugs; E11.22 Type 2 diabetes mellitus with diabetic chronic kidney disease; E11.65 Type 2 diabetes mellitus with hyperglycemia; N18.30 Chronic kidney disease, stage 3 unspecified; E78.5 Hyperlipidemia, unspecified; Z88.1 Allergy status to other antibiotic agents; I50.9 Heart failure, unspecified; I34.0 Nonrheumatic mitral (valve) insufficiency; I13.0 Hypertensive heart and chronic kidney disease with heart failure and stage 1 through stage 4 chronic kidney disease, or unspecified chronic kidney disease; I42.8 Other cardiomyopathies; Z79.01 Long term (current) use of anticoagulants